=== PATIENT | male | born 1975 | race Caucasian/White ===

== ENCOUNTER 2017-05-15 16:31 | Emergency (ER) | payer SELFPAY ==
--- NOTE | 2017-05-15 19:01 | XRay Report ---
FINAL REPORT PROCEDURE: XR KNEE 3V RT TECHNIQUE: Right knee radiographs, AP, lateral and oblique views. CPT 62674 HISTORY: fall,edema,pain COMPARISON: No prior studies are available for comparison. FINDINGS: Fracture (s) and/or Dislocation(s): None . Alignment: Normal . Joint space(s): Moderate-sized joint effusion is visualized. Joint spaces appear well preserved.. Soft tissues: Normal . Bone mineralization: Normal . Foreign bodies: None . IMPRESSION: Moderate-sized joint effusion. No evidence of fracture or dislocation.
[2017-05-15] MEDS ORDERED: ULTRAM PO ONE (20:44)
--- NOTE | 2017-05-15 20:51 | Emergency Department Report ---
ED Lower Extremity HPI - General Chief Complaint: Extremity Injury, Lower Stated Complaint: RIGHT KNEE INJURY Time Seen by Provider: 05/15/17 20:00 Source: patient Mode of arrival: Wheelchair Limitations: No Limitations - History of Present Illness Initial Comments: This is a 41-year-old male nontoxic, well nourished in appearance, no acute signs of distress presents to the ED complaining of left knee pain 2 days. Patient stated he was walking on the street and right knee locked up and patient extend her knee and heard a popping sensation which immediately caused severe pain. Patient denies any trauma to the region. Patient is complaining also with swelling immediately that occurred at night. Denies numbness, tingling, decreased range of motion, fever, chills, joint redness, chest pain, shortness of breath, headache, or stiff neck. Patient state he has limited gait due to the pain. Patient denies any allergies or past medical history. MD Complaint: knee injury -: Gradual, days(s) (2) Injury: Knee: Right Type of Injury: other (locked up) Place: street/outdoors Severity: moderate Severity scale (0 -10): 8 Improves With: nothing Worsens With: weight bearing, movement Associated Symptoms: snap/pop sensation, swelling, able to partially bear weight. denies: numbness, tingling, unable to bear weight - Related Data Previous Rx's Medication Instructions Recorded Last Taken Type Ibuprofen [Motrin 600 MG tab] 600 mg PO Q8H PRN #30 tablet 05/15/17 Unknown Rx Allergies Allergy/AdvReac Type Severity Reaction Status Date / Time No Known Allergies Allergy Verified 05/15/17 17:01 ED Review of Systems ROS: Stated complaint: RIGHT KNEE INJURY Other details as noted in HPI Constitutional: denies: chills, fever Eyes: denies: eye pain, eye discharge, vision change ENT: denies: ear pain, throat pain Respiratory: denies: cough, shortness of breath, wheezing Cardiovascular: denies: chest pain, palpitations Endocrine: no symptoms reported Gastrointestinal: denies: abdominal pain, nausea, diarrhea Genitourinary: denies: urgency, dysuria Musculoskeletal: denies: back pain, joint swelling, arthralgia Skin: denies: rash, lesions Neurological: denies: headache, weakness, paresthesias Psychiatric: denies: anxiety, depression Hematological/Lymphatic: denies: easy bleeding, easy bruising ED Past Medical Hx - Past Medical History Previous Medical History?: No - Surgical History Past Surgical History?: No - Social History Smoking Status: Current Every Day Smoker Substance Use Type: Alcohol - Medications Home Medications: Home Medications Medication Instructions Recorded Confirmed Last Taken Type Ibuprofen [Motrin 600 MG tab] 600 mg PO Q8H PRN #30 tablet 05/15/17 Unknown Rx ED Physical Exam - General Limitations: No Limitations General appearance: alert, in no apparent distress - Head Head exam: Present: atraumatic, normocephalic, normal inspection - Eye Eye exam: Present: normal appearance, PERRL, EOMI. Absent: scleral icterus, conjunctival injection, nystagmus, periorbital swelling, periorbital tenderness Pupils: Present: normal accommodation - ENT ENT exam: Present: normal exam, normal orophraynx, mucous membranes moist, TM's normal bilaterally, normal external ear exam - Neck Neck exam: Present: normal inspection, full ROM. Absent: tenderness, meningismus, lymphadenopathy, thyromegaly - Respiratory Respiratory exam: Present: normal lung sounds bilaterally. Absent: respiratory distress, wheezes, rales, rhonchi, stridor, chest wall tenderness, accessory muscle use, decreased breath sounds, prolonged expiratory - Cardiovascular Cardiovascular Exam: Present: regular rate, normal rhythm, normal heart sounds. Absent: bradycardia, tachycardia, irregular rhythm, systolic murmur, diastolic murmur, rubs, gallop - GI/Abdominal GI/Abdominal exam: Present: soft, normal bowel sounds. Absent: distended, guarding, rebound, rigid, diminished bowel sounds - Rectal Rectal exam: Present: deferred - Extremities Exam Extremities exam: Present: normal inspection, full ROM, tenderness, normal capillary refill. Absent: pedal edema, joint swelling, calf tenderness - Expanded Lower Extremity Exam Right Hip exam: Present: normal inspection, full ROM, external rotation, internal rotation, pelvic stability. Absent: tenderness, swelling, abrasion, laceration , ecchymosis, deformity, crepidus, dislocation, erythema, shortening Upper Leg exam: Present: normal inspection, full ROM. Absent: tenderness, swelling, abrasion, laceration, ecchymosis, deformity, crepidus, dislocation, erythema Knee exam: Present: normal inspection, full ROM, tenderness, swelling, full knee extension. Absent: abrasion, laceration, ecchymosis, deformity, crepidus, dislocation, erythema, effusion, pain w/ pronation/supination, posterior draw sign, pain/laxity with valgus, pain/laxity with varus Lower Leg exam: Present: normal inspection, full ROM. Absent: tenderness, swelling, abrasion, laceration, ecchymosis, deformity, crepidus, dislocation, erythema, palpable cord, Diana's sign Ankle exam: Present: normal inspection, full ROM. Absent: tenderness, swelling , abrasion, laceration, ecchymosis, deformity, crepidus, dislocation, erythema, anterior draw sign Foot/Toe exam: Present: normal inspection, full ROM. Absent: tenderness, swelling, abrasion, laceration, ecchymosis, deformity, crepidus, dislocation, erythema, amputation, puncture wound, foreign body, calcaneal tenderness, tenderness at base of 5th metatarsal, nail avulsion, subungual hematoma Neuro vascular tendon exam: Present: no vascular compromise. Absent: pulse deficit, abnormal cap refill, motor deficit, sensory deficit, tendon deficit, extremity cold to touch, pallor, abnormal 2-point discrimination, decreased fine /light touch, foot drop, peroneal nerve deficit, significant pain with passive ROM of distal joint Gait: Positive: observed and limited by pain - Back Exam Back exam: Present: normal inspection, full ROM. Absent: tenderness, CVA tenderness (R), CVA tenderness (L), muscle spasm, paraspinal tenderness, vertebral tenderness, rash noted - Neurological Exam Neurological exam: Present: alert, oriented X3, CN II-XII intact, normal gait, reflexes normal - Psychiatric Psychiatric exam: Present: normal affect, normal mood - Skin Skin exam: Present: warm, dry, intact, normal color. Absent: rash ED Course Vital Signs 05/15/17 05/15/17 16:58 20:50 Temperature 98.2 F Pulse Rate 75 Respiratory 16 18 Rate Blood Pressure 121/94 O2 Sat by Pulse 99 Oximetry - Reevaluation(s) Reevaluation #1: 05/15/17 20:56 Patient is speaking in full sentences with no signs of distress noted. Reevaluation #2: 05/15/17 21:03 Patient's is seen at the time of discharge and stated she will go the patient home due to medication that'll make him sedated/drowsiness that was given to him in the ED (Ultram). ED Lower Extremity MDM - Radiology Data Radiology results: report reviewed interpreted by me: Dr. Gracia Moderate-sized joint effusion. No evidence of fracture or dislocation. - Medical Decision Making This is 41-year-old male right knee strain. X-ray has been obtained and dictated by radiologist. Patient notified of x-ray results with noted by the patient. Patient received ice and extremity as well as ibuprofen 800 milligrams by mouth in the ED. Patient was instructed to rest, elevate, ice extremity. Patient also received knee immobilizer with crutches and educated by nurse that he use crutches. Patient was referred to follow up with a primary care doctor/orthopedic doctor in 3-5 days or if symptoms worsen continue return to emergency room as soon as possible. At time time of discharge , the patient does not seem toxic or ill in appearance. No acute signs of distress noted. Patient agrees to discharge treatment plan of care. No further questions noted by the patient. Critical care attestation.: If time is entered above; I have spent that time in minutes in the direct care of this critically ill patient, excluding procedure time. ED Disposition Clinical Impression: Knee strain Qualifiers: Encounter type: initial encounter Laterality: right Qualified Code(s): S86.911A - Strain of unspecified muscle(s) and tendon(s) at lower leg level, right leg, initial encounter Disposition: DC-01 TO HOME OR SELFCARE Is pt being admited?: No Does the pt Need Aspirin: No Condition: Stable Instructions: Ibuprofen (By mouth), Crutch Instructions (ED), Knee Pain (ED), RICE Therapy (ED), Knee Immobilizer (ED) Additional Instructions: Follow-up with the orthopedic doctor in 3-5 days or if symptoms worsen to continue return to emergency room as was possible. Rest, elevate, ice extremity. Prescriptions: Ibuprofen [Motrin 600 MG tab] 600 mg PO Q8H PRN #30 tablet PRN Reason: Pain Referrals: PRIMARY CAREMD [Primary Care Provider] - 3-5 Days DIDIER CANELA MD [Staff Physician] - 3-5 Days [facility] [Outside] - 3-5 Days [facility] [Outside] - 3-5 Days
[2017-05-15 21:46] VITALS: BP 148/88
== END 2017-05-15 21:46 | disposition home or self-care (01) ==
LOC: ED 16:31
DX: S86.811A Strain of other muscle(s) and tendon(s) at lower leg level, right leg, initial encounter (principal); F17.200 Nicotine dependence, unspecified, uncomplicated; X58.XXXA Exposure to other specified factors, initial encounter; Y93.89 Activity, other specified; Y92.89 Other specified places as the place of occurrence of the external cause; Y99.8 Other external cause status

== ENCOUNTER 2017-09-12 23:28 | Inpatient (IN) | payer OTHER ==
[2017-09-13 01:22] LABS: Albumin 3.7 g/dL (3.9-5)
[2017-09-13] MEDS ORDERED: TYLENOL PO ONE (01:26)
[2017-09-13] MEDS ORDERED: NACL 0.9% 1000 ML 1,000 ML IV ONE ×2 (01:26→02:51)
[2017-09-13] MEDS ORDERED: ZOFRAN IV ONE (01:35)
[2017-09-13] MEDS ORDERED: ZOFRAN ONE (01:37)
[2017-09-13 01:49] LABS: Hemoglobin 18.8 gm/dl (11.8-15.2); Lymphocytes # (Auto) 0.4 K/mm3 (1.2-5.4); Lymphocytes % (Auto) 3.1 % (13.4-35.0); Mean Corpuscular HGB Conc 34 % (32-34); Mean Corpuscular Hemoglobin 32 pg (28-32); Mean Corpuscular Volume 93 fl (84-94); Monocytes # (Auto) 1.4 K/mm3 (0.0-0.8); Monocytes % (Auto) 11.4 % (0.0-7.3); Platelet Count 190 K/mm3 (140-440); Red Blood Count 5.91 M/mm3 (3.65-5.03); Red Cell Distribution Width 12.7 % (13.2-15.2)
[2017-09-13] MEDS ORDERED: TESSALON PERLES PO ONE (02:51)
[2017-09-13] MEDS ORDERED: REGLAN IV ONE (02:51)
[2017-09-13] MEDS ORDERED: PROTONIX IV ONE (02:53)
[2017-09-13] MEDS ORDERED: MORPHINE IV ONE (02:54)
[2017-09-13] MEDS ORDERED: PEPCID IV ONE (03:16)
--- NOTE | 2017-09-13 03:16 | Emergency Department Report ---
ED Abdominal Pain HPI - General Chief Complaint: Medical Clearance Stated Complaint: FLU SYMPTOMS Time Seen by Provider: 09/13/17 00:50 Source: patient Mode of arrival: Ambulatory Limitations: No Limitations - History of Present Illness Initial Comments: Patient is 41 years old male with no significant past medical history presented to the ER with cough, abdominal pain,nausea vomiting and diarrhea and fever. He also complaining of generalized body ache and headache for the last 3 days and unable to keep anything down. MD Complaint: abdominal pain Location: diffuse Migration to: epigastric Severity scale (0 -10): 5 Quality: cramping Associated Symptoms: nausea, vomiting, diarrhea, fever - Related Data Allergies Allergy/AdvReac Type Severity Reaction Status Date / Time No Known Allergies Allergy Verified 05/15/17 17:01 ED Review of Systems ROS: Stated complaint: FLU SYMPTOMS Other details as noted in HPI Comment: All other systems reviewed and negative Constitutional: chills, fever, weakness ENT: congestion Respiratory: cough, shortness of breath Gastrointestinal: abdominal pain, nausea, vomiting, diarrhea. denies: constipation, hematemesis, melena, hematochezia Neurological: denies: headache, weakness, numbness, paresthesias, confusion, abnormal gait ED Past Medical Hx - Past Medical History Previous Medical History?: No - Surgical History Past Surgical History?: No - Social History Smoking Status: Never Smoker ED Physical Exam - General Limitations: No Limitations General appearance: alert - Head Head exam: Present: atraumatic, normocephalic - Eye Eye exam: Present: normal appearance, PERRL - ENT ENT exam: Present: normal exam, normal orophraynx, mucous membranes moist - Neck Neck exam: Present: normal inspection, full ROM - Respiratory Respiratory exam: Present: normal lung sounds bilaterally. Absent: respiratory distress, wheezes, rales, rhonchi, stridor, chest wall tenderness, accessory muscle use, decreased breath sounds, prolonged expiratory - Cardiovascular Cardiovascular Exam: Present: regular rate, normal rhythm, normal heart sounds - GI/Abdominal GI/Abdominal exam: Present: soft, tenderness (diffuse), normal bowel sounds. Absent: distended, guarding, rebound, rigid, organomegaly, mass, bruit, pulsatile mass, hernia - Rectal Rectal exam: Present: normal inspection, normal rectal tone, heme (-) stool. Absent: black stool, bloody stool, fecal impaction, hemorrhoids, mass, tenderness - Extremities Exam Extremities exam: Present: normal inspection, full ROM, normal capillary refill - Back Exam Back exam: Present: normal inspection, full ROM. Absent: tenderness, CVA tenderness (R), CVA tenderness (L) - Neurological Exam Neurological exam: Present: alert, oriented X3, CN II-XII intact, normal gait - Psychiatric Psychiatric exam: Present: normal affect - Skin Skin exam: Present: warm, intact, normal color ED Course Vital Signs 09/13/17 09/13/17 09/13/17 00:20 00:57 01:00 Temperature 99.2 F 99.3 F Pulse Rate 150 H 111 H 115 H Respiratory 22 25 H 15 Rate Blood Pressure 112/64 120/86 Blood Pressure 120/86 [Left] O2 Sat by Pulse 100 95 96 Oximetry 09/13/17 09/13/17 09/13/17 01:50 02:00 03:00 Temperature Pulse Rate 106 H 106 H Respiratory 20 17 Rate Blood Pressure 123/83 133/88 Blood Pressure [Left] O2 Sat by Pulse 98 98 95 Oximetry ED Medical Decision Making - Lab Data Result diagrams: 09/13/17 00:23 09/13/17 00:23 - Radiology Data Radiology results: report reviewed Referring Physician: PERLITA KEATING Patient Name: ELENA LAUREANO Date of : 1975 Sex: Male Report Date: 2017-09-12 Report Status: Finalized Findings [address] [address] XRay Report Signed Patient: ELENA LAUREANO MR#: [id number] : 1975 Acct:[id number] Age/Sex: 41 / M ADM Date: 09/12/17 Loc: ED Attending Dr: Ordering Physician: PERLITA KEATING Date of Service: 09/13/17 Procedure(s): XR chest 1V ap Accession Number(s): [id number] cc: PERLITA KEATING Fluoro Time In Minutes: FINAL REPORT EXAM: XR CHEST 1V AP HISTORY: cough/fever TECHNIQUE: A portable upright view of the chest was submitted. FINDINGS: There are patchy infiltrates in the lingula and left lower lobe. The right lung is clear. The heart size is normal. Pleural fluid is not seen. The bones and soft tissues do not show any acute changes. IMPRESSION: Patchy pneumonia in the lingula and left lower lobe. Transcribed By: RB Dictated By: DIDIER BOYLE MD Electronically Authenticated By: DIDIER BOYLE MD Signed Date/Time: 09/12/172322 DD/ 22 TD/TT: 09/12/172322 - Medical Decision Making I Discussed the patient with Dr. Alexandra Thurston, I presented the patient, she agreed to admit the patient to her service. Critical care attestation.: If time is entered above; I have spent that time in minutes in the direct care of this critically ill patient, excluding procedure time. ED Disposition Clinical Impression: Left lower lobe pneumonia, Intractable vomiting Disposition: - OP ADMIT IP TO THIS HOSP Is pt being admited?: Yes Condition: Stable Instructions: Bacterial Pneumonia (ED) Referrals: LAVERN OLEARY MD [Primary Care Provider] - 3-5 Days
--- NOTE | 2017-09-13 03:26 | XRay Report ---
FINAL REPORT EXAM: XR CHEST 1V AP HISTORY: cough/fever TECHNIQUE: A portable upright view of the chest was submitted. FINDINGS: There are patchy infiltrates in the lingula and left lower lobe. The right lung is clear. The heart size is normal. Pleural fluid is not seen. The bones and soft tissues do not show any acute changes. IMPRESSION: Patchy pneumonia in the lingula and left lower lobe.
[2017-09-13] MEDS ORDERED: ROCEPHIN/NS 1 GM/50 ML 1 GM/50 ML BAG IV ONE (04:17)
[2017-09-13] MEDS ORDERED: cefTRIAXone 1 GM in NACL 0.9% 20 ML IV SCH (04:30)
[2017-09-13] MEDS ORDERED: ZITHROMAX 500 MG in NACL 0.9% 250ML 250 ML IV ONE (05:00)
[2017-09-13 05:57] LABS: Bacteria,Urine 1+ /HPF (Negative); Bilirubin,Urine NEG (Negative); Blood,Urine SM (Negative); Color,Urine Yellow (Yellow); Hyaline Casts,Urine 18 /LPF; Mucus,Urine FEW /HPF; Nitrite,Urine NEG (Negative); Urobilinogen,Urine < 2.0 mg/dL (<2.0)
[2017-09-13] MEDS ORDERED: MILK OF MAGNESIA PO PRN (06:03)
[2017-09-13] MEDS ORDERED: DULCOLAX PR PRN (06:03)
[2017-09-13] MEDS ORDERED: ZOFRAN IV PRN (06:03)
[2017-09-13] MEDS ORDERED: PROVENTIL IH PRN (06:03)
--- NOTE | 2017-09-13 06:24 | History and Physical Report ---
History of Present Illness Date of examination: 09/13/17 History of present illness: 41-year-old man with no medical problems comes emergency room with complaints of cough productive of blood-tinged sputum, fever and chills since . Also complaining of multiple episodes of vomiting and diarrhea, 4-5 episodes of diarrhea today, no recent antibiotic. Stated his is sick, she has the flu. Unable to tolerate oral intake, no weight loss Review Of Systems: Constitutional: no weight loss Ears, eyes, nose, mouth and throat: no nasal congestion, no nasal discharge, no sinus pressure, blurry vision, diplopia Neck: No neck pain or rigidity. Cardiovascular: No chest pain, palpitations Respiratory: No shortness of breath Gastrointestinal: No abdominal pain, hematochezia Genitourinary : no dysuria, frequency , hematuria Musculoskeletal: no muscle ache Integumentary: no rash, no pruritis Neurological: no parathesias, focal weakness Endocrine: no cold or heat intolerance, no polyuria or polydipsia Hematologic/Lymphatic: no easy bruising, no easy bleeding, no gland swelling Allergic/Immunologic: no urticaria, no angioedema. PAST MEDICAL HISTORY:none PAST SURGICAL HISTORY:hernia repair FAMILY HISTORY: Hypertension SOCIAL HISTORY: Denies alcohol, tobacco, drug Medications and Allergies Allergies Allergy/AdvReac Type Severity Reaction Status Date / Time No Known Allergies Allergy Verified 05/15/17 17:01 Home Medications Medication Instructions Recorded Confirmed Last Taken Type Levofloxacin [Levaquin] 750 mg PO QDAY #4 tablet 09/16/17 09/17/17 Unknown Rx Oseltamivir [Tamiflu] 75 mg PO BID #4 capsule 09/16/17 09/17/17 09/16/17 Rx Temazepam [Restoril] 15 mg PO QHS PRN #7 capsule 09/16/17 09/17/17 Unknown Rx Active Meds: Active Medications Acetaminophen (Tylenol) 650 mg PO Q4H PRN PRN Reason: Pain MILD(1-3)/Fever >100.5/PAREKH Albuterol (Proventil) 2.5 mg IH Q3HRT PRN PRN Reason: Shortness Of Breath Bisacodyl (Dulcolax) 10 mg AR QDAY PRN PRN Reason: Constipation unrelieved by MOM Ceftriaxone Sodium 1 gm/ (Sodium Chloride) 20 mls @ 2 mls/min IV ONCE.ED MITA Last Admin: 09/13/17 04:45 Dose: 2 mls/min Azithromycin 500 mg/ Sodium (Chloride) 250 mls @ 250 mls/hr IV Q24HR MITA PRN Reason: Protocol Ceftriaxone Sodium (Rocephin/Ns 1 Gm/50 Ml) 1 gm in 50 mls @ 100 mls/hr IV Q24HR MITA PRN Reason: Protocol Sodium Chloride (Nacl 0.9% 1000 Ml) 1,000 mls @ 125 mls/hr IV DIRECT MITA Magnesium Hydroxide (Milk Of Magnesia) 30 ml PO Q4H PRN PRN Reason: Constipation Ondansetron HCl (Zofran) 4 mg IV Q4H PRN PRN Reason: N/V unrelieved by Reglan Exam - Physical Exam Narrative exam: Gen. appearance: Patient lying in bed in no acute distress HEENT: Normocephalic/atraumatic, pupils equal round reactive to light, extra occular movement intact, no scleral icterus, no JVD or thyromegaly or nodule, neck is supple, mucous membrane moist, no erythema or exudate Heart: S1-S2, regular rate and rhythm Lungs: Crackles at the left base breathing comfortable Abdomen: Positive bowel sounds, nontender, nondistended, no organomegaly Extremities: No edema, cyanosis, clubbing Neuro:: Oriented 3 , cranial nerves II-12 intact, speech, motor intact Skin: No rash, nodules, warm dry - Constitutional Vitals: Temp Pulse Resp BP Pulse Ox 99.3 F 122 H 28 H 117/90 96 09/13/17 00:57 09/13/17 05:00 09/13/17 05:00 09/13/17 05:00 09/13/17 05:00 Results - Labs CBC & Chem 7: 09/14/17 01:20 09/14/17 01:20 Labs: Abnormal lab results 09/13/17 09/13/17 Range/Units 00:23 00:23 WBC 12.5 H (4.5-11.0) K/mm3 RBC 5.91 H (3.65-5.03) M/mm3 Hgb 18.8 H (11.8-15.2) gm/dl Hct 55.0 H (35.5-45.6) % RDW 12.7 L (13.2-15.2) % Lymph % (Auto) 3.1 L (13.4-35.0) % [place] % (Auto) 11.4 H (0.0-7.3) % Lymph # 0.4 L (1.2-5.4) K/mm3 [place] # 1.4 H (0.0-0.8) K/mm3 Seg Neutrophils % 85.5 H (40.0-70.0) % Seg Neutrophils # 10.7 H (1.8-7.7) K/mm3 Sodium 133 L (137-145) mmol/L Potassium 3.3 L (3.6-5.0) mmol/L Chloride 89.3 L (98-107) mmol/L Glucose 196 H (75-100) mg/dL AST 42 H (5-40) units/L Albumin 3.7 L (3.9-5) g/dL - Imaging and Cardiology EKG: image reviewed Chest x-ray: image reviewed Assessment and Plan Assessment Sepsis Community acquired pneumonia Gastroenteritis Dehydration Plan Admit to medicine Start IV fluids, IV Rocephin, Sumycin Follow cultures, check stool cultures DVT prophylaxis
[2017-09-13] MEDS: NACL 0.9% 1000 ML 1,000 ML IV SCH ×2 (06:59→18:12)
[2017-09-13] MEDS: TYLENOL PO PRN ×2 (10:31→17:55)
--- NOTE | 2017-09-13 12:21 | Event Note ---
Date: 09/13/17 No diarrhea x 24 hrs. will cancel c.diff test Patient with contact with family member with possible flu Droplet isolation ID consult [place]
[2017-09-13] MEDS: FLAGYL PO SCH ×2 (13:08→22:58)
--- NOTE | 2017-09-13 13:32 | Consultation ---
History of Present Illness - Reason for Consult Consult date: 09/13/17 sepsis Requesting physician: NGUYEN HOLLEY - History of Present Illness Patient is 41 years old male with no significant past medical history presented to the ER with cough, abdominal pain,nausea vomiting and diarrhea and fever. He also complaining of generalized body ache and headache for the last 3 days and unable to keep anything down. In the emergency room, initial temperature was 99.2, heart rate 150, respirations 22, O2 sat 100, blood pressure 112/64, initial white count 12.5, Hemoglobin 18.8, Creatinine 1.4. Urinalysis negative, Chest x-ray showed infiltrates in left lower lobe suggesting PNA Microbiology: Blood cultures: Influenza antigen neg 09/13 Current Antimicrobials: Flagyl 09/13 Ceftriaxone 09/13 Tamiflu 09/13 Previous Antimicrobials: Azithro 09/13 Medications and Allergies Allergies Allergy/AdvReac Type Severity Reaction Status Date / Time No Known Allergies Allergy Verified 05/15/17 17:01 Home Medications Medication Instructions Recorded Confirmed Last Taken Type No Known Home Medications [No 09/13/17 09/13/17 Unknown History Reported Home Medications] Active Meds: Active Medications Acetaminophen (Tylenol) 650 mg PO Q4H PRN PRN Reason: Pain MILD(1-3)/Fever >100.5/PAREKH Last Admin: 09/13/17 10:31 Dose: 650 mg Albuterol (Proventil) 2.5 mg IH Q3HRT PRN PRN Reason: Shortness Of Breath Bisacodyl (Dulcolax) 10 mg CA QDAY PRN PRN Reason: Constipation unrelieved by MOM Ceftriaxone Sodium (Rocephin/Ns 1 Gm/50 Ml) 1 gm in 50 mls @ 100 mls/hr IV Q24H MITA PRN Reason: Protocol Sodium Chloride (Nacl 0.9% 1000 Ml) 1,000 mls @ 125 mls/hr IV DIRECT MITA Last Admin: 09/13/17 06:59 Dose: 125 mls/hr Magnesium Hydroxide (Milk Of Magnesia) 30 ml PO Q4H PRN PRN Reason: Constipation Metronidazole (Flagyl) 500 mg PO Q8HR MITA Last Admin: 09/13/17 13:08 Dose: 500 mg Ondansetron HCl (Zofran) 4 mg IV Q4H PRN PRN Reason: N/V unrelieved by Reglan Oseltamivir Phosphate (Tamiflu) 75 mg PO BID MITA Stop: 09/17/17 22:01 Physical Examination - Constitutional Vitals: Vital Signs Temp Pulse Resp BP Pulse Ox 102.9 F H 112 H 16 127/82 94 09/13/17 09:26 09/13/17 09:26 09/13/17 09:26 09/13/17 09:26 09/13/17 09:42 Temperature -Last 24 Hours Temperature 102.9 F Temperature 99.3 F Temperature 99.2 F Results - Labs CBC & Chem 7: 09/13/17 00:23 09/13/17 00:23 Labs: Abnormal lab results 09/13/17 09/13/17 Range/Units 00:23 00:23 WBC 12.5 H (4.5-11.0) K/mm3 RBC 5.91 H (3.65-5.03) M/mm3 Hgb 18.8 H (11.8-15.2) gm/dl Hct 55.0 H (35.5-45.6) % RDW 12.7 L (13.2-15.2) % Lymph % (Auto) 3.1 L (13.4-35.0) % [place] % (Auto) 11.4 H (0.0-7.3) % Lymph # 0.4 L (1.2-5.4) K/mm3 [place] # 1.4 H (0.0-0.8) K/mm3 Seg Neutrophils % 85.5 H (40.0-70.0) % Seg Neutrophils # 10.7 H (1.8-7.7) K/mm3 Sodium 133 L (137-145) mmol/L Potassium 3.3 L (3.6-5.0) mmol/L Chloride 89.3 L (98-107) mmol/L Glucose 196 H (75-100) mg/dL AST 42 H (5-40) units/L Albumin 3.7 L (3.9-5) g/dL Assessment and Plan Assessment: 1) Sepsis: Present on admission, manifested by fever, tachycardia, hypotension, leukocytosis. Etiology most likely. 2) Pneumonia: Secondary to [place] community-acquired pneumonia, ? chest x ray showed inflitrates Plan: -obtain blood cultures -obtain respiratory cultures, procalcitonin, C-reactive protein (CRP) -check Legionella urine antigen, Streptococcus pneumoniae urine antigen, Mycoplasma serology, Chlamydia pneumophila serology -check Aspergillus antigen, Cryptococcal serum antigen, Histoplasma urine antigen, Histoplasma serology, Coccidiodes serology -check CRP, JOSE with reflex, C3, C4, ANCA, JOSE level -obtain HIV-4th generation test, CD4, HIV-viral load -continue ceftriaxone, flagyl day 1 of 7 -continue tamilflu day 1 of 5 -
[2017-09-13] MEDS: MOTRIN PO PRN (15:24)
[2017-09-13] MEDS: TAMIFLU PO SCH ×2 (15:25→22:58)
[2017-09-14] MEDS: NACL 0.9% 1000 ML 1,000 ML IV SCH ×2 (02:28→21:03)
[2017-09-14 04:16] LABS: Hematocrit 45.2 % (35.5-45.6); Hemoglobin 15.3 gm/dl (11.8-15.2); Mean Corpuscular HGB Conc 34 % (32-34); Mean Corpuscular Hemoglobin 32 pg (28-32); Mean Corpuscular Volume 93 fl (84-94); Platelet Count 121 K/mm3 (140-440); Red Blood Count 4.84 M/mm3 (3.65-5.03)
[2017-09-14 04:32] LABS: BUN/Creatinine Ratio 8; Blood Urea Nitrogen 9 mg/dL (9-20); Calcium 6.9 mg/dL (8.4-10.2); Hemolysis Index 8
[2017-09-14] MEDS: MOTRIN PO PRN ×2 (04:47→09:09)
[2017-09-14 05:24] LABS: Band Neutrophils # (Manual) 0.7 K/mm3; Basophils % (Manual) 0 % (0.0-1.8); Eosinophils % (Manual) 0 % (0.0-4.3); Myelocytes # (Manual) 0.3 K/mm3; Platelet Estimate Appears Decreased; Total Cells Counted 100
[2017-09-14] MEDS ORDERED: ZITHROMAX 500 MG in NACL 0.9% 250ML 250 ML IV SCH (06:00)
[2017-09-14] MEDS ORDERED: ROCEPHIN/NS 1 GM/50 ML 1 GM/50 ML BAG IV SCH (06:00)
[2017-09-14] MEDS ORDERED: cefTRIAXone 1 GM in NACL 0.9% 20 ML IV SCH (06:00)
[2017-09-14] MEDS: FLAGYL PO SCH ×2 (06:37→13:38)
[2017-09-14] MEDS: TAMIFLU PO SCH ×2 (11:29→21:04)
[2017-09-14] MEDS: MORPHINE IV PRN ×2 (13:38→21:04)
--- NOTE | 2017-09-14 14:17 | Progress Note ---
Assessment and Plan Assessment: 1) Sepsis: still fever. Etiology most likely pneumonia. 2) Pneumonia: Secondary to community-acquired pneumonia, ? post influenza pneumonia -chest x ray showed inflitrates -HIV neg -Influenza ag neg -CRP=22.9 3) Neutropenia / thrombocytopenia ? 4) Diarrhea ? viral Plan: -f/u respiratory cultures, blood cultures, procalcitonin -check Legionella urine antigen, Streptococcus pneumoniae urine antigen -continue ceftriaxone day 2 of 7 -add levaquin for atypical -stop flagyl -continue tamilflu day 2 of [address] Thorpe for your consultation, will follow up with you. Payton Lutz MD Infectious Diseases Specialist [facility], [place]) M [phone] O [phone] Subjective Date of service: 09/14/17 Principal diagnosis: pneumonia Interval history: Still feels sick, chest pain mainly with inspiration, still cough , still fever Microbiology: Blood cultures: 09/13 ngtd Influenza antigen neg 09/13 Current Antimicrobials: Flagyl 09/13 Ceftriaxone 09/13 Tamiflu 09/13 Previous Antimicrobials: Azithro 09/13 Objective - Exam Narrative Exam: General appearance: Alert in NAD, conversant Eyes: anicteric sclerae, moist conjunctivae; no lid-lag; PERRLA HENT: Atraumatic; oropharynx clear Neck: Trachea midline; supple, no thyromegaly or lymphadenopathy Lungs: silvana loud crackles CV: RRR, no murmurs Abdomen: Soft, non-tender Extremities: No peripheral edema or extremity lymphadenopathy Skin: Normal temperature, turgor and texture; no rash, ulcers or subcutaneous nodules Psych: Appropriate affect, alert and oriented to person, place and time. Neuro: alert and oriented x 3. Moving all extermities Lines: No CVL / PICC - Constitutional Vitals: Vital Signs Temp Pulse Resp BP Pulse Ox 99.1 F 111 H 18 106/76 94 09/14/17 13:43 09/14/17 13:43 09/14/17 13:43 09/14/17 13:43 09/14/17 10:00 Temperature -Last 24 Hours Temperature 99.1 F Temperature 100.7 F Temperature 99.4 F Temperature 99.4 F Temperature 102.1 F Temperature 103.1 F - Labs CBC & Chem 7: 09/14/17 01:20 09/14/17 01:20 Labs: Abnormal lab results 09/13/17 09/14/17 09/14/17 Range/Units 15:03 01:20 01:20 WBC 2.4 L (4.5-11.0) K/mm3 Hgb 15.3 H D (11.8-15.2) gm/dl RDW 13.0 L (13.2-15.2) % Plt Count 121 L (140-440) K/mm3 Seg Neuts % (Manual) 29.0 L (40.0-70.0) % Lymphocytes % (Manual) 12.0 L (13.4-35.0) % Monocytes % (Manual) 9.0 H (0.0-7.3) % Seg Neutrophils # Man 0.7 L (1.8-7.7) K/mm3 Lymphocytes # (Manual) 0.3 L (1.2-5.4) K/mm3 Sodium 134 L (137-145) mmol/L Chloride 96.0 L (98-107) mmol/L Carbon Dioxide 21 L (22-30) mmol/L Glucose 141 H (75-100) mg/dL Calcium 6.9 L D (8.4-10.2) mg/dL C-Reactive Protein 22.90 H (0.00-1.30) mg/dL
--- NOTE | 2017-09-14 14:28 | Cat Scan Report ---
FINAL REPORT PROCEDURE: CT CHEST WO CON TECHNIQUE: CT to include reformatted images of the chest was performed. HISTORY: pneumonia COMPARISON: Chest one view 09/13/2017 FINDINGS: Lack of IV contrast limits evaluation of the solid organs. There however mild mediastinal lymphadenopathy largest lymph node 2 centimeters in transverse diameter. There is no pericardial effusion. There is a trace left pleural effusion. There is no thoracic or included abdominal aortic aneurysm. Incidental views of the upper abdomen demonstrate no focal abnormality of the imaged portions of the liver, spleen, pancreas, gallbladder, adrenal glands, or kidneys. Fairly diffuse left lung airspace disease involving the lower lobe and lingula as well as to a lesser extent the remainder of the left upper lobe is seen. Lesser airspace disease of the right lung is present worst of the right lower lobe. No pulmonary parenchymal mass or pneumothorax is identified. There is no acute osseous abnormality. IMPRESSION: Suspect left worse than right lung pneumonia and trace left pleural fluid and reactive mediastinal lymphadenopathy. Follow-up to ensure resolution is recommended.
[2017-09-14] MEDS ORDERED: ROCEPHIN/NS 2 GM/100 ML 2 GM/100 ML BAG IV SCH (15:00)
[2017-09-14] MEDS ORDERED: cefTRIAXone 1 GM in NACL 0.9% 20 ML IV ONE (16:00)
[2017-09-14] MEDS: LEVAQUIN 750MG/150ML 750 MG/150 ML BAG IV SCH (16:16)
--- NOTE | 2017-09-14 17:29 | Progress Note ---
Assessment and Plan Assessment and plan: 41-year-old man with no medical problems comes emergency room with complaints of cough productive of blood-tinged sputum, fever and chills since . Also complaining of multiple episodes of vomiting and diarrhea, 4-5 episodes of diarrhea today, no recent antibiotic. Stated his is sick, she has to fluid. Unable to tolerate oral intake, no weight loss Sepsis Secondary to Pneumonia suspect Post Influenza * Continue tamiflu, abx, ID following Pneumonia possible Post Influenza * Tamiflu and IV abx. follow cultures Pleuritic chest pain * Likely muscle spasm, will start flexrile Gastroenteritis * PPI Pancytopenia * Could be secondary to fever, will continue to monitor Dehydration * Gentle Hydration DVT/GI prophy Plan of care discussed with the Patient and Nursing staff, History Interval history: Patient seen and examined in mild distress with shortness of breath and cough. Pleuritic in nature of chest discomfort Hospitalist Physical - Physical exam Narrative exam: - Physical Exam Narrative exam: Gen. appearance: Patient lying in bed in no acute distress, but uncomfortable. HEENT: Normocephalic/atraumatic, pupils equal round reactive to light, extra occular movement intact, no scleral icterus, no JVD or thyromegaly or nodule, neck is supple, mucous membrane moist, no erythema or exudates Heart: S1-S2, regular rate and rhythm Lungs: Crackles at the left base breathing comfortable Abdomen: Positive bowel sounds, nontender, nondistended, no organomegaly Extremities: No edema, cyanosis, clubbing Neuro:: Oriented 3 , cranial nerves II-12 intact, speech, motor intact Skin: No rash, nodules, warm dry - Constitutional Vitals: Temp Pulse Resp BP Pulse Ox 100.1 F H 121 H 18 115/80 95 09/14/17 17:01 09/14/17 17:01 09/14/17 17:01 09/14/17 17:01 09/14/17 17:01 Results - Labs CBC & Chem 7: 09/14/17 01:20 09/14/17 01:20 Labs: Laboratory Last Values WBC 2.4 K/mm3 (4.5-11.0) L 09/14/17 01:20 RBC 4.84 M/mm3 (3.65-5.03) 09/14/17 01:20 Hgb 15.3 gm/dl (11.8-15.2) H D 09/14/17 01:20 Hct 45.2 % (35.5-45.6) D 09/14/17 01:20 MCV 93 fl (84-94) 09/14/17 01:20 MCH 32 pg (28-32) 09/14/17 01:20 MCHC 34 % (32-34) 09/14/17 01:20 RDW 13.0 % (13.2-15.2) L 09/14/17 01:20 Plt Count 121 K/mm3 (140-440) L 09/14/17 01:20 Lymph % (Auto) 3.1 % (13.4-35.0) L 09/13/17 00:23 [place] % (Auto) 11.4 % (0.0-7.3) H 09/13/17 00:23 Eos % (Auto) 0.0 % (0.0-4.3) 09/13/17 00:23 Baso % (Auto) 0.0 % (0.0-1.8) 09/13/17 00:23 Lymph # 0.4 K/mm3 (1.2-5.4) L 09/13/17 00:23 Gibson # 1.4 K/mm3 (0.0-0.8) H 09/13/17 00:23 Eos # 0.0 K/mm3 (0.0-0.4) 09/13/17 00:23 Baso # 0.0 K/mm3 (0.0-0.1) 09/13/17 00:23 Add Manual Diff Complete 09/14/17 01:20 Total Counted 100 09/14/17 01:20 Seg Neutrophils % 85.5 % (40.0-70.0) H 09/13/17 00:23 Seg Neuts % (Manual) 29.0 % (40.0-70.0) L 09/14/17 01:20 Band Neutrophils % 28.0 % 09/14/17 01:20 Lymphocytes % (Manual) 12.0 % (13.4-35.0) L 09/14/17 01:20 Reactive Lymphs % (Man) 1.0 % 09/14/17 01:20 Monocytes % (Manual) 9.0 % (0.0-7.3) H 09/14/17 01:20 Eosinophils % (Manual) 0 % (0.0-4.3) 09/14/17 01:20 Basophils % (Manual) 0 % (0.0-1.8) 09/14/17 01:20 Metamyelocytes % 7.0 % 09/14/17 01:20 Myelocytes % 14.0 % 09/14/17 01:20 Promyelocytes % 0 % 09/14/17 01:20 Blast Cells % 0 % 09/14/17 01:20 Nucleated RBC % Not Reportable 09/14/17 01:20 Seg Neutrophils # 10.7 K/mm3 (1.8-7.7) H 09/13/17 00:23 Seg Neutrophils # Man 0.7 K/mm3 (1.8-7.7) L 09/14/17 01:20 Band Neutrophils # 0.7 K/mm3 09/14/17 01:20 Lymphocytes # (Manual) 0.3 K/mm3 (1.2-5.4) L 09/14/17 01:20 Abs React Lymphs (Man) 0.0 K/mm3 09/14/17 01:20 Monocytes # (Manual) 0.2 K/mm3 (0.0-0.8) 09/14/17 01:20 Eosinophils # (Manual) 0.0 K/mm3 (0.0-0.4) 09/14/17 01:20 Basophils # (Manual) 0.0 K/mm3 (0.0-0.1) 09/14/17 01:20 Metamyelocytes # 0.2 K/mm3 09/14/17 01:20 Myelocytes # 0.3 K/mm3 09/14/17 01:20 Promyelocytes # 0.0 K/mm3 09/14/17 01:20 Blast Cells # 0.0 K/mm3 09/14/17 01:20 WBC Morphology Not Reportable 09/14/17 01:20 Hypersegmented Neuts Not Reportable 09/14/17 01:20 Hyposegmented Neuts Not Reportable 09/14/17 01:20 Hypogranular Neuts Not Reportable 09/14/17 01:20 Smudge Cells Not Reportable 09/14/17 01:20 Toxic Granulation Not Reportable 09/14/17 01:20 Toxic Vacuolation Not Reportable 09/14/17 01:20 Dohle Bodies Not Reportable 09/14/17 01:20 Pelger-Huet Anomaly Not Reportable 09/14/17 01:20 Rufino Rods Not Reportable 09/14/17 01:20 Platelet Estimate Appears decreased 09/14/17 01:20 Clumped Platelets Not Reportable 09/14/17 01:20 Plt Clumps, EDTA Not Reportable 09/14/17 01:20 Large Platelets Not Reportable 09/14/17 01:20 Giant Platelets Not Reportable 09/14/17 01:20 Platelet Satelliting Not Reportable 09/14/17 01:20 Plt Morphology Comment Not Reportable 09/14/17 01:20 RBC Morphology Not Reportable 09/14/17 01:20 Dimorphic RBCs Not Reportable 09/14/17 01:20 Polychromasia Not Reportable 09/14/17 01:20 Hypochromasia Not Reportable 09/14/17 01:20 Poikilocytosis Not Reportable 09/14/17 01:20 Anisocytosis Not Reportable 09/14/17 01:20 Microcytosis Not Reportable 09/14/17 01:20 Macrocytosis Not Reportable 09/14/17 01:20 Spherocytes Not Reportable 09/14/17 01:20 Pappenheimer Bodies Not Reportable 09/14/17 01:20 Sickle Cells Not Reportable 09/14/17 01:20 Target Cells Not Reportable 09/14/17 01:20 Tear Drop Cells Not Reportable 09/14/17 01:20 Ovalocytes Not Reportable 09/14/17 01:20 Helmet Cells Not Reportable 09/14/17 01:20 Lunsford-Velarde Bodies Not Reportable 09/14/17 01:20 [place] Rings Not Reportable 09/14/17 01:20 [place] Cells Not Reportable 09/14/17 01:20 Bite Cells Not Reportable 09/14/17 01:20 Crenated Cell Not Reportable 09/14/17 01:20 Elliptocytes Not Reportable 09/14/17 01:20 Acanthocytes (Spur) Not Reportable 09/14/17 01:20 Rouleaux Not Reportable 09/14/17 01:20 Hemoglobin C Crystals Not Reportable 09/14/17 01:20 Schistocytes Not Reportable 09/14/17 01:20 Malaria parasites Not Reportable 09/14/17 01:20 Flip Bodies Not Reportable 09/14/17 01:20 Hem Pathologist Commnt No 09/14/17 01:20 Sodium 134 mmol/L (137-145) L 09/14/17 01:20 Potassium 3.6 mmol/L (3.6-5.0) 09/14/17 01:20 Chloride 96.0 mmol/L (98-107) L 09/14/17 01:20 Carbon Dioxide 21 mmol/L (22-30) L 09/14/17 01:20 Anion Gap 21 mmol/L 09/14/17 01:20 BUN 9 mg/dL (9-20) 09/14/17 01:20 Creatinine 1.1 mg/dL (0.8-1.5) 09/14/17 01:20 Estimated GFR > 60 ml/min 09/14/17 01:20 BUN/Creatinine Ratio 8 % 09/14/17 01:20 Glucose 141 mg/dL (75-100) H 09/14/17 01:20 Calcium 6.9 mg/dL (8.4-10.2) L D 09/14/17 01:20 Total Bilirubin 0.30 mg/dL (0.1-1.2) 09/13/17 00:23 AST 42 units/L (5-40) H 09/13/17 00:23 ALT 27 units/L (7-56) 09/13/17 00:23 Alkaline Phosphatase 50 units/L (35-129) 09/13/17 00:23 C-Reactive Protein 22.90 mg/dL (0.00-1.30) H 09/13/17 15:03 Total Protein 6.3 g/dL (6.3-8.2) 09/13/17 00:23 Albumin 3.7 g/dL (3.9-5) L 09/13/17 00:23 Albumin/Globulin Ratio 1.4 % 09/13/17 00:23 Urine Color Yellow (Yellow) 09/13/17 05:15 Urine Turbidity Clear (Clear) 09/13/17 05:15 Urine pH 5.0 (5.0-7.0) 09/13/17 05:15 Ur Specific [place] 1.019 (1.003-1.030) 09/13/17 05:15 Urine Protein 30 mg/dl mg/dL (Negative) 09/13/17 05:15 Urine Glucose (UA) Neg mg/dL (Negative) 09/13/17 05:15 Urine Ketones Tr mg/dL (Negative) 09/13/17 05:15 Urine Blood Sm (Negative) 09/13/17 05:15 Urine Nitrite Neg (Negative) 09/13/17 05:15 Urine Bilirubin Neg (Negative) 09/13/17 05:15 Urine Urobilinogen < 2.0 mg/dL (<2.0) 09/13/17 05:15 Ur Leukocyte Esterase Neg (Negative) 09/13/17 05:15 Urine WBC (Auto) 5.0 /HPF (0.0-6.0) 09/13/17 05:15 Urine RBC (Auto) 3.0 /HPF (0.0-6.0) 09/13/17 05:15 U Epithel Cells (Auto) < 1.0 /HPF (0-13.0) 09/13/17 05:15 Urine Bacteria (Auto) 1+ /HPF (Negative) 09/13/17 05:15 Hyaline Casts 18 /LPF 09/13/17 05:15 Urine Mucus Few /HPF 09/13/17 05:15 HIV 1&2 Antibody Rapid Non react (Non React) 09/13/17 15:00 HIV P24 Antigen Non react (Non React) 09/13/17 15:00 - Imaging and Cardiology CT scan - chest: image reviewed (Bilateral Pneumonia left worse than right. )
[2017-09-14] MEDS: RESTORIL PO PRN (21:05)
[2017-09-15] MEDS: NACL 0.9% 1000 ML 1,000 ML IV SCH ×2 (05:08→14:27)
[2017-09-15] MEDS: MORPHINE IV PRN ×3 (05:09→20:20)
[2017-09-15] MEDS: TYLENOL PO PRN (08:43)
[2017-09-15] MEDS: LEVAQUIN 750MG/150ML 750 MG/150 ML BAG IV SCH (11:01)
[2017-09-15] MEDS: TAMIFLU PO SCH ×2 (11:01→22:59)
--- NOTE | 2017-09-15 11:41 | Progress Note ---
Assessment and Plan Assessment: 1) Sepsis: still fever. Etiology most likely pneumonia. 2) Pneumonia: Secondary ? to community-acquired pneumonia, ? post influenza pneumonia -chest x ray showed inflitrates -HIV neg -Influenza ag neg -CRP=22.9 3) Neutropenia / thrombocytopenia ? viral. wbc is 2.4 4) Diarrhea ? viral Plan: -f/u respiratory cultures, blood cultures, procalcitonin -f/u Legionella urine antigen, Streptococcus pneumoniae urine antigen -continue ceftriaxone day 3 of 7 -continue levaquin for atypical 2 of 7 -continue tamilflu day 3 of 5 -monitor fever Thank you Dr Thorpe for your consultation, will follow up with you. Gurpreet Stein NP-C for Dr. Payton Lutz MD Infectious Diseases Specialist [facility] ([facility] M [phone] O [phone] Subjective Date of service: 09/15/17 Principal diagnosis: pneumonia Interval history: Microbiology: Blood cultures: Influenza antigen neg 09/13 Current Antimicrobials: Levaquin 09/14 Ceftriaxone 09/13 Tamiflu 09/13 Previous Antimicrobials: Azithro 09/13 flagyl 09/13 Objective - Exam Narrative Exam: General appearance: Alert in NAD, conversant Eyes: anicteric sclerae, moist conjunctivae; no lid-lag; PERRLA HENT: Atraumatic; oropharynx clear Neck: Trachea midline; supple, no thyromegaly or lymphadenopathy Lungs: diminished silvana with crackles CV: RRR, no murmurs Abdomen: Soft, non-tender Extremities: No peripheral edema or extremity lymphadenopathy Skin: Normal temperature, turgor and texture; no rash, ulcers or subcutaneous nodules Psych: Appropriate affect, calm and cooperative Neuro: alert and oriented x 3. Moving all extermities Lines: No CVL / PICC - Constitutional Vitals: Vital Signs Temp Pulse Resp BP Pulse Ox 101.3 F H 123 H 18 137/87 90 09/15/17 07:40 09/15/17 07:40 09/15/17 08:43 09/15/17 07:40 09/15/17 07:40 Temperature -Last 24 Hours Temperature 101.3 F Temperature 99.7 F Temperature 99.6 F Temperature 100.1 F Temperature 99.1 F - Labs CBC & Chem 7: 09/14/17 01:20 09/14/17 01:20
[2017-09-15] MEDS: cefTRIAXone 2 GM in NACL 0.9% 20 ML IV SCH (12:46)
--- NOTE | 2017-09-15 16:47 | Progress Note ---
Assessment and Plan Assessment and plan: 41-year-old man with no medical problems comes emergency room with complaints of cough productive of blood-tinged sputum, fever and chills since . Also complaining of multiple episodes of vomiting and diarrhea, 4-5 episodes of diarrhea today, no recent antibiotic. Stated his is sick, she has to fluid. Unable to tolerate oral intake, no weight loss Sepsis Secondary to Pneumonia suspect Post Influenza * Continue tamiflu, abx, ID following Pneumonia possible Post Influenza * Tamiflu and IV abx. follow cultures Pleuritic chest pain * Likely muscle spasm, will start flexrile Gastroenteritis * PPI Pancytopenia with neutropenia * Could be secondary to sepsis, will continue to monitor * Ceftriaxone increase to 2 g Dehydration * Gentle Hydration DVT/GI prophy Plan of care discussed with the Patient and Nursing staff, History Interval history: Patient seen and examined still uncomfortable although shortness of breath has improved. Chest pain has resolved with addition of the muscle relaxants. Hospitalist Physical - Physical exam Narrative exam: Gen. appearance: Patient lying in bed in no acute distress, but uncomfortable. HEENT: Normocephalic/atraumatic, pupils equal round reactive to light, extra occular movement intact, no scleral icterus, no JVD or thyromegaly or nodule, neck is supple, mucous membrane moist, no erythema or exudates Heart: S1-S2, regular rate and rhythm Lungs: Crackles at the left base breathing comfortable Abdomen: Positive bowel sounds, nontender, nondistended, no organomegaly Extremities: No edema, cyanosis, clubbing Neuro:: Oriented 3 , cranial nerves II-12 intact, speech, motor intact Skin: No rash, nodules, warm dry - Constitutional Vitals: Temp Pulse Resp BP Pulse Ox 100.2 F H 118 H 22 124/84 94 09/15/17 12:22 09/15/17 12:22 09/15/17 12:22 09/15/17 12:22 09/15/17 12:22 Results - Labs CBC & Chem 7: 09/14/17 01:20 09/14/17 01:20 Labs: Laboratory Last Values WBC 2.4 K/mm3 (4.5-11.0) L 09/14/17 01:20 RBC 4.84 M/mm3 (3.65-5.03) 09/14/17 01:20 Hgb 15.3 gm/dl (11.8-15.2) H D 09/14/17 01:20 Hct 45.2 % (35.5-45.6) D 09/14/17 01:20 MCV 93 fl (84-94) 09/14/17 01:20 MCH 32 pg (28-32) 09/14/17 01:20 MCHC 34 % (32-34) 09/14/17 01:20 RDW 13.0 % (13.2-15.2) L 09/14/17 01:20 Plt Count 121 K/mm3 (140-440) L 09/14/17 01:20 Lymph % (Auto) 3.1 % (13.4-35.0) L 09/13/17 00:23 [place] % (Auto) 11.4 % (0.0-7.3) H 09/13/17 00:23 Eos % (Auto) 0.0 % (0.0-4.3) 09/13/17 00:23 Baso % (Auto) 0.0 % (0.0-1.8) 09/13/17 00:23 Lymph # 0.4 K/mm3 (1.2-5.4) L 09/13/17 00:23 [place] # 1.4 K/mm3 (0.0-0.8) H 09/13/17 00:23 Eos # 0.0 K/mm3 (0.0-0.4) 09/13/17 00:23 Baso # 0.0 K/mm3 (0.0-0.1) 09/13/17 00:23 Add Manual Diff Complete 09/14/17 01:20 Total Counted 100 09/14/17 01:20 Seg Neutrophils % 85.5 % (40.0-70.0) H 09/13/17 00:23 Seg Neuts % (Manual) 29.0 % (40.0-70.0) L 09/14/17 01:20 Band Neutrophils % 28.0 % 09/14/17 01:20 Lymphocytes % (Manual) 12.0 % (13.4-35.0) L 09/14/17 01:20 Reactive Lymphs % (Man) 1.0 % 09/14/17 01:20 Monocytes % (Manual) 9.0 % (0.0-7.3) H 09/14/17 01:20 Eosinophils % (Manual) 0 % (0.0-4.3) 09/14/17 01:20 Basophils % (Manual) 0 % (0.0-1.8) 09/14/17 01:20 Metamyelocytes % 7.0 % 09/14/17 01:20 Myelocytes % 14.0 % 09/14/17 01:20 Promyelocytes % 0 % 09/14/17 01:20 Blast Cells % 0 % 09/14/17 01:20 Nucleated RBC % Not Reportable 09/14/17 01:20 Seg Neutrophils # 10.7 K/mm3 (1.8-7.7) H 09/13/17 00:23 Seg Neutrophils # Man 0.7 K/mm3 (1.8-7.7) L 09/14/17 01:20 Band Neutrophils # 0.7 K/mm3 09/14/17 01:20 Lymphocytes # (Manual) 0.3 K/mm3 (1.2-5.4) L 09/14/17 01:20 Abs React Lymphs (Man) 0.0 K/mm3 09/14/17 01:20 Monocytes # (Manual) 0.2 K/mm3 (0.0-0.8) 09/14/17 01:20 Eosinophils # (Manual) 0.0 K/mm3 (0.0-0.4) 09/14/17 01:20 Basophils # (Manual) 0.0 K/mm3 (0.0-0.1) 09/14/17 01:20 Metamyelocytes # 0.2 K/mm3 09/14/17 01:20 Myelocytes # 0.3 K/mm3 09/14/17 01:20 Promyelocytes # 0.0 K/mm3 09/14/17 01:20 Blast Cells # 0.0 K/mm3 09/14/17 01:20 WBC Morphology Not Reportable 09/14/17 01:20 Hypersegmented Neuts Not Reportable 09/14/17 01:20 Hyposegmented Neuts Not Reportable 09/14/17 01:20 Hypogranular Neuts Not Reportable 09/14/17 01:20 Smudge Cells Not Reportable 09/14/17 01:20 Toxic Granulation Not Reportable 09/14/17 01:20 Toxic Vacuolation Not Reportable 09/14/17 01:20 Dohle Bodies Not Reportable 09/14/17 01:20 Pelger-Huet Anomaly Not Reportable 09/14/17 01:20 Rufino Rods Not Reportable 09/14/17 01:20 Platelet Estimate Appears decreased 09/14/17 01:20 Clumped Platelets Not Reportable 09/14/17 01:20 Plt Clumps, EDTA Not Reportable 09/14/17 01:20 Large Platelets Not Reportable 09/14/17 01:20 Giant Platelets Not Reportable 09/14/17 01:20 Platelet Satelliting Not Reportable 09/14/17 01:20 Plt Morphology Comment Not Reportable 09/14/17 01:20 RBC Morphology Not Reportable 09/14/17 01:20 Dimorphic RBCs Not Reportable 09/14/17 01:20 Polychromasia Not Reportable 09/14/17 01:20 Hypochromasia Not Reportable 09/14/17 01:20 Poikilocytosis Not Reportable 09/14/17 01:20 Anisocytosis Not Reportable 09/14/17 01:20 Microcytosis Not Reportable 09/14/17 01:20 Macrocytosis Not Reportable 09/14/17 01:20 Spherocytes Not Reportable 09/14/17 01:20 Pappenheimer Bodies Not Reportable 09/14/17 01:20 Sickle Cells Not Reportable 09/14/17 01:20 Target Cells Not Reportable 09/14/17 01:20 Tear Drop Cells Not Reportable 09/14/17 01:20 Ovalocytes Not Reportable 09/14/17 01:20 Helmet Cells Not Reportable 09/14/17 01:20 Lunsford-Bryan Bodies Not Reportable 09/14/17 01:20 [place] Rings Not Reportable 09/14/17 01:20 [place] Cells Not Reportable 09/14/17 01:20 Bite Cells Not Reportable 09/14/17 01:20 Crenated Cell Not Reportable 09/14/17 01:20 Elliptocytes Not Reportable 09/14/17 01:20 Acanthocytes (Spur) Not Reportable 09/14/17 01:20 Rouleaux Not Reportable 09/14/17 01:20 Hemoglobin C Crystals Not Reportable 09/14/17 01:20 Schistocytes Not Reportable 09/14/17 01:20 Malaria parasites Not Reportable 09/14/17 01:20 Flip Bodies Not Reportable 09/14/17 01:20 Hem Pathologist Commnt No 09/14/17 01:20 Sodium 134 mmol/L (137-145) L 09/14/17 01:20 Potassium 3.6 mmol/L (3.6-5.0) 09/14/17 01:20 Chloride 96.0 mmol/L (98-107) L 09/14/17 01:20 Carbon Dioxide 21 mmol/L (22-30) L 09/14/17 01:20 Anion Gap 21 mmol/L 09/14/17 01:20 BUN 9 mg/dL (9-20) 09/14/17 01:20 Creatinine 1.1 mg/dL (0.8-1.5) 09/14/17 01:20 Estimated GFR > 60 ml/min 09/14/17 01:20 BUN/Creatinine Ratio 8 % 09/14/17 01:20 Glucose 141 mg/dL (75-100) H 09/14/17 01:20 Calcium 6.9 mg/dL (8.4-10.2) L D 09/14/17 01:20 Total Bilirubin 0.30 mg/dL (0.1-1.2) 09/13/17 00:23 AST 42 units/L (5-40) H 09/13/17 00:23 ALT 27 units/L (7-56) 09/13/17 00:23 Alkaline Phosphatase 50 units/L (35-129) 09/13/17 00:23 C-Reactive Protein 22.90 mg/dL (0.00-1.30) H 09/13/17 15:03 Total Protein 6.3 g/dL (6.3-8.2) 09/13/17 00:23 Albumin 3.7 g/dL (3.9-5) L 09/13/17 00:23 Albumin/Globulin Ratio 1.4 % 09/13/17 00:23 Urine Color Yellow (Yellow) 09/13/17 05:15 Urine Turbidity Clear (Clear) 09/13/17 05:15 Urine pH 5.0 (5.0-7.0) 09/13/17 05:15 Ur Specific [place] 1.019 (1.003-1.030) 09/13/17 05:15 Urine Protein 30 mg/dl mg/dL (Negative) 09/13/17 05:15 Urine Glucose (UA) Neg mg/dL (Negative) 09/13/17 05:15 Urine Ketones Tr mg/dL (Negative) 09/13/17 05:15 Urine Blood Sm (Negative) 09/13/17 05:15 Urine Nitrite Neg (Negative) 09/13/17 05:15 Urine Bilirubin Neg (Negative) 09/13/17 05:15 Urine Urobilinogen < 2.0 mg/dL (<2.0) 09/13/17 05:15 Ur Leukocyte Esterase Neg (Negative) 09/13/17 05:15 Urine WBC (Auto) 5.0 /HPF (0.0-6.0) 09/13/17 05:15 Urine RBC (Auto) 3.0 /HPF (0.0-6.0) 09/13/17 05:15 U Epithel Cells (Auto) < 1.0 /HPF (0-13.0) 09/13/17 05:15 Urine Bacteria (Auto) 1+ /HPF (Negative) 09/13/17 05:15 Hyaline Casts 18 /LPF 09/13/17 05:15 Urine Mucus Few /HPF 09/13/17 05:15 HIV 1&2 Antibody Rapid Non react (Non React) 09/13/17 15:00 HIV P24 Antigen Non react (Non React) 09/13/17 15:00
[2017-09-15] MEDS: RESTORIL PO PRN (22:59)
[2017-09-16] MEDS: MOTRIN PO PRN (05:27)
[2017-09-16 08:15] VITALS: BP 128/92
--- NOTE | 2017-09-16 08:49 | Progress Note ---
Assessment and Plan Assessment: 1) Sepsis: resolved. Etiology most likely pneumonia. 2) Pneumonia: Secondary to community-acquired pneumonia, ? post influenza pneumonia -chest x ray showed inflitrates -CT chest silvana consolidation L > R with reactive mediastinal LNs -HIV neg -Influenza ag neg -CRP=22.9 3) Neutropenia / thrombocytopenia ? 4) Diarrhea ? viral Plan: -f/u Legionella urine antigen, Streptococcus pneumoniae urine antigen -continue ceftriaxone and levaquin - day 4 of 7 -stop contact isolation -continue tamilflu day 4 of 5 -upon discharge will continue levaquin 750 mg po qday until 09/19 I am signing off Thank you Dr Thorpe for your consultation, will follow up with you. Payton Lutz MD Infectious Diseases Specialist [facility] ([facility] M [phone] O [phone] Subjective Date of service: 09/16/17 Principal diagnosis: pneumonia Interval history: feels better, no chest pain with inspiration, still cough no diarrhea no fever. Microbiology: Blood cultures: 09/13 ngtd Influenza antigen neg 09/13 Current Antimicrobials: Flagyl 09/13 Ceftriaxone 09/13 Tamiflu 09/13 Previous Antimicrobials: Azithro 09/13 Objective - Exam Narrative Exam: General appearance: Alert in NAD, conversant Eyes: anicteric sclerae, moist conjunctivae; no lid-lag; PERRLA HENT: Atraumatic; oropharynx clear Neck: Trachea midline; supple, no thyromegaly or lymphadenopathy Lungs: silvana scattered crackles CV: RRR, no murmurs Abdomen: Soft, non-tender Extremities: No peripheral edema or extremity lymphadenopathy Skin: Normal temperature, turgor and texture; no rash, ulcers or subcutaneous nodules Psych: Appropriate affect, alert and oriented to person, place and time. Neuro: alert and oriented x 3. Moving all extermities Lines: No CVL / PICC - Constitutional Vitals: Vital Signs Temp Pulse Resp BP Pulse Ox 98.7 F 104 H 22 128/92 94 09/16/17 08:11 09/16/17 08:11 09/16/17 08:11 09/16/17 08:11 09/16/17 08:11 Temperature -Last 24 Hours Temperature 98.7 F Temperature 99.7 F Temperature 99.7 F Temperature 99.8 F Temperature 100.4 F Temperature 100.2 F - Labs CBC & Chem 7: 09/14/17 01:20 09/14/17 01:20
--- NOTE | 2017-09-16 09:42 | Discharge Summary ---
Providers - Providers Date of Admission: 09/13/17 06:04 Attending physician: NGUYEN HOLLEY MD 09/13/17 12:20 Consult to Physician [CONS] Routine Consulting Provider: ELBA DE ANDA Reason For Exam: sepsis Place consult to:: DR. AVENDANO Notified:: DR. AVENDANO Phone number called:: [phone] Was contact made?: Yes If yes, spoke with:: DR. Salazar Time called:: 12:53 Comment:: VANESSA BUSTAMANTE MD Primary care physician: LAVERN OLEARY Hospitalization Reason for admission: sepsis Condition: Stable Hospital course: 41-year-old man with no medical problems comes emergency room with complaints of cough productive of blood-tinged sputum, fever and chills since . Also complaining of multiple episodes of vomiting and diarrhea, 4-5 episodes of diarrhea today, no recent antibiotic. Stated his is sick, she has to fluid. Unable to tolerate oral intake, no weight loss admission patient was noted to have pneumonia which is felt to be post influenza pneumonia was treated as such. Was started on Tamiflu and is on day 4 of 5 and Levaquin day 4 of 7 which she will continue outpatient. His by mouth intake improved remarkably. He did have episode of insomnia in the hospital which was treated appropriately. He has remained afebrile for 24 hours per infectious disease is stable for discharge to complete a treatment outpatient. I have recommended to the patient needs to follow up with primary care physician and to have a repeat imaging study in 3-6 weeks to ensure complete resolution. Discharge diagnosis Sepsis Secondary to Pneumonia suspect Post Influenza Pneumonia -Post Influenza Pleuritic chest pain * Secondary to costochondritis Gastroenteritis * PPI Pancytopenia with neutropenia Insomnia Dehydration Disposition: TO HOME OR SELFCARE Time spent for discharge: 35 mins Core Measure Documentation - Palliative Care Palliative Care/ Comfort Measures: Not Applicable - Core Measures Any of the following diagnoses?: none - VTE Discharge Requirements Deep Vein Thrombosis/Pulmonary Embolism Present on Admission: No Exam - Physical Exam Narrative exam: Gen. appearance: Patient lying in bed in no acute distress, but uncomfortable. HEENT: Normocephalic/atraumatic, pupils equal round reactive to light, extra occular movement intact, no scleral icterus, no JVD or thyromegaly or nodule, neck is supple, mucous membrane moist, no erythema or exudates Heart: S1-S2, regular rate and rhythm Lungs: Clear at the left base breathing comfortable Abdomen: Positive bowel sounds, nontender, nondistended, no organomegaly Extremities: No edema, cyanosis, clubbing Neuro:: Oriented 3 , cranial nerves II-12 intact, speech, motor intact Skin: No rash, nodules, warm dry - Constitutional Vitals: Temp Pulse Resp BP Pulse Ox 98.7 F 104 H 22 128/92 94 09/16/17 08:11 09/16/17 08:11 09/16/17 08:11 09/16/17 08:11 09/16/17 08:11 Plan Activity: advance as tolerated, fall precautions Diet: regular Additional Instructions: Repeat chest x-ray in 3-6 weeks Follow up with: LAVERN OLEARY MD [Primary Care Provider] - 3-5 Days Prescriptions: Temazepam [Restoril] 15 mg PO QHS PRN #7 capsule PRN Reason: Sleep Levofloxacin [Levaquin] 750 mg PO QDAY #4 tablet Oseltamivir [Tamiflu] 75 mg PO BID #4 capsule
[2017-09-16] MEDS: LEVAQUIN 750MG/150ML 750 MG/150 ML BAG IV SCH (10:01)
[2017-09-16] MEDS: TAMIFLU PO SCH (10:02)
[2017-09-16] MEDS: cefTRIAXone 2 GM in NACL 0.9% 20 ML IV SCH (10:02)
[2017-09-16 22:57] LABS: HIV-1 RNA QN PCR <1.30 Log cps/mL (<1.30); HIV-1 RNA QN PCR <20 copies/mL (<20)
== END 2017-09-16 14:00 | disposition home or self-care (01) | DRG 871 ==
LOC: ED 23:28 → 3A 09-13 06:04
PROVIDERS: ADMIT Internal Medicine; ATTEND Internal Medicine
DX: A41.9 Sepsis, unspecified organism (principal); J18.1 Lobar pneumonia, unspecified organism; D61.818 Other pancytopenia; Z82.49 Family history of ischemic heart disease and other diseases of the circulatory system; K52.9 Noninfective gastroenteritis and colitis, unspecified; E86.0 Dehydration; M94.0 Chondrocostal junction syndrome [Tietze]
CPT/HCPCS: 36415; 71045; 71250; 80048; 80053; 81001; 85007; 85025; 86140; 87040; 87045; 87400; 87536; 87806; 94760; 96361; 96365; 96375; C9113; J0456; J0696; J1956; J2270; J2405; J2765; J7030; J7050

== ENCOUNTER 2017-09-16 23:39 | Inpatient (IN) | payer OTHER ==
--- NOTE | 2017-09-17 00:08 | Emergency Department Report ---
- General Stated Complaint: DIFFICULTY IN BREATHING Time Seen by Provider: 09/17/17 00:05 - History of Present Illness Initial Comments: Patient is a 41-year-old male who was admitted several days ago for left lower lobe pneumonia who was sent home yesterday from hospital but states his wrist or status again worse. Patient states he is having increased shortness of breath fever. Patient states he did feel as though he was able to make it home. Patient denies nausea vomiting diarrhea chest pain. MD Complaint: fever, cough Severity scale (0 -10): 3 Quality: aching Consistency: constant (with cough) Associated Symptoms: fever, chills, myalgias, cough, shortness of breath. denies: headache, nasal congestion, sore throat, abdominal pain, nausea, vomiting, diarrhea - Related Data Previous Rx's Medication Instructions Recorded Last Taken Type Levofloxacin [Levaquin] 750 mg PO QDAY #4 tablet 09/16/17 Unknown Rx Oseltamivir [Tamiflu] 75 mg PO BID #4 capsule 09/16/17 Unknown Rx Temazepam [Restoril] 15 mg PO QHS PRN #7 capsule 09/16/17 Unknown Rx Allergies Allergy/AdvReac Type Severity Reaction Status Date / Time No Known Allergies Allergy Verified 05/15/17 17:01 ED Review of Systems ROS: Stated complaint: DIFFICULTY IN BREATHING Other details as noted in HPI Comment: All other systems reviewed and negative ED Past Medical Hx - Past Medical History Hx HIV: No - Social History Smoking Status: Former Smoker - Medications Home Medications: Home Medications Medication Instructions Recorded Confirmed Last Taken Type Levofloxacin [Levaquin] 750 mg PO QDAY #4 tablet 09/16/17 Unknown Rx Oseltamivir [Tamiflu] 75 mg PO BID #4 capsule 09/16/17 Unknown Rx Temazepam [Restoril] 15 mg PO QHS PRN #7 capsule 09/16/17 Unknown Rx ED Physical Exam - General General appearance: alert, in distress (ill appearing) - Head Head exam: Present: atraumatic, normocephalic - Eye Eye exam: Present: normal appearance - ENT ENT exam: Present: mucous membranes dry - Neck Neck exam: Present: normal inspection - Respiratory Respiratory exam: Present: respiratory distress, wheezes, rhonchi - Cardiovascular Cardiovascular Exam: Present: regular rate, normal rhythm. Absent: systolic murmur, diastolic murmur, rubs, gallop - GI/Abdominal GI/Abdominal exam: Present: soft, normal bowel sounds. Absent: distended, tenderness, guarding, rebound - Rectal Rectal exam: Present: deferred - Extremities Exam Extremities exam: Present: normal inspection - Back Exam Back exam: Present: normal inspection - Neurological Exam Neurological exam: Present: alert, oriented X3 - Psychiatric Psychiatric exam: Present: normal affect, normal mood - Skin Skin exam: Present: warm, dry, intact, normal color. Absent: rash ED Course Vital Signs 09/17/17 09/17/17 09/17/17 00:16 00:23 00:30 Temperature 100.0 F H Pulse Rate 141 H Pulse Rate [ Bilateral Throughout] Respiratory 12 37 H Rate Respiratory Rate [Bilateral Throughout] Blood Pressure O2 Sat by Pulse Oximetry 09/17/17 09/17/17 09/17/17 00:46 00:59 01:00 Temperature Pulse Rate 139 H 154 H Pulse Rate [ Bilateral Throughout] Respiratory 38 H 24 36 H Rate Respiratory Rate [Bilateral Throughout] Blood Pressure 124/76 124/76 O2 Sat by Pulse 100 100 Oximetry 09/17/17 09/17/17 09/17/17 01:15 01:30 01:46 Temperature Pulse Rate 151 H 141 H 153 H Pulse Rate [ Bilateral Throughout] Respiratory 32 H 33 H 32 H Rate Respiratory Rate [Bilateral Throughout] Blood Pressure 129/82 131/83 117/82 O2 Sat by Pulse 99 100 Oximetry 09/17/17 09/17/17 09/17/17 02:00 02:15 02:30 Temperature Pulse Rate 174 H 174 H 173 H Pulse Rate [ Bilateral Throughout] Respiratory 34 H 28 H 23 Rate Respiratory Rate [Bilateral Throughout] Blood Pressure 117/82 121/91 121/91 O2 Sat by Pulse 100 97 Oximetry 09/17/17 09/17/17 09/17/17 02:45 03:00 03:15 Temperature Pulse Rate 110 H 111 H 115 H Pulse Rate [ Bilateral Throughout] Respiratory 30 H 34 H 25 H Rate Respiratory Rate [Bilateral Throughout] Blood Pressure 120/89 118/88 127/85 O2 Sat by Pulse 99 99 Oximetry 09/17/17 09/17/17 03:30 03:40 Temperature Pulse Rate 113 H Pulse Rate [ 114 H Bilateral Throughout] Respiratory 37 H Rate Respiratory 20 Rate [Bilateral Throughout] Blood Pressure 119/83 O2 Sat by Pulse Oximetry - Reevaluation(s) Reevaluation #1: 09/17/17 02:13 Patient was on a nonrebreather x-ray reviewed by me shows left-sided infiltrate is worsened. Patient is having persistent tachycardia and nervousness. Believe patient needs to be on BiPAP at this time about petals order been around a nebulizer treatment through the BiPAP to this will improve the wheezing. Patient is on sepsis protocol. ED Medical Decision Making - Lab Data Result diagrams: 09/17/17 00:28 09/17/17 00:28 - EKG Data Interpretation: other (episodes of a cardiac cath tech showed a sinus tachycardia 150 with several episodes of V. tach. The patient had no chest pain or syncope during these episodes.) - Radiology Data Radiology results: report reviewed, image reviewed worsening LLL infiltrate - Medical Decision Making Patient is a 41-year-old male who is presenting with worsening shortness of breath has been discharged home. Patient has a recent history of pneumonia. Patient's was in respiratory distress and was placed on BiPAP given a nebulizer treatment through the BiPAP fluids. Patient's heart rate has decreased at the time of admission 5 AM. Heart rate 110. Patient does meet sepsis criteria. Patient will be admitted to [facility] at this time Critical Care Time: Yes Critical care time in (mins) excluding proc time.: 30 Critical care attestation.: If time is entered above; I have spent that time in minutes in the direct care of this critically ill patient, excluding procedure time. ED Disposition Clinical Impression: Acute respiratory distress Pneumonia Qualifiers: Pneumonia type: due to unspecified organism Laterality: left Lung location: lower lobe of lung Qualified Code(s): J18.1 - Lobar pneumonia, unspecified organism Disposition: 09 OP ADMIT IP TO THIS HOSP Is pt being admited?: Yes Does the pt Need Aspirin: No Condition: Serious Instructions: Bacterial Pneumonia (ED)
[2017-09-17] MEDS ORDERED: NACL 0.9% 1000 ML 1,000 ML IV ONE ×2 (00:09→02:15)
[2017-09-17] MEDS ORDERED: LEVAQUIN 750MG/150ML 750 MG/150 ML BAG IV ONE (00:09)
--- NOTE | 2017-09-17 01:23 | XRay Report ---
FINAL REPORT PROCEDURE: XR CHEST 1V AP TECHNIQUE: Chest radiograph anteroposterior view. CPT 77574 HISTORY: Fever/Sepsis COMPARISON: No prior studies are available for comparison. FINDINGS: Heart: Normal. Mediastinum/Vessels: Normal. Lungs/Pleural space: There are left perihilar and lower lobe infiltrates which have increased since the prior study. The right lung is clear and expanded. There is a left pleural effusion. There is no pneumothorax.. Bony thorax: No acute osseous abnormality. Life support devices: None. IMPRESSION: The heart size is normal.. There are left perihilar and lower lobe infiltrates which have increased since the prior study. The right lung is clear and expanded. There is a left pleural effusion. There is no pneumothorax..
[2017-09-17 01:36] LABS: BUN/Creatinine Ratio 13; Blood Urea Nitrogen 12 mg/dL (9-20); Calcium 8.3 mg/dL (8.4-10.2); Hemolysis Index 7
[2017-09-17] MEDS ORDERED: KCL 10MEQ/100ML 10 MEQ/100 ML BAG IV ONE (02:05)
[2017-09-17] MEDS ORDERED: XANAX PO ONE (02:14)
[2017-09-17] MEDS ORDERED: ATROVENT IH ONE (02:14)
[2017-09-17] MEDS ORDERED: PROVENTIL IH ONE (02:14)
[2017-09-17 02:16] LABS: Hematocrit 44.6 % (35.5-45.6); Hemoglobin 14.9 gm/dl (11.8-15.2); Mean Corpuscular HGB Conc 33 % (32-34); Mean Corpuscular Hemoglobin 31 pg (28-32); Mean Corpuscular Volume 94 fl (84-94); Platelet Count 153 K/mm3 (140-440); Red Blood Count 4.74 M/mm3 (3.65-5.03); Red Cell Distribution Width 13.5 % (13.2-15.2)
[2017-09-17 04:05] LABS: Band Neutrophils # (Manual) 5.2 K/mm3; Basophils % (Manual) 0 % (0.0-1.8); Eosinophils % (Manual) 0 % (0.0-4.3); Total Cells Counted 100
[2017-09-17 04:06] LABS: Anisocytosis 1+; Hypochromasia 1+
[2017-09-17] MEDS: HEPARIN SUB-Q SCH ×3 (06:35→22:57)
[2017-09-17] MEDS: NACL 0.9% 1000 ML 1,000 ML IV SCH ×3 (06:36→22:56)
--- NOTE | 2017-09-17 07:26 | History and Physical Report ---
History of Present Illness Date of examination: 09/17/17 Date of admission: 09/17/17 05:07 Chief complaint: Worsening shortness of breath and fever since yesterday History of present illness: Very pleasant 41-year-old -British male patient was admitted on 2017 with fever , flulike symptoms , community-acquired pneumonia , received antibiotics and Tamiflu , evaluated by ID and was discharged on 09/16/2017 on oral Levaquin and Tamiflu However patient developed worsening shortness of breath and fever and return to emergency room In the ER patient had sinus tachycardia with the brief episodes of nonsustained VT, patient was placed on BiPAP saturating well Today he feels slightly better Denies chest pain, mild shortness of breath and cough nonproductive Denies nausea vomiting or abdominal pain Chest x-ray revealed worsening pneumonia Past History Past Medical History: other (recent pneumonia, flulike symptoms) Past Surgical History: No surgical history Social history: smoking (quit smoking), full code. denies: alcohol abuse, IV drug use Family history: hypertension Medications and Allergies Allergies Allergy/AdvReac Type Severity Reaction Status Date / Time No Known Allergies Allergy Verified 05/15/17 17:01 Home Medications Medication Instructions Recorded Confirmed Last Taken Type Levofloxacin [Levaquin] 750 mg PO QDAY #4 tablet 09/16/17 09/17/17 Unknown Rx Oseltamivir [Tamiflu] 75 mg PO BID #4 capsule 09/16/17 09/17/17 09/16/17 Rx Temazepam [Restoril] 15 mg PO QHS PRN #7 capsule 09/16/17 09/17/17 Unknown Rx Active Meds: Active Medications Heparin Sodium (Porcine) (Heparin) 5,000 unit SUB-Q Q8HR [facility] Last Admin: 09/17/17 06:35 Dose: 5,000 unit Sodium Chloride (Nacl 0.9% 1000 Ml) 1,000 mls @ 125 mls/hr IV DIRECT [facility] Last Admin: 09/17/17 06:36 Dose: 125 mls/hr Review of Systems Constitutional: fever, no weight loss, no weight gain Ears, nose, mouth and throat: no nasal congestion, no nasal discharge Cardiovascular: palpitations, shortness of breath, no chest pain Respiratory: cough, shortness of breath Gastrointestinal: no abdominal pain, no nausea, no vomiting Genitourinary Male: no dysuria, no hematuria Integumentary: no rash, no lesions Neurological: no parathesias, no numbness, no tingling Psychiatric: no anxiety, no depression Endocrine: no cold intolerance, no heat intolerance Hematologic/Lymphatic: no easy bruising, no easy bleeding Allergic/Immunologic: no urticaria, no allergic rhinitis Exam - Constitutional Vitals: Temp Pulse Resp BP Pulse Ox 100.0 F H 101 H 37 H 121/86 98 09/17/17 00:16 09/17/17 06:30 09/17/17 06:30 09/17/17 06:30 09/17/17 05:45 General appearance: Present: mild distress, well-nourished, other (on BiPAP) - EENT Eyes: Present: PERRL, EOM intact - Neck Neck: Present: supple, normal ROM - Respiratory Respiratory effort: normal Respiratory: bilateral: diminished, rhonchi, negative: rales, wheezing - Cardiovascular Rhythm: regular Heart Sounds: Present: S1 & S2 (tachycardia) - Extremities Extremities: no ischemia, No edema - Abdominal General gastrointestinal: Present: soft, non-tender, non-distended, normal bowel sounds - Integumentary Integumentary: Present: clear, warm - Musculoskeletal Musculoskeletal: strength equal bilaterally - Psychiatric Psychiatric: appropriate mood/affect, cooperative - Neurologic Neurologic: CNII-XII intact, moves all extremities Results - Labs CBC & Chem 7: 09/17/17 00:28 09/17/17 00:28 Labs: Abnormal lab results 09/17/17 09/17/17 Range/Units 00:28 00:28 WBC 12.0 H (4.5-11.0) K/mm3 Lymphocytes % (Manual) 6.0 L (13.4-35.0) % Monocytes % (Manual) 10.0 H (0.0-7.3) % Lymphocytes # (Manual) 0.7 L (1.2-5.4) K/mm3 Monocytes # (Manual) 1.2 H (0.0-0.8) K/mm3 Potassium 3.0 L (3.6-5.0) mmol/L Glucose 160 H (75-100) mg/dL Calcium 8.3 L D (8.4-10.2) mg/dL Assessment and Plan --Acute hypoxic respiratory failure requiring BiPAP Probably secondary to worsening pneumonia, oxygen titrated to O2 sats more than 90% Wean BiPAP to Ventimask, nebulizers as needed --worsening community-acquired pneumonia/post influenza pneumonia IV antibiotics, follow cultures, supportive care, pulmonary and ID evaluation if no improvement --Sinus tachycardia; probably secondary to fever and underlying sepsis Closely monitor, consider echocardiogram and cardiology evaluation if needed --Possible influenza; Influenza A and B are negative, however ID recommended Tamiflu for total 5 days , day 5 today Respiratory isolation --Hypokalemia; replace per protocol and monitor levels --DVT prophylaxis; with heparin Closely monitor the patient and adjust the management as needed If patient is tolerating Ventimask, may downgrade to telemetry plan of care discussed with the patient and his nurse
[2017-09-17] MEDS ORDERED: XANAX PO PRN (08:59)
[2017-09-17] MEDS: PEPCID PO SCH ×2 (10:01→22:58)
[2017-09-17] MEDS: TAMIFLU PO SCH ×2 (10:01→22:59)
[2017-09-17] MEDS ORDERED: VANCOMYCIN/NS 1 GM/250 ML 1 GM/250 ML BAG IV SCH (16:00)
[2017-09-17] MEDS: MORPHINE IV PRN (16:20)
[2017-09-17] MEDS: MOTRIN PO PRN (16:46)
[2017-09-17] MEDS: VANCOMYCIN 1,500 MG in NACL 0.9% 500 ML 500 ML IV SCH (16:47)
[2017-09-17] MEDS: RESTORIL PO PRN (22:59)
[2017-09-17] MEDS: ZOSYN/NS 4.5GM/100ML 4.5 GM/100 ML VIAL IV SCH (22:59)
[2017-09-18] MEDS: VANCOMYCIN 1,500 MG in NACL 0.9% 500 ML 500 ML IV SCH ×2 (03:30→16:03)
[2017-09-18] MEDS: HEPARIN SUB-Q SCH ×3 (05:37→22:17)
[2017-09-18] MEDS: ZOSYN/NS 4.5GM/100ML 4.5 GM/100 ML VIAL IV SCH ×3 (05:38→22:17)
[2017-09-18] MEDS ORDERED: LEVAQUIN 750MG/150ML 750 MG/150 ML BAG IV SCH (10:00)
[2017-09-18] MEDS: PEPCID PO SCH ×2 (10:37→22:17)
[2017-09-18] MEDS: TAMIFLU PO SCH ×2 (10:37→22:17)
[2017-09-18] MEDS: NACL 0.9% 1000 ML 1,000 ML IV SCH (12:42)
[2017-09-18] MEDS: TYLENOL PO PRN (14:16)
--- NOTE | 2017-09-18 17:05 | Progress Note ---
Assessment and Plan Assessment and plan: --Acute hypoxic respiratory failure requiring BiPAP Probably secondary to worsening pneumonia, oxygen titrated to O2 sats more than 90% Wean BiPAP to Ventimask, nebulizers as needed --worsening community-acquired pneumonia/post influenza pneumonia IV Vanco and Zosyn , follow cultures, , pulmonary and ID evaluation --Sepsis; secondary to pneumonia, continue current management --Possible influenza; Influenza A and B are negative, however ID recommended Tamiflu during last admission, continue Tamiflu Total 7 days, Respiratory isolation --Hypokalemia; replace per protocol and monitor levels --DVT prophylaxis; with heparin Closely monitor the patient and adjust the management as needed plan of care discussed with the patient and his nurse History Interval history: Patient seen and examined medical records reviewed Admitted with worsening pneumonia, receiving Vanco and Zosyn as well as Tamiflu The patient feels slightly better, however he remains febrile MAXIMUM TEMPERATURE 102 In mild distress Hospitalist Physical - Constitutional Vitals: Temp Pulse Resp BP Pulse Ox 100.3 F H 80 20 134/70 91 09/18/17 16:08 09/18/17 16:08 09/18/17 16:08 09/18/17 16:08 09/18/17 16:08 General appearance: Present: mild distress, well-nourished, other (on Ventimask) - EENT Eyes: Present: PERRL, EOM intact - Neck Neck: Present: supple, normal ROM - Respiratory Respiratory effort: normal Respiratory: bilateral: diminished, rhonchi, negative: rales, wheezing - Cardiovascular Rhythm: regular Heart Sounds: Present: S1 & S2 - Extremities Extremities: no ischemia, No edema - Abdominal General gastrointestinal: soft, non-tender, non-distended, normal bowel sounds - Integumentary Integumentary: Present: clear, warm - Psychiatric Psychiatric: appropriate mood/affect, cooperative - Neurologic Neurologic: CNII-XII intact, moves all extremities Results - Labs CBC & Chem 7: 09/17/17 00:28 09/17/17 00:28 Labs: Laboratory Last Values WBC 12.0 K/mm3 (4.5-11.0) H 09/17/17 00:28 RBC 4.74 M/mm3 (3.65-5.03) 09/17/17 00:28 Hgb 14.9 gm/dl (11.8-15.2) 09/17/17:28 Hct 44.6 % (35.5-45.6) 09/17/17: MCV 94 fl (84-94) 09/17/17: MCH 31 pg (28-32) 09/17/17: MCHC 33 % (32-34) 09/17/17 00: RDW 13.5 % (13.2-15.2) 09/17/17: Plt Count 153 K/mm3 (140-440) 09/17/17 00: Add Manual Diff Complete 09/17/17: Total Counted 100 09/17/17: Seg Neuts % (Manual) 41.0 % (40.0-70.0) 09/17/17: Band Neutrophils % 43.0 % 09/17/17:28 Lymphocytes % (Manual) 6.0 % (13.4-35.0) L 09/17/17 00: Reactive Lymphs % (Man) 0 % 09/17/17 00: Monocytes % (Manual) 10.0 % (0.0-7.3) H 09/17/17 00:28 Eosinophils % (Manual) 0 % (0.0-4.3) 09/17/17 00: Basophils % (Manual) 0 % (0.0-1.8) 09/17/17 00:28 Metamyelocytes % 0 % 09/17/17 00: Myelocytes % 0 % 09/17/17 00:28 Promyelocytes % 0 % 09/17/17 00: Blast Cells % 0 % 09/17/17 00: Nucleated RBC % Not Reportable 09/17/17 00:28 Seg Neutrophils # Man 4.9 K/mm3 (1.8-7.7) 09/17/17 00:28 Band Neutrophils # 5.2 K/mm3 09/17/17 00:28 Lymphocytes # (Manual) 0.7 K/mm3 (1.2-5.4) L 09/17/17 00:28 Abs React Lymphs (Man) 0.0 K/mm3 09/17/17 00:28 Monocytes # (Manual) 1.2 K/mm3 (0.0-0.8) H 01/20/18 00:28 Eosinophils # (Manual) 0.0 K/mm3 (0.0-0.4) 09/17/17 00:28 Basophils # (Manual) 0.0 K/mm3 (0.0-0.1) 09/17/17 00:28 Metamyelocytes # 0.0 K/mm3 09/17/17 00:28 Myelocytes # 0.0 K/mm3 09/17/17 00:28 Promyelocytes # 0.0 K/mm3 09/17/17 00:28 Blast Cells # 0.0 K/mm3 09/17/17 00:28 WBC Morphology Not Reportable 09/17/17 00:28 Hypersegmented Neuts Not Reportable 09/17/17 00:28 Hyposegmented Neuts Not Reportable 09/17/17 00:28 Hypogranular Neuts Not Reportable 09/17/17 00:28 Smudge Cells Not Reportable 09/17/17 00:28 Toxic Granulation Not Reportable 09/17/17 00:28 Toxic Vacuolation Not Reportable 09/17/17 00:28 Dohle Bodies Not Reportable 09/17/17 00:28 Pelger-Huet Anomaly Not Reportable 09/17/17 00:28 Rufino Rods Not Reportable 09/17/17 00:28 Platelet Estimate Appears normal 09/17/17 00:28 Clumped Platelets Not Reportable 09/17/17 00:28 Plt Clumps, EDTA Not Reportable 09/17/17 00:28 Large Platelets Not Reportable 09/17/17 00:28 Giant Platelets Not Reportable 09/17/17 00:28 Platelet Satelliting Not Reportable 09/17/17 00:28 Plt Morphology Comment Not Reportable 09/17/17 00:28 RBC Morphology Not Reportable 09/17/17 00:28 Dimorphic RBCs Not Reportable 09/17/17 00:28 Polychromasia Not Reportable 09/17/17 00:28 Hypochromasia 1+ 09/17/17 00:28 Poikilocytosis Not Reportable 09/17/17 00:28 Anisocytosis 1+ 09/17/17 00:28 Microcytosis Not Reportable 09/17/17 00:28 Macrocytosis Not Reportable 09/17/17 00:28 Spherocytes Not Reportable 09/17/17 00:28 Pappenheimer Bodies Not Reportable 09/17/17 00:28 Sickle Cells Not Reportable 09/17/17 00:28 Target Cells Not Reportable 09/17/17 00:28 Tear Drop Cells Not Reportable 09/17/17 00:28 Ovalocytes Not Reportable 09/17/17 00:28 Helmet Cells Not Reportable 09/17/17 00:28 [place] Bodies Not Reportable 09/17/17 00:28 [place] Rings Not Reportable 09/17/17 00:28 Tiera Cells Not Reportable 09/17/17 00:28 Bite Cells Not Reportable 09/17/17 00:28 Crenated Cell Not Reportable 09/17/17 00:28 Elliptocytes Not Reportable 09/17/17 00:28 Acanthocytes (Spur) Not Reportable 09/17/17 00:28 Rouleaux Not Reportable 09/17/17 00:28 Hemoglobin C Crystals Not Reportable 09/17/17 00:28 Schistocytes Not Reportable 09/17/17 00:28 Malaria parasites Not Reportable 09/17/17 00:28 Flip Bodies Not Reportable 09/17/17 00:28 Hem Pathologist Commnt No 09/17/17 00:28 Sodium 139 mmol/L (137-145) 09/17/17 00:28 Potassium 3.0 mmol/L (3.6-5.0) L 09/17/17 00:28 Chloride 99.1 mmol/L (98-107) 09/17/17 00:28 Carbon Dioxide 27 mmol/L (22-30) 09/17/17 00:28 Anion Gap 16 mmol/L 09/17/17 00:28 BUN 12 mg/dL (9-20) 09/17/17 00:28 Creatinine 0.9 mg/dL (0.8-1.5) 09/17/17 00:28 Estimated GFR > 60 ml/min 09/17/17 00:28 BUN/Creatinine Ratio 13 % 09/17/17 00:28 Glucose 160 mg/dL (75-100) H 09/17/17 00:28 Lactic Acid 1.30 mmol/L (0.7-2.0) 09/17/17 03:09 Calcium 8.3 mg/dL (8.4-10.2) L D 09/17/17 00:28
[2017-09-18] MEDS: RESTORIL PO PRN (23:31)
[2017-09-19] MEDS: NACL 0.9% 1000 ML 1,000 ML IV SCH ×2 (04:25→21:28)
[2017-09-19] MEDS: VANCOMYCIN 1,500 MG in NACL 0.9% 500 ML 500 ML IV SCH ×2 (04:26→16:48)
[2017-09-19] MEDS: ZOSYN/NS 4.5GM/100ML 4.5 GM/100 ML VIAL IV SCH ×3 (06:27→21:32)
[2017-09-19] MEDS: HEPARIN SUB-Q SCH ×3 (06:28→21:34)
[2017-09-19 07:43] LABS: Basophils % (Auto) 0.1 % (0.0-1.8); Hematocrit 37.8 % (35.5-45.6); Lymphocytes # (Auto) 1.2 K/mm3 (1.2-5.4); Lymphocytes % (Auto) 8.2 % (13.4-35.0); Mean Corpuscular HGB Conc 34 % (32-34); Mean Corpuscular Hemoglobin 32 pg (28-32); Mean Corpuscular Volume 92 fl (84-94); Monocytes % (Auto) 6.6 % (0.0-7.3); Platelet Count 146 K/mm3 (140-440); Red Blood Count 4.09 M/mm3 (3.65-5.03); Red Cell Distribution Width 13.1 % (13.2-15.2)
[2017-09-19 07:57] LABS: BUN/Creatinine Ratio 13; Blood Urea Nitrogen 12 mg/dL (9-20); Calcium 7.8 mg/dL (8.4-10.2); Hemolysis Index 1
--- NOTE | 2017-09-19 08:18 | Progress Note ---
Assessment and Plan Assessment and plan: --Acute hypoxic respiratory failure requiring BiPAP Probably secondary to worsening pneumonia, oxygen titrated to O2 sats more than 90% Wean BiPAP to Ventimask, nebulizers as needed --worsening pneumonia/post influenza pneumonia vs HCAP from recent hospital admission Follow CT chest, continue Vanco Zosyn, supportive care pulmonary and ID following --Sepsis; secondary to pneumonia, continue current management --Possible influenza; Influenza A and B are negative, however ID recommended Tamiflu during last admission, continue Tamiflu --Hypokalemia; replace per protocol and monitor levels --DVT prophylaxis; with heparin Closely monitor the patient and adjust the management as needed Consults and recommendations noted and appreciated Plan of care discussed with the patient and his nurse History Interval history: Patient seen and evaluated medical records reviewed Has worsening pneumonia, patient looks chronically ill Intermittent fevers Alert awake oriented 3 not in acute distress Hospitalist Physical - Constitutional Vitals: Temp Pulse Resp BP Pulse Ox 98.0 F 104 H 18 135/77 95 09/19/17 04:33 09/19/17 04:33 09/19/17 04:33 09/19/17 04:33 09/19/17 04:33 General appearance: Present: mild distress, well-nourished, other (on Ventimask) - EENT Eyes: Present: PERRL, EOM intact - Neck Neck: Present: supple, normal ROM - Respiratory Respiratory effort: normal Respiratory: bilateral: diminished, negative: rales, rhonchi, wheezing - Cardiovascular Rhythm: regular Heart Sounds: Present: S1 & S2 - Extremities Extremities: no ischemia, No edema Peripheral Pulses: within normal limits - Abdominal General gastrointestinal: soft, non-tender, non-distended, normal bowel sounds - Integumentary Integumentary: Present: clear, warm - Psychiatric Psychiatric: appropriate mood/affect, cooperative - Neurologic Neurologic: CNII-XII intact, moves all extremities Results - Labs CBC & Chem 7: 09/19/17 07:00 09/19/17 07:00 Labs: Laboratory Last Values WBC 15.1 K/mm3 (4.5-11.0) H 09/19/17 07:00 RBC 4.09 M/mm3 (3.65-5.03) 09/19/17 07:00 Hgb 13.0 gm/dl (11.8-15.2) 09/19/17 07:00 Hct 37.8 % (35.5-45.6) D 09/19/17 07:00 MCV 92 fl (84-94) 09/19/17 07:00 MCH 32 pg (28-32) 09/19/17 07:00 MCHC 34 % (32-34) 09/19/17 07:00 RDW 13.1 % (13.2-15.2) L 09/19/17 07:00 Plt Count 146 K/mm3 (140-440) 09/19/17 07:00 Lymph % (Auto) 8.2 % (13.4-35.0) L 09/19/17 07:00 [place] % (Auto) 6.6 % (0.0-7.3) 09/19/17 07:00 Eos % (Auto) 0.0 % (0.0-4.3) 09/19/17 07:00 Baso % (Auto) 0.1 % (0.0-1.8) 09/19/17 07:00 Lymph # 1.2 K/mm3 (1.2-5.4) 09/19/17 07:00 [place] # 1.0 K/mm3 (0.0-0.8) H 09/19/17 07:00 Eos # 0.0 K/mm3 (0.0-0.4) 09/19/17 07:00 Baso # 0.0 K/mm3 (0.0-0.1) 09/19/17 07:00 Add Manual Diff Complete 09/17/17 00:28 Total Counted 100 09/17/17 00:28 Seg Neutrophils % 85.1 % (40.0-70.0) H 09/19/17 07:00 Seg Neuts % (Manual) 41.0 % (40.0-70.0) 09/17/17 00:28 Band Neutrophils % 43.0 % 09/17/17 00:28 Lymphocytes % (Manual) 6.0 % (13.4-35.0) L 09/17/17 00:28 Reactive Lymphs % (Man) 0 % 09/17/17 00:28 Monocytes % (Manual) 10.0 % (0.0-7.3) H 09/17/17 00:28 Eosinophils % (Manual) 0 % (0.0-4.3) 09/17/17 00:28 Basophils % (Manual) 0 % (0.0-1.8) 09/17/17 00:28 Metamyelocytes % 0 % 09/17/17 00:28 Myelocytes % 0 % 09/17/17 00:28 Promyelocytes % 0 % 09/17/17 00:28 Blast Cells % 0 % 09/17/17 00:28 Nucleated RBC % Not Reportable 09/17/17 00:28 Seg Neutrophils # 12.9 K/mm3 (1.8-7.7) H 09/19/17 07:00 Seg Neutrophils # Man 4.9 K/mm3 (1.8-7.7) 09/17/17 00:28 Band Neutrophils # 5.2 K/mm3 09/17/17 00:28 Lymphocytes # (Manual) 0.7 K/mm3 (1.2-5.4) L 09/17/17 00:28 Abs React Lymphs (Man) 0.0 K/mm3 09/17/17 00:28 Monocytes # (Manual) 1.2 K/mm3 (0.0-0.8) H 09/17/17 00:28 Eosinophils # (Manual) 0.0 K/mm3 (0.0-0.4) 09/17/17 00:28 Basophils # (Manual) 0.0 K/mm3 (0.0-0.1) 09/17/17 00:28 Metamyelocytes # 0.0 K/mm3 09/17/17 00:28 Myelocytes # 0.0 K/mm3 09/17/17 00:28 Promyelocytes # 0.0 K/mm3 09/17/17 00:28 Blast Cells # 0.0 K/mm3 09/17/17 00:28 WBC Morphology Not Reportable 09/17/17 00:28 Hypersegmented Neuts Not Reportable 09/17/17 00:28 Hyposegmented Neuts Not Reportable 09/17/17 00:28 Hypogranular Neuts Not Reportable 09/17/17 00:28 Smudge Cells Not Reportable 09/17/17 00:28 Toxic Granulation Not Reportable 09/17/17 00:28 Toxic Vacuolation Not Reportable 09/17/17 00:28 Dohle Bodies Not Reportable 09/17/17 00:28 Pelger-Huet Anomaly Not Reportable 09/17/17 00:28 Rufino Rods Not Reportable 09/17/17 00:28 Platelet Estimate Appears normal 09/17/17 00:28 Clumped Platelets Not Reportable 09/17/17 00:28 Plt Clumps, EDTA Not Reportable 09/17/17 00:28 Large Platelets Not Reportable 09/17/17 00:28 Giant Platelets Not Reportable 09/17/17 00:28 Platelet Satelliting Not Reportable 09/17/17 00:28 Plt Morphology Comment Not Reportable 09/17/17 00:28 RBC Morphology Not Reportable 09/17/17 00:28 Dimorphic RBCs Not Reportable 09/17/17 00:28 Polychromasia Not Reportable 09/17/17 00:28 Hypochromasia 1+ 09/17/17 00:28 Poikilocytosis Not Reportable 09/17/17 00:28 Anisocytosis 1+ 09/17/17 00:28 Microcytosis Not Reportable 09/17/17 00:28 Macrocytosis Not Reportable 09/17/17 00:28 Spherocytes Not Reportable 09/17/17 00:28 Pappenheimer Bodies Not Reportable 09/17/17 00:28 Sickle Cells Not Reportable 09/17/17 00:28 Target Cells Not Reportable 09/17/17 00:28 Tear Drop Cells Not Reportable 09/17/17 00:28 Ovalocytes Not Reportable 09/17/17 00:28 Helmet Cells Not Reportable 09/17/17 00:28 [place]es Bodies Not Reportable 09/17/17 00:28 [place] Rings Not Reportable 09/17/17 00:28 [place] Cells Not Reportable 09/17/17 00:28 Bite Cells Not Reportable 09/17/17 00:28 Crenated Cell Not Reportable 09/17/17 00:28 Elliptocytes Not Reportable 09/17/17 00:28 Acanthocytes (Spur) Not Reportable 09/17/17 00:28 Rouleaux Not Reportable 09/17/17 00:28 Hemoglobin C Crystals Not Reportable 09/17/17 00:28 Schistocytes Not Reportable 09/17/17 00:28 Malaria parasites Not Reportable 09/17/17 00:28 Flip Bodies Not Reportable 09/17/17 00:28 Hem Pathologist Commnt No 09/17/17 00:28 Sodium 143 mmol/L (137-145) 09/19/17 07:00 Potassium 2.8 mmol/L (3.6-5.0) L* 09/19/17 07:00 Chloride 102.2 mmol/L (98-107) 09/19/17 07:00 Carbon Dioxide 28 mmol/L (22-30) 09/19/17 07:00 Anion Gap 16 mmol/L 09/19/17 07:00 BUN 12 mg/dL (9-20) 09/19/17 07:00 Creatinine 0.9 mg/dL (0.8-1.5) 09/19/17 07:00 Estimated GFR > 60 ml/min 09/19/17 07:00 BUN/Creatinine Ratio 13 % 09/19/17 07:00 Glucose 101 mg/dL (75-100) H 09/19/17 07:00 Lactic Acid 1.30 mmol/L (0.7-2.0) 09/17/17 03:09 Calcium 7.8 mg/dL (8.4-10.2) L 09/19/17 07:00
[2017-09-19] MEDS ORDERED: K-DUR PO NR (09:00)
[2017-09-19] MEDS ORDERED: KCL 10MEQ/100ML 10 MEQ/100 ML BAG IV SCH (09:00)
[2017-09-19] MEDS ORDERED: KCL 30 MEQ in NACL 0.9% 500 ML 300 ML IV ONE (09:00)
[2017-09-19] MEDS: PEPCID PO SCH ×2 (09:34→21:34)
[2017-09-19] MEDS: TAMIFLU PO SCH ×2 (09:34→21:34)
--- NOTE | 2017-09-19 11:52 | Cat Scan Report ---
CT CHEST WITH CONTRAST: HISTORY: Pneumonia, worsening shortness of breath. COMPARISON: CT chest dated 09/14/17. TECHNIQUE: Helical CT in 1.25mm intervals following IV contrast. Sagittal and coronal reformatted images. FINDINGS: Thyroid gland: Normal. Tracheobronchial tree: Normal. Esophagus: Normal. Heart: Normal. Pericardium: Normal. Mediastinum: Mildly enlarged bilateral hilar and subcarinal lymph nodes are identified which probably represents reactive adenopathy. One of the largest lymph nodes in the subcarinal region measures 3.1 x 1.9 cm. Lung [place]: There are extensive bilateral lung infiltrates, left greater than right. There is diffuse involvement of the left lower lobe and extensive involvement of the lingula. Patchy consolidation in the medial right lower lobe is noted. Subtle acinar densities have developed in the right upper and middle lobes. Although the infiltrates are in similar distribution to the exam dated 09/14/17, there is increased consolidation and multiple areas of new cystic change since the previous exam. Pleural Spaces: Small left pleural effusion and trace right pleural effusion have developed. No findings to suggest empyema. No pneumothorax. Musculoskeletal: Normal. IMPRESSION: There are persistent bilateral lung infiltrates/left greater than right. The distribution of the infiltrates is essentially the same although there is increased consolidation and new areas of cystic change within the areas of consolidation. This suggests advancement of bilateral pneumonia. There are small pleural fluid collections bilaterally but no evidence for empyema. Probable reactive mediastinal adenopathy.
--- NOTE | 2017-09-19 12:51 | Consultation ---
History of Present Illness - Reason for Consult Consult date: 09/19/17 fever, persistant PNA Requesting physician: CARLYLE BILL - History of Present Illness Very pleasant 41-year-old -[place] male patient was admitted on 2017 with fever , flulike symptoms , community-acquired pneumonia , received antibiotics and Tamiflu , evaluated by ID and was discharged on 09/16/2017 on oral Levaquin and Tamiflu which he has completed. Return to ER with worsening shortness of breath and fever. In the emergency room, initial temperature was 100.0, heart rate 141, respirations 37, O2 sat 100, blood pressure 126/76, initial white count 12.0, Hemoglobin 14.9, Creatinine 0.9. Lactic acid 1.3 platelet 153. Microbiology: Blood cultures: 09/17 ngtd Urine cultures: Respiratory cultures: Current Antimicrobials: zosyn Vancomycin Previous Antimicrobials: Tamiflu Past History Past Medical History: other (recent pneumonia, flulike symptoms) Past Surgical History: No surgical history Social history: smoking (quit smoking), full code. denies: alcohol abuse, IV drug use Family history: hypertension Medications and Allergies Allergies Allergy/AdvReac Type Severity Reaction Status Date / Time No Known Allergies Allergy Verified 05/15/17 17:01 Home Medications Medication Instructions Recorded Confirmed Last Taken Type Levofloxacin [Levaquin] 750 mg PO QDAY #4 tablet 09/16/17 09/17/17 Unknown Rx Oseltamivir [Tamiflu] 75 mg PO BID #4 capsule 09/16/17 09/17/17 09/16/17 Rx Temazepam [Restoril] 15 mg PO QHS PRN #7 capsule 09/16/17 09/17/17 Unknown Rx Active Meds: Active Medications Acetaminophen (Tylenol) 650 mg PO Q4H PRN PRN Reason: Pain, Mild (1-3) Last Admin: 09/18/17 14:16 Dose: 650 mg Albuterol (Proventil) 2.5 mg IH Q4HRT PRN PRN Reason: Shortness Of Breath Alprazolam (Xanax) 0.25 mg PO Q8H PRN PRN Reason: Anxiety Famotidine (Pepcid) 20 mg PO BID [facility] Last Admin: 09/19/17 09:34 Dose: 20 mg Guaifenesin (Guaifenesin Dm Syrup) 10 ml PO Q4H PRN PRN Reason: Cough Heparin Sodium (Porcine) (Heparin) 5,000 unit SUB-Q Q8HR [facility] Last Admin: 09/19/17 06:28 Dose: 5,000 unit Sodium Chloride (Nacl 0.9% 1000 Ml) 1,000 mls @ 125 mls/hr IV DIRECT [facility] Last Admin: 09/19/17 04:25 Dose: 125 mls/hr Piperacillin Sod/Tazobactam Sod (Zosyn/Ns 4.5gm/100ml) 4.5 gm in 100 mls @ 200 mls/hr IV Q8HR [facility] PRN Reason: Protocol Last Admin: 09/19/17 06:27 Dose: 200 mls/hr Vancomycin HCl 1,500 mg/ (Sodium Chloride) 515 mls @ 333.333 mls/hr IV Q12H [facility] Last Admin: 09/19/17 04:26 Dose: 333.333 mls/hr Ibuprofen (Motrin) 600 mg PO TID PRN PRN Reason: Pain, Mild (1-3) Last Admin: 09/17/17 16:46 Dose: 600 mg Loratadine/Pseudoephedrine Sulfate (Claritin-D 24hr) 1 each PO Q24HR [facility] Morphine Sulfate (Morphine) 1 mg IV Q6H PRN PRN Reason: Pain, Moderate (4-6) Last Admin: 09/17/17 16:20 Dose: 1 mg Oseltamivir Phosphate (Tamiflu) 75 mg PO BID [facility] Stop: 09/21/17 22:01 Last Admin: 09/19/17 09:34 Dose: 75 mg Temazepam (Restoril) 15 mg PO QHS PRN PRN Reason: Sleep Last Admin: 09/18/17 23:31 Dose: 15 mg Physical Examination - Physical Exam Narrative exam: General appearance: SOB Eyes: anicteric sclerae, moist conjunctivae; no lid-lag; PERRLA HENT: Atraumatic; oropharynx clear with moist mucous membranes and no mucosal ulcerations/no oral thrush; normal hard and soft palate. Normal external ears. Neck: Trachea midline; supple, no thyromegaly or lymphadenopathy Lungs: scattered ronchi, SOB CV: RRR, no murmurs Abdomen: Soft, non-tender; +BS x 4 Extremities: contracted Skin: Normal temperature, turgor and texture; no rash, ulcers or subcutaneous nodules Psych: Appropriate affect, cooperative Neuro: alert and oriented x 3. Lines: No CVL / PIC - Constitutional Vitals: Vital Signs Temp Pulse Resp BP Pulse Ox 99.8 F H 105 H 22 135/79 93 09/19/17 08:45 09/19/17 08:45 09/19/17 08:45 09/19/17 08:45 09/19/17 08:45 Temperature -Last 24 Hours Temperature 99.8 F Temperature 98.0 F Temperature 97.8 F Temperature 98.2 F Temperature 100.3 F Results - Labs CBC & Chem 7: 09/20/17 06:00 09/19/17 07:00 Labs: Abnormal lab results 09/19/17 09/19/17 09/19/17 Range/Units 07:00 07:00 07:00 WBC 15.1 H (4.5-11.0) K/mm3 RDW 13.1 L (13.2-15.2) % Lymph % (Auto) 8.2 L (13.4-35.0) % [place] # 1.0 H (0.0-0.8) K/mm3 Seg Neutrophils % 85.1 H (40.0-70.0) % Seg Neutrophils # 12.9 H (1.8-7.7) K/mm3 Potassium 2.8 L* (3.6-5.0) mmol/L Glucose 101 H (75-100) mg/dL Calcium 7.8 L (8.4-10.2) mg/dL C-Reactive Protein 19.70 H (0.00-1.30) mg/dL Assessment and Plan Assessment: 1) Sepsis: Present on admission, manifested by fever, tachycardia, leukocytosis. Etiology most likely pneumonia 2) Pneumonia: CT chest showed bilateral lung infiltrate. HAP vs CAP 3) Acute hypoxia; respiratory failure Plan: -follow-up blood cultures, urine culture -obtain respiratory cultures, C-reactive protein (CRP) -obtain chest CT -continue zosyn and vancomycin -consider pulmonary evaluation for BAL Thank you Dr. Bates, will follow up Gurpreet Stein NP-Tab for Dr. Payton Lutz MD Infectious Diseases Specialist [facility], [place] ([facility]) M [phone] O [phone]
--- NOTE | 2017-09-19 15:21 | Consultation ---
History of Present Illness Consult date: 09/19/17 Requesting physician: CARLYLE BILL Reason for consult: pneumonia History of present illness: 41 yo doing well until ~ 09/08/17 when he developed flu-like symptoms. Multiple relatives living with him had confirmed flu at the time. He did not improve but worsened despite recent hospitalization where he receive Rocephin and Levaquin for 4 days. Now has increasing yellow and blood-tinged sputum, increased SOB, cough, fevers, generalized malaise. No chest pain. Currently on O2. Active Medications Acetaminophen (Tylenol) 650 mg PO Q4H PRN PRN Reason: Pain, Mild (1-3) Last Admin: 09/18/17 14:16 Dose: 650 mg Albuterol (Proventil) 2.5 mg IH Q4HRT PRN PRN Reason: Shortness Of Breath Alprazolam (Xanax) 0.25 mg PO Q8H PRN PRN Reason: Anxiety Famotidine (Pepcid) 20 mg PO BID [facility] Last Admin: 09/19/17 09:34 Dose: 20 mg Guaifenesin (Guaifenesin Dm Syrup) 10 ml PO Q4H PRN PRN Reason: Cough Heparin Sodium (Porcine) (Heparin) 5,000 unit SUB-Q Q8HR [facility] Last Admin: 09/19/17 06:28 Dose: 5,000 unit Sodium Chloride (Nacl 0.9% 1000 Ml) 1,000 mls @ 125 mls/hr IV DIRECT [facility] Last Admin: 09/19/17 04:25 Dose: 125 mls/hr Piperacillin Sod/Tazobactam Sod (Zosyn/Ns 4.5gm/100ml) 4.5 gm in 100 mls @ 200 mls/hr IV Q8HR [facility] PRN Reason: Protocol Last Admin: 09/19/17 14:17 Dose: 200 mls/hr Vancomycin HCl 1,500 mg/ (Sodium Chloride) 515 mls @ 333.333 mls/hr IV Q12H [facility] Last Admin: 09/19/17 04:26 Dose: 333.333 mls/hr Azithromycin 500 mg/ Sodium (Chloride) 250 mls @ 250 mls/hr IV Q24HR [facility] Ibuprofen (Motrin) 600 mg PO TID PRN PRN Reason: Pain, Mild (1-3) Last Admin: 09/17/17 16:46 Dose: 600 mg Loratadine/Pseudoephedrine Sulfate (Claritin-D 24hr) 1 each PO Q24HR [facility] Morphine Sulfate (Morphine) 1 mg IV Q6H PRN PRN Reason: Pain, Moderate (4-6) Last Admin: 09/17/17 16:20 Dose: 1 mg Oseltamivir Phosphate (Tamiflu) 75 mg PO BID [facility] Stop: 09/21/17 22:01 Last Admin: 09/19/17 09:34 Dose: 75 mg Temazepam (Restoril) 15 mg PO QHS PRN PRN Reason: Sleep Last Admin: 09/18/17 23:31 Dose: 15 mg Past History Past Medical History: other (recent pneumonia, flulike symptoms) Past Surgical History: No surgical history Social history: smoking (quit smoking), full code, other (drinks EtOH). denies : alcohol abuse, IV drug use Family history: hypertension Medications and Allergies Allergies Allergy/AdvReac Type Severity Reaction Status Date / Time No Known Allergies Allergy Verified 05/15/17 17:01 Home Medications Medication Instructions Recorded Confirmed Last Taken Type Levofloxacin [Levaquin] 750 mg PO QDAY #4 tablet 09/16/17 09/17/17 Unknown Rx Oseltamivir [Tamiflu] 75 mg PO BID #4 capsule 09/16/17 09/17/17 09/16/17 Rx Temazepam [Restoril] 15 mg PO QHS PRN #7 capsule 09/16/17 09/17/17 Unknown Rx Active Meds: Active Medications Acetaminophen (Tylenol) 650 mg PO Q4H PRN PRN Reason: Pain, Mild (1-3) Last Admin: 09/18/17 14:16 Dose: 650 mg Albuterol (Proventil) 2.5 mg IH Q4HRT PRN PRN Reason: Shortness Of Breath Alprazolam (Xanax) 0.25 mg PO Q8H PRN PRN Reason: Anxiety Famotidine (Pepcid) 20 mg PO BID [facility] Last Admin: 09/19/17 09:34 Dose: 20 mg Guaifenesin (Guaifenesin Dm Syrup) 10 ml PO Q4H PRN PRN Reason: Cough Heparin Sodium (Porcine) (Heparin) 5,000 unit SUB-Q Q8HR [facility] Last Admin: 09/19/17 06:28 Dose: 5,000 unit Sodium Chloride (Nacl 0.9% 1000 Ml) 1,000 mls @ 125 mls/hr IV DIRECT [facility] Last Admin: 09/19/17 04:25 Dose: 125 mls/hr Piperacillin Sod/Tazobactam Sod (Zosyn/Ns 4.5gm/100ml) 4.5 gm in 100 mls @ 200 mls/hr IV Q8HR [facility] PRN Reason: Protocol Last Admin: 09/19/17 14:17 Dose: 200 mls/hr Vancomycin HCl 1,500 mg/ (Sodium Chloride) 515 mls @ 333.333 mls/hr IV Q12H [facility] Last Admin: 09/19/17 04:26 Dose: 333.333 mls/hr Azithromycin 500 mg/ Sodium (Chloride) 250 mls @ 250 mls/hr IV Q24HR [facility] Ibuprofen (Motrin) 600 mg PO TID PRN PRN Reason: Pain, Mild (1-3) Last Admin: 09/17/17 16:46 Dose: 600 mg Loratadine/Pseudoephedrine Sulfate (Claritin-D 24hr) 1 each PO Q24HR [facility] Morphine Sulfate (Morphine) 1 mg IV Q6H PRN PRN Reason: Pain, Moderate (4-6) Last Admin: 09/17/17 16:20 Dose: 1 mg Oseltamivir Phosphate (Tamiflu) 75 mg PO BID [facility] Stop: 09/21/17 22:01 Last Admin: 09/19/17 09:34 Dose: 75 mg Temazepam (Restoril) 15 mg PO QHS PRN PRN Reason: Sleep Last Admin: 09/18/17 23:31 Dose: 15 mg Review of Systems All systems: negative Physical Examination Vital signs: Vital Signs Temp 100.0 F H 09/17/17 00:16 General appearance: no acute distress, alert Eyes: non-icteric Neck: supple Effort: mildly labored Ascultation: Left: rhonchi Cardiovascular: regular rate and rhythm (no mrg) Gastrointestinal: normoactive bowel sounds, soft, non-tender, non-distended Integumentary: normal Extremities: no cyanosis, no edema, pink and warm Musculoskeletal: no deformities normal mental status, non-focal exam, pupils equal and round, CN II-XII normal mood appropriate, affect normal Results - Laboratory Findings CBC and BMP: 09/19/17 07:00 09/19/17 07:00 Abnormal lab findings: Abnormal Labs 09/17/17 09/17/17 09/19/17 00:28 00:28 07:00 WBC 12.0 H 15.1 H RDW 13.1 L Lymph % (Auto) 8.2 L [place] # 1.0 H Seg Neutrophils % 85.1 H Lymphocytes % (Manual) 6.0 L Monocytes % (Manual) 10.0 H Seg Neutrophils # 12.9 H Lymphocytes # (Manual) 0.7 L Monocytes # (Manual) 1.2 H Potassium 3.0 L Glucose 160 H Calcium 8.3 L D C-Reactive Protein 09/19/17 09/19/17 07:00 07:00 WBC RDW Lymph % (Auto) [place] # Seg Neutrophils % Lymphocytes % (Manual) Monocytes % (Manual) Seg Neutrophils # Lymphocytes # (Manual) Monocytes # (Manual) Potassium 2.8 L* Glucose 101 H Calcium 7.8 L C-Reactive Protein 19.70 H - Diagnostic Findings Chest x-ray: report reviewed, image reviewed Assessment and Plan HIV PCR neg Imp: 1. Suspect post-influenza necrotizing pneumonia, probably staph versus HCAP from prior hospitalization 2. Acute respiratory failure, hypoxia 3. Sepsis 4. Chronic nicotine dependence, cigarettes 5. Hemoptysis Rec: 1. Agree with Vanco/Zosyn; would complete a course of atypical coverage as originally planned 2. Has completed 5 days of Tamiflu 3. Sputum culture and f/u blood cultures 4. Stop smoking 5. Monitor for clinical and radiographic improvement; if none, will need bronch at that point; will follow closely Plan of care reviewed with patient, he understands/agrees Thanks for the consult.
[2017-09-19] MEDS: TYLENOL PO PRN (16:46)
[2017-09-19] MEDS: ZITHROMAX 500 MG in NACL 0.9% 250ML 250 ML IV SCH (18:27)
[2017-09-19] MEDS: CLARITIN-D 24HR PO SCH (21:33)
[2017-09-19] MEDS: RESTORIL PO PRN (21:34)
[2017-09-20] MEDS: TYLENOL PO PRN ×2 (00:38→18:16)
[2017-09-20] MEDS: VANCOMYCIN 1,500 MG in NACL 0.9% 500 ML 500 ML IV SCH (03:45)
[2017-09-20] MEDS: MORPHINE IV PRN ×3 (04:04→22:38)
[2017-09-20 06:27] LABS: Basophils % (Auto) 0.3 % (0.0-1.8); Eosinophils % (Auto) 0.3 % (0.0-4.3); Hematocrit 38.4 % (35.5-45.6); Hemoglobin 12.9 gm/dl (11.8-15.2); Lymphocytes # (Auto) 1.1 K/mm3 (1.2-5.4); Lymphocytes % (Auto) 9.3 % (13.4-35.0); Mean Corpuscular HGB Conc 34 % (32-34); Mean Corpuscular Hemoglobin 31 pg (28-32); Mean Corpuscular Volume 93 fl (84-94); Monocytes # (Auto) 0.7 K/mm3 (0.0-0.8); Monocytes % (Auto) 5.7 % (0.0-7.3); Platelet Count 148 K/mm3 (140-440); Red Blood Count 4.13 M/mm3 (3.65-5.03); Red Cell Distribution Width 13.3 % (13.2-15.2)
[2017-09-20] MEDS: ZOSYN/NS 4.5GM/100ML 4.5 GM/100 ML VIAL IV SCH ×3 (06:27→21:48)
[2017-09-20] MEDS: HEPARIN SUB-Q SCH ×3 (06:28→21:50)
[2017-09-20 09:44] LABS: BUN/Creatinine Ratio 13; Blood Urea Nitrogen 10 mg/dL (9-20); Calcium 7.9 mg/dL (8.4-10.2); Hemolysis Index 21
--- NOTE | 2017-09-20 10:51 | Progress Note ---
Assessment and Plan Assessment: 1) Sepsis: Present on admission, manifested by fever, tachycardia, leukocytosis. Etiology most likely pneumonia -CRP = 19.70 2) Pneumonia: CT chest showed bilateral lung infiltrate. HAP vs CAP 3) Acute hypoxia; respiratory failure Plan: -follow-up urine culture -follow up on respiratory cultures -continue zosyn day 4 and azithromycin day 2 -add zyvox 600 mg iv q 12 hrs -stop vanco -pulmonary following, may do bronch if not better Thank you Dr. Bates, will follow up Gurpreet Stein NP-C for Dr. Payton Lutz MD Infectious Diseases Specialist [facility] ([facility]) M [phone] O [phone] Subjective Date of service: 09/20/17 Principal diagnosis: persistent fever and worsening PNA Interval history: I have been having difficulty breathing, still fever Microbiology: Blood cultures: 09/17 ngtd Urine cultures: Respiratory cultures: sputum 09/19 showed gram positive cocci Current Antimicrobials: zosyn 09/17 Vancomycin 09/17 Azithromycin 09/19 Previous Antimicrobials: Tamiflu Objective - Exam Narrative Exam: General appearance: SOB Eyes: anicteric sclerae, moist conjunctivae; no lid-lag; PERRLA HENT: Atraumatic; oropharynx clear with moist mucous membranes and no mucosal ulcerations/no oral thrush; normal hard and soft palate. Normal external ears. Neck: Trachea midline; supple, no thyromegaly or lymphadenopathy Lungs: breath sounds diminished bilaterally with scattered ronchi, SOB CV: RRR, no murmurs Abdomen: Soft, non-tender; +BS x 4 Extremities: warm, dry, intact Skin: Normal temperature, turgor and texture; no rash, ulcers or subcutaneous nodules Psych: Appropriate affect, cooperative Neuro: alert and oriented x 3. Lines: No CVL / PIC - Constitutional Vitals: Vital Signs Temp Pulse Resp BP Pulse Ox 99.6 F 95 H 18 145/85 99 09/20/17 05:40 09/20/17 05:40 09/20/17 05:40 09/20/17 05:40 09/20/17 05:40 Temperature -Last 24 Hours Temperature 99.6 F Temperature 101.2 F Temperature 99.3 F - Labs CBC & Chem 7: 09/20/17 06:00 09/20/17 06:00 Labs: Abnormal lab results 09/20/17 09/20/17 Range/Units 06:00 06:00 WBC 11.6 H (4.5-11.0) K/mm3 Lymph % (Auto) 9.3 L (13.4-35.0) % Lymph # 1.1 L (1.2-5.4) K/mm3 Seg Neutrophils % 84.4 H (40.0-70.0) % Seg Neutrophils # 9.8 H (1.8-7.7) K/mm3 Potassium 3.5 L D (3.6-5.0) mmol/L Glucose 101 H (75-100) mg/dL Calcium 7.9 L (8.4-10.2) mg/dL
--- NOTE | 2017-09-20 10:54 | Progress Note ---
Assessment and Plan Assessment and plan: --post influenza pneumonia [necrotizing pneumonia ] currently on Zosyn and Zyvox per ID Continue supportive care, pulmonary following --Acute hypoxic respiratory failure requiring BiPAP Probably secondary to worsening pneumonia, oxygen titrated to O2 sats more than 90% Wean BiPAP to Ventimask, nebulizers as needed --Sepsis; secondary to pneumonia, continue current management --Possible influenza; patient received 5 days of Tamiflu --Hypokalemia; replace per protocol and monitor levels --DVT prophylaxis; with heparin Plan of care discussed with the patient, is 5 and the nurse History Interval history: Patient seen and examined this morning medical records reviewed Patient looks sick, say he feels slightly better B coronary oriented 3 not in acute distress Vital signs reviewed Hospitalist Physical - Constitutional Vitals: Temp Pulse Resp BP Pulse Ox 99.6 F 95 H 18 145/85 99 09/20/17 05:40 09/20/17 05:40 09/20/17 05:40 09/20/17 05:40 09/20/17 05:40 General appearance: Present: mild distress, well-nourished - EENT Eyes: Present: PERRL, EOM intact - Neck Neck: Present: supple, normal ROM - Respiratory Respiratory effort: normal Respiratory: bilateral: diminished, negative: rales, rhonchi, wheezing - Cardiovascular Rhythm: regular Heart Sounds: Present: S1 & S2 - Extremities Extremities: no ischemia, No edema - Abdominal General gastrointestinal: soft, non-tender, non-distended, normal bowel sounds - Integumentary Integumentary: Present: clear, warm - Psychiatric Psychiatric: appropriate mood/affect, cooperative - Neurologic Neurologic: CNII-XII intact, moves all extremities Results - Labs CBC & Chem 7: 09/20/17 06:00 09/20/17 06:00 Labs: Laboratory Last Values WBC 11.6 K/mm3 (4.5-11.0) H 09/20/17 06:00 RBC 4.13 M/mm3 (3.65-5.03) 09/20/17 06:00 Hgb 12.9 gm/dl (11.8-15.2) 09/20/17 06:00 Hct 38.4 % (35.5-45.6) 09/20/17 06:00 MCV 93 fl (84-94) 09/20/17 06:00 MCH 31 pg (28-32) 09/20/17 06:00 MCHC 34 % (32-34) 09/20/17 06:00 RDW 13.3 % (13.2-15.2) 09/20/17 06:00 Plt Count 148 K/mm3 (140-440) 09/20/17 06:00 Lymph % (Auto) 9.3 % (13.4-35.0) L 09/20/17 06:00 Ness % (Auto) 5.7 % (0.0-7.3) 09/20/17 06:00 Eos % (Auto) 0.3 % (0.0-4.3) 09/20/17 06:00 Baso % (Auto) 0.3 % (0.0-1.8) 09/20/17 06:00 Lymph # 1.1 K/mm3 (1.2-5.4) L 09/20/17 06:00 Ness # 0.7 K/mm3 (0.0-0.8) 09/20/17 06:00 Eos # 0.0 K/mm3 (0.0-0.4) 09/20/17 06:00 Baso # 0.0 K/mm3 (0.0-0.1) 09/20/17 06:00 Add Manual Diff Complete 09/17/17 00:28 Total Counted 100 09/17/17 00:28 Seg Neutrophils % 84.4 % (40.0-70.0) H 09/20/17 06:00 Seg Neuts % (Manual) 41.0 % (40.0-70.0) 09/17/17 00:28 Band Neutrophils % 43.0 % 09/17/17 00:28 Lymphocytes % (Manual) 6.0 % (13.4-35.0) L 09/17/17 00:28 Reactive Lymphs % (Man) 0 % 09/17/17 00:28 Monocytes % (Manual) 10.0 % (0.0-7.3) H 09/17/17 00:28 Eosinophils % (Manual) 0 % (0.0-4.3) 09/17/17 00:28 Basophils % (Manual) 0 % (0.0-1.8) 09/17/17 00:28 Metamyelocytes % 0 % 09/17/17 00:28 Myelocytes % 0 % 09/17/17 00:28 Promyelocytes % 0 % 09/17/17 00:28 Blast Cells % 0 % 09/17/17 00:28 Nucleated RBC % Not Reportable 09/17/17 00:28 Seg Neutrophils # 9.8 K/mm3 (1.8-7.7) H 09/20/17 06:00 Seg Neutrophils # Man 4.9 K/mm3 (1.8-7.7) 09/17/17 00:28 Band Neutrophils # 5.2 K/mm3 09/17/17 00:28 Lymphocytes # (Manual) 0.7 K/mm3 (1.2-5.4) L 09/17/17 00:28 Abs React Lymphs (Man) 0.0 K/mm3 09/17/17 00:28 Monocytes # (Manual) 1.2 K/mm3 (0.0-0.8) H 09/17/17 00:28 Eosinophils # (Manual) 0.0 K/mm3 (0.0-0.4) 09/17/17 00:28 Basophils # (Manual) 0.0 K/mm3 (0.0-0.1) 09/17/17 00:28 Metamyelocytes # 0.0 K/mm3 09/17/17 00:28 Myelocytes # 0.0 K/mm3 09/17/17 00:28 Promyelocytes # 0.0 K/mm3 09/17/17 00:28 Blast Cells # 0.0 K/mm3 09/17/17 00:28 WBC Morphology Not Reportable 09/17/17 00:28 Hypersegmented Neuts Not Reportable 09/17/17 00:28 Hyposegmented Neuts Not Reportable 09/17/17 00:28 Hypogranular Neuts Not Reportable 09/17/17 00:28 Smudge Cells Not Reportable 09/17/17 00:28 Toxic Granulation Not Reportable 09/17/17 00:28 Toxic Vacuolation Not Reportable 09/17/17 00:28 Dohle Bodies Not Reportable 09/17/17 00:28 Pelger-Huet Anomaly Not Reportable 09/17/17 00:28 Rufino Rods Not Reportable 09/17/17 00:28 Platelet Estimate Appears normal 09/17/17 00:28 Clumped Platelets Not Reportable 09/17/17 00:28 Plt Clumps, EDTA Not Reportable 09/17/17 00:28 Large Platelets Not Reportable 09/17/17 00:28 Giant Platelets Not Reportable 09/17/17 00:28 Platelet Satelliting Not Reportable 09/17/17 00:28 Plt Morphology Comment Not Reportable 09/17/17 00:28 RBC Morphology Not Reportable 09/17/17 00:28 Dimorphic RBCs Not Reportable 09/17/17 00:28 Polychromasia Not Reportable 09/17/17 00:28 Hypochromasia 1+ 09/17/17 00:28 Poikilocytosis Not Reportable 09/17/17 00:28 Anisocytosis 1+ 09/17/17 00:28 Microcytosis Not Reportable 09/17/17 00:28 Macrocytosis Not Reportable 09/17/17 00:28 Spherocytes Not Reportable 09/17/17 00:28 Pappenheimer Bodies Not Reportable 09/17/17 00:28 Sickle Cells Not Reportable 09/17/17 00:28 Target Cells Not Reportable 09/17/17 00:28 Tear Drop Cells Not Reportable 09/17/17 00:28 Ovalocytes Not Reportable 09/17/17 00:28 Helmet Cells Not Reportable 09/17/17 00:28 [place] Bodies Not Reportable 09/17/17 00:28 [place] Rings Not Reportable 09/17/17 00:28 [place] Cells Not Reportable 09/17/17 00:28 Bite Cells Not Reportable 09/17/17 00:28 Crenated Cell Not Reportable 09/17/17 00:28 Elliptocytes Not Reportable 09/17/17 00:28 Acanthocytes (Spur) Not Reportable 09/17/17 00:28 Rouleaux Not Reportable 09/17/17 00:28 Hemoglobin C Crystals Not Reportable 09/17/17 00:28 Schistocytes Not Reportable 09/17/17 00:28 Malaria parasites Not Reportable 09/17/17 00:28 Flip Bodies Not Reportable 09/17/17 00:28 Hem Pathologist Commnt No 09/17/17 00:28 Sodium 140 mmol/L (137-145) 09/20/17 06:00 Potassium 3.5 mmol/L (3.6-5.0) L D 09/20/17 06:00 Chloride 100.3 mmol/L (98-107) 09/20/17 06:00 Carbon Dioxide 28 mmol/L (22-30) 09/20/17 06:00 Anion Gap 15 mmol/L 09/20/17 06:00 BUN 10 mg/dL (9-20) 09/20/17 06:00 Creatinine 0.8 mg/dL (0.8-1.5) 09/20/17 06:00 Estimated GFR > 60 ml/min 09/20/17 06:00 BUN/Creatinine Ratio 13 % 09/20/17 06:00 Glucose 101 mg/dL (75-100) H 09/20/17 06:00 Lactic Acid 1.30 mmol/L (0.7-2.0) 09/17/17 03:09 Calcium 7.9 mg/dL (8.4-10.2) L 09/20/17 06:00 Magnesium 2.10 mg/dL (1.7-2.3) 09/20/17 06:00 C-Reactive Protein 19.70 mg/dL (0.00-1.30) H 09/19/17 07:00 Vancomycin Trough 6.8 ug/mL (5.0-20.0) 09/19/17 16:35
[2017-09-20] MEDS: PEPCID PO SCH ×2 (10:56→21:49)
[2017-09-20] MEDS: NACL 0.9% 1000 ML 1,000 ML IV SCH ×2 (11:13→21:50)
[2017-09-20] MEDS ORDERED: VANCOMYCIN 1,500 MG in NACL 0.9% 500 ML 500 ML IV SCH (12:00)
--- NOTE | 2017-09-20 15:29 | Progress Note ---
Assessment and Plan HIV PCR neg Imp: 1. Suspect post-influenza necrotizing pneumonia, probably staph versus HCAP from prior hospitalization 2. Acute respiratory failure, hypoxia 3. Sepsis 4. Chronic nicotine dependence, cigarettes 5. Hemoptysis Rec: 1. Agree with Zyvox/Zosyn; would complete a course of atypical coverage as originally planned 2. Has completed 5 days of Tamiflu 3. Sputum culture is pending, and f/u blood cultures 4. Stop smoking 5. Monitor for clinical and radiographic improvement; if none and sputum studies unrevealing, will need bronch at that point; will follow closely Plan of care reviewed with patient, he understands/agrees Subjective Date of service: 09/20/17 Principal diagnosis: persistent fever and worsening PNA Interval history: SOB, cough, sputum about the same. Required BIPAP overnight. No new complaints. Active Medications Acetaminophen (Tylenol) 650 mg PO Q4H PRN PRN Reason: Pain, Mild (1-3) Last Admin: 09/20/17 00:38 Dose: 650 mg Albuterol (Proventil) 2.5 mg IH Q4HRT PRN PRN Reason: Shortness Of Breath Alprazolam (Xanax) 0.25 mg PO Q8H PRN PRN Reason: Anxiety Famotidine (Pepcid) 20 mg PO BID [facility] Last Admin: 09/20/17 10:56 Dose: 20 mg Guaifenesin (Guaifenesin Dm Syrup) 10 ml PO Q4H PRN PRN Reason: Cough Heparin Sodium (Porcine) (Heparin) 5,000 unit SUB-Q Q8HR [facility] Last Admin: 09/20/17 06:28 Dose: 5,000 unit Sodium Chloride (Nacl 0.9% 1000 Ml) 1,000 mls @ 125 mls/hr IV DIRECT [facility] Last Admin: 09/20/17 11:13 Dose: 125 mls/hr Piperacillin Sod/Tazobactam Sod (Zosyn/Ns 4.5gm/100ml) 4.5 gm in 100 mls @ 200 mls/hr IV Q8HR [facility] PRN Reason: Protocol Last Admin: 09/20/17 06:27 Dose: 200 mls/hr Azithromycin 500 mg/ Sodium (Chloride) 250 mls @ 250 mls/hr IV Q24HR [facility] Last Admin: 09/19/17 18:27 Dose: 250 mls/hr Linezolid (Zyvox 600mg/300ml) 600 mg in 300 mls @ 300 mls/hr IV Q12HR [facility] PRN Reason: Protocol Ibuprofen (Motrin) 600 mg PO TID PRN PRN Reason: Pain, Mild (1-3) Last Admin: 09/17/17 16:46 Dose: 600 mg Loratadine/Pseudoephedrine Sulfate (Claritin-D 24hr) 1 each PO Q24HR [facility] Last Admin: 09/19/17 21:33 Dose: 1 each Morphine Sulfate (Morphine) 1 mg IV Q6H PRN PRN Reason: Pain, Moderate (4-6) Last Admin: 09/20/17 04:04 Dose: 1 mg Temazepam (Restoril) 15 mg PO QHS PRN PRN Reason: Sleep Last Admin: 09/19/17 21:34 Dose: 15 mg Objective Vital Signs - 12hr 09/20/17 09/20/17 09/20/17 04:04 04:13 04:34 Temperature Pulse Rate Respiratory 20 20 Rate Respiratory 20 Rate [ Generalized] Blood Pressure [Left] O2 Sat by Pulse Oximetry 09/20/17 09/20/17 09/20/17 05:40 10:00 11:19 Temperature 99.6 F Pulse Rate 95 H Respiratory 18 24 Rate Respiratory Rate [ Generalized] Blood Pressure 145/85 [Left] O2 Sat by Pulse 99 98 96 Oximetry Constitutional: no acute distress, alert Eyes: non-icteric Neck: supple Effort: mildly labored Ascultation: Left: rhonchi Cardiovascular: regular rate and rhythm (no mrg) Gastrointestinal: normoactive bowel sounds, soft, non-tender, non-distended Integumentary: normal Extremities: no cyanosis, no edema, pink and warm Neurologic: normal mental status, non-focal exam, pupils equal and round, CN II- XII normal Psychiatric: mood appropriate, affect normal CBC and BMP: 09/20/17 06:00 09/20/17 06:00 Abnormal lab findings: Abnormal Labs 09/17/17 09/17/17 09/19/17 00:28 00:28 07:00 WBC 12.0 H 15.1 H RDW 13.1 L Lymph % (Auto) 8.2 L Lymph # [place] # 1.0 H Seg Neutrophils % 85.1 H Lymphocytes % (Manual) 6.0 L Monocytes % (Manual) 10.0 H Seg Neutrophils # 12.9 H Lymphocytes # (Manual) 0.7 L Monocytes # (Manual) 1.2 H Potassium 3.0 L Glucose 160 H Calcium 8.3 L D C-Reactive Protein 09/19/17 09/19/17 09/20/17 07:00 07:00 06:00 WBC 11.6 H RDW Lymph % (Auto) 9.3 L Lymph # 1.1 L [place] # Seg Neutrophils % 84.4 H Lymphocytes % (Manual) Monocytes % (Manual) Seg Neutrophils # 9.8 H Lymphocytes # (Manual) Monocytes # (Manual) Potassium 2.8 L* Glucose 101 H Calcium 7.8 L C-Reactive Protein 19.70 H 09/20/17 06:00 WBC RDW Lymph % (Auto) Lymph # [place] # Seg Neutrophils % Lymphocytes % (Manual) Monocytes % (Manual) Seg Neutrophils # Lymphocytes # (Manual) Monocytes # (Manual) Potassium 3.5 L D Glucose 101 H Calcium 7.9 L C-Reactive Protein Chest x-ray: report reviewed, image reviewed CT scan - chest: report reviewed, image reviewed
[2017-09-20] MEDS: ZYVOX 600MG/300ML 600 MG/300 ML BAG IV SCH ×2 (15:46→22:38)
[2017-09-20] MEDS: CLARITIN-D 24HR PO SCH (19:55)
[2017-09-20] MEDS: ZITHROMAX 500 MG in NACL 0.9% 250ML 250 ML IV SCH (20:32)
[2017-09-20] MEDS: RESTORIL PO PRN (22:38)
[2017-09-21] MEDS: ZOSYN/NS 4.5GM/100ML 4.5 GM/100 ML VIAL IV SCH ×3 (05:30→21:59)
[2017-09-21] MEDS: HEPARIN SUB-Q SCH ×3 (05:31→22:00)
[2017-09-21] MEDS: TYLENOL PO PRN (05:31)
[2017-09-21 07:34] LABS: Basophils % (Auto) 0.2 % (0.0-1.8); Eosinophils % (Auto) 0.4 % (0.0-4.3); Hematocrit 37.1 % (35.5-45.6); Hemoglobin 12.1 gm/dl (11.8-15.2); Lymphocytes # (Auto) 0.8 K/mm3 (1.2-5.4); Lymphocytes % (Auto) 9.4 % (13.4-35.0); Mean Corpuscular HGB Conc 33 % (32-34); Mean Corpuscular Hemoglobin 31 pg (28-32); Mean Corpuscular Volume 94 fl (84-94); Monocytes # (Auto) 0.6 K/mm3 (0.0-0.8); Monocytes % (Auto) 6.5 % (0.0-7.3); Platelet Count 170 K/mm3 (140-440); Red Blood Count 3.96 M/mm3 (3.65-5.03); Red Cell Distribution Width 13.7 % (13.2-15.2)
[2017-09-21 07:42] LABS: BUN/Creatinine Ratio 10; Blood Urea Nitrogen 8 mg/dL (9-20); Calcium 7.6 mg/dL (8.4-10.2); Hemolysis Index 10
[2017-09-21] MEDS: NACL 0.9% 1000 ML 1,000 ML IV SCH (10:09)
[2017-09-21] MEDS: ZITHROMAX 500 MG in NACL 0.9% 250ML 250 ML IV SCH (10:13)
[2017-09-21] MEDS: PEPCID PO SCH ×2 (10:13→22:00)
--- NOTE | 2017-09-21 10:25 | Progress Note ---
Assessment and Plan Assessment: 1) Sepsis: Present on admission, manifested by fever, tachycardia, leukocytosis. Etiology most likely pneumonia -CRP = 19.70 -sputum 09/19 showed gram positive cocci 2) Pneumonia: CT chest showed bilateral lung infiltrate. HAP vs CAP 3) Acute hypoxia; respiratory failure Plan: -follow-up urine culture -continue zosyn day 5, azithromycin day 3, zyvox day 2 -pulmonary following, Monitor for clinical and radiographic improvement; if none and sputum studies unrevealing, will need bronch at that point Thank you Dr. Bates, will follow up Gurpreet Stein NP-C for Dr. Payton Lutz MD Infectious Diseases Specialist [facility] [phone] Subjective Date of service: 09/21/17 Principal diagnosis: persistent fever and worsening PNA Interval history: I feel better today but I'm still having fever Microbiology: Blood cultures: 09/17 ngtd Urine cultures: Respiratory cultures: sputum 09/19 showed gram positive cocci Current Antimicrobials: zosyn 09/17 zyvox 09/20 Azithromycin 09/19 Previous Antimicrobials: Tamiflu Vancomycin 09/17 Objective - Exam Narrative Exam: General appearance: SOB Eyes: anicteric sclerae, moist conjunctivae; no lid-lag; PERRLA HENT: Atraumatic; oropharynx clear with moist mucous membranes and no mucosal ulcerations/no oral thrush; normal hard and soft palate. Normal external ears. Neck: Trachea midline; supple, no thyromegaly or lymphadenopathy Lungs: breath sounds diminished bilaterally with scattered ronchi, SOB CV: RRR, no murmurs Abdomen: Soft, non-tender; +BS x 4 Extremities: warm, dry, intact Skin: Normal temperature, turgor and texture; no rash, ulcers or subcutaneous nodules Psych: Appropriate affect, cooperative Neuro: alert and oriented x 3. Lines: No CVL / PIC - Constitutional Vitals: Vital Signs Temp Pulse Resp BP Pulse Ox 102.6 F H 90 20 127/80 97 09/21/17 05:09 09/21/17 00:29 09/21/17 06:31 09/21/17 05:09 09/21/17 00:29 Temperature -Last 24 Hours Temperature 102.6 F Temperature 99.3 F Temperature 98.9 F Temperature 102.2 F Temperature 101.8 F - Labs CBC & Chem 7: 09/21/17 06:20 09/21/17 06:20 Labs: Abnormal lab results 09/21/17 09/21/17 Range/Units 06:20 06:20 Lymph % (Auto) 9.4 L (13.4-35.0) % Lymph # 0.8 L (1.2-5.4) K/mm3 Seg Neutrophils % 83.5 H (40.0-70.0) % Potassium 3.2 L (3.6-5.0) mmol/L BUN 8 L (9-20) mg/dL Glucose 124 H (75-100) mg/dL Calcium 7.6 L (8.4-10.2) mg/dL
[2017-09-21] MEDS ORDERED: K-DUR PO NR (11:30)
--- NOTE | 2017-09-21 11:39 | Progress Note ---
Assessment and Plan Assessment and plan: --post influenza MRSA [necrotizing pneumonia ] continue Zyvox and Zosyn , follow ID recommendations Contact isolation, pulmonary following --Acute hypoxic respiratory failure requiring BiPAP secondary to worsening pneumonia, oxygen titrated to O2 sats more than 90% BiPAP and nebulizers as needed --Persistent fevers; ID following --Sepsis; secondary to pneumonia, continue current management --Possible influenza; patient received 5 days of Tamiflu --Hypokalemia; replace per protocol and monitor levels --DVT prophylaxis; with heparin Plan of care discussed with the patient, and his nurse Consults and recommendations noted and appreciated History Interval history: Patient seen and evaluated medical records reviewed Sputum cultures positive for MRSA, the patient is already on contact isolation He is slightly better, looks chronically ill Persistent fever MAXIMUM TEMPERATURE 102 Vital signs reviewed Patient complains of generalized weakness Hospitalist Physical - Constitutional Vitals: Temp Pulse Resp BP Pulse Ox 98.8 F 85 18 117/76 99 09/21/17 09:07 09/21/17 09:07 09/21/17 09:07 09/21/17 09:07 09/21/17 09:07 General appearance: Present: mild distress, cachectic - EENT Eyes: Present: PERRL, EOM intact - Neck Neck: Present: supple, normal ROM - Respiratory Respiratory effort: normal Respiratory: bilateral: diminished, rhonchi, negative: rales, wheezing - Cardiovascular Rhythm: regular Heart Sounds: Present: S1 & S2 - Extremities Extremities: no ischemia, No edema - Abdominal General gastrointestinal: soft, non-tender, non-distended, normal bowel sounds - Integumentary Integumentary: Present: clear, warm - Psychiatric Psychiatric: appropriate mood/affect, cooperative - Neurologic Neurologic: CNII-XII intact, moves all extremities Results - Labs CBC & Chem 7: 09/21/17 06:20 09/21/17 06:20 Labs: Laboratory Last Values WBC 8.7 K/mm3 (4.5-11.0) 09/21/17 06:20 RBC 3.96 M/mm3 (3.65-5.03) 09/21/17 06:20 Hgb 12.1 gm/dl (11.8-15.2) 09/21/17 06:20 Hct 37.1 % (35.5-45.6) 09/21/17 06:20 MCV 94 fl (84-94) 09/21/17 06:20 MCH 31 pg (28-32) 09/21/17 06:20 MCHC 33 % (32-34) 09/21/17 06:20 RDW 13.7 % (13.2-15.2) 09/21/17 06:20 Plt Count 170 K/mm3 (140-440) 09/21/17 06:20 Lymph % (Auto) 9.4 % (13.4-35.0) L 09/21/17 06:20 [place] % (Auto) 6.5 % (0.0-7.3) 09/21/17 06:20 Eos % (Auto) 0.4 % (0.0-4.3) 09/21/17 06:20 Baso % (Auto) 0.2 % (0.0-1.8) 09/21/17 06:20 Lymph # 0.8 K/mm3 (1.2-5.4) L 09/21/17 06:20 [place] # 0.6 K/mm3 (0.0-0.8) 09/21/17 06:20 Eos # 0.0 K/mm3 (0.0-0.4) 09/21/17 06:20 Baso # 0.0 K/mm3 (0.0-0.1) 09/21/17 06:20 Add Manual Diff Complete 09/17/17 00:28 Total Counted 100 09/17/17 00:28 Seg Neutrophils % 83.5 % (40.0-70.0) H 09/21/17 06:20 Seg Neuts % (Manual) 41.0 % (40.0-70.0) 09/17/17 00:28 Band Neutrophils % 43.0 % 09/17/17 00:28 Lymphocytes % (Manual) 6.0 % (13.4-35.0) L 09/17/17 00:28 Reactive Lymphs % (Man) 0 % 09/17/17 00:28 Monocytes % (Manual) 10.0 % (0.0-7.3) H 09/17/17 00:28 Eosinophils % (Manual) 0 % (0.0-4.3) 09/17/17 00:28 Basophils % (Manual) 0 % (0.0-1.8) 09/17/17 00:28 Metamyelocytes % 0 % 09/17/17 00:28 Myelocytes % 0 % 09/17/17 00:28 Promyelocytes % 0 % 09/17/17 00:28 Blast Cells % 0 % 09/17/17 00:28 Nucleated RBC % Not Reportable 09/17/17 00:28 Seg Neutrophils # 7.2 K/mm3 (1.8-7.7) 09/21/17 06:20 Seg Neutrophils # Man 4.9 K/mm3 (1.8-7.7) 09/17/17 00:28 Band Neutrophils # 5.2 K/mm3 09/17/17 00:28 Lymphocytes # (Manual) 0.7 K/mm3 (1.2-5.4) L 09/17/17 00:28 Abs React Lymphs (Man) 0.0 K/mm3 09/17/17 00:28 Monocytes # (Manual) 1.2 K/mm3 (0.0-0.8) H 09/17/17 00:28 Eosinophils # (Manual) 0.0 K/mm3 (0.0-0.4) 09/17/17 00:28 Basophils # (Manual) 0.0 K/mm3 (0.0-0.1) 09/17/17 00:28 Metamyelocytes # 0.0 K/mm3 09/17/17 00:28 Myelocytes # 0.0 K/mm3 09/17/17 00:28 Promyelocytes # 0.0 K/mm3 09/17/17 00:28 Blast Cells # 0.0 K/mm3 09/17/17 00:28 WBC Morphology Not Reportable 09/17/17 00:28 Hypersegmented Neuts Not Reportable 09/17/17 00:28 Hyposegmented Neuts Not Reportable 09/17/17 00:28 Hypogranular Neuts Not Reportable 09/17/17 00:28 Smudge Cells Not Reportable 09/17/17 00:28 Toxic Granulation Not Reportable 09/17/17 00:28 Toxic Vacuolation Not Reportable 09/17/17 00:28 Dohle Bodies Not Reportable 09/17/17 00:28 [place] Anomaly Not Reportable 09/17/17 00:28 Rufino Rods Not Reportable 09/17/17 00:28 Platelet Estimate Appears normal 09/17/17 00:28 Clumped Platelets Not Reportable 09/17/17 00:28 Plt Clumps, EDTA Not Reportable 09/17/17 00:28 Large Platelets Not Reportable 09/17/17 00:28 Giant Platelets Not Reportable 09/17/17 00:28 Platelet Satelliting Not Reportable 09/17/17 00:28 Plt Morphology Comment Not Reportable 09/17/17 00:28 RBC Morphology Not Reportable 09/17/17 00:28 Dimorphic RBCs Not Reportable 09/17/17 00:28 Polychromasia Not Reportable 09/17/17 00:28 Hypochromasia 1+ 09/17/17 00:28 Poikilocytosis Not Reportable 09/17/17 00:28 Anisocytosis 1+ 09/17/17 00:28 Microcytosis Not Reportable 09/17/17 00:28 Macrocytosis Not Reportable 09/17/17 00:28 Spherocytes Not Reportable 09/17/17 00:28 Pappenheimer Bodies Not Reportable 09/17/17 00:28 Sickle Cells Not Reportable 09/17/17 00:28 Target Cells Not Reportable 09/17/17 00:28 Tear Drop Cells Not Reportable 09/17/17 00:28 Ovalocytes Not Reportable 09/17/17 00:28 Helmet Cells Not Reportable 09/17/17 00:28 [place] Bodies Not Reportable 09/17/17 00:28 [place] Rings Not Reportable 09/17/17 00:28 [place] Cells Not Reportable 09/17/17 00:28 Bite Cells Not Reportable 09/17/17 00:28 Crenated Cell Not Reportable 09/17/17 00:28 Elliptocytes Not Reportable 09/17/17 00:28 Acanthocytes (Spur) Not Reportable 09/17/17 00:28 Rouleaux Not Reportable 09/17/17 00:28 Hemoglobin C Crystals Not Reportable 09/17/17 00:28 Schistocytes Not Reportable 09/17/17 00:28 [place] parasites Not Reportable 09/17/17 00:28 Flip Bodies Not Reportable 09/17/17 00:28 Hem Pathologist Commnt No 09/17/17 00:28 Sodium 142 mmol/L (137-145) 09/21/17 06:20 Potassium 3.2 mmol/L (3.6-5.0) L 09/21/17 06:20 Chloride 101.7 mmol/L (98-107) 09/21/17 06:20 Carbon Dioxide 28 mmol/L (22-30) 09/21/17 06:20 Anion Gap 16 mmol/L 09/21/17 06:20 BUN 8 mg/dL (9-20) L 09/21/17 06:20 Creatinine 0.8 mg/dL (0.8-1.5) 09/21/17 06:20 Estimated GFR > 60 ml/min 09/21/17 06:20 BUN/Creatinine Ratio 10 % 09/21/17 06:20 Glucose 124 mg/dL (75-100) H 09/21/17 06:20 Lactic Acid 1.30 mmol/L (0.7-2.0) 09/17/17 03:09 Calcium 7.6 mg/dL (8.4-10.2) L 09/21/17 06:20 Magnesium 2.10 mg/dL (1.7-2.3) 09/20/17 06:00 C-Reactive Protein 19.70 mg/dL (0.00-1.30) H 09/19/17 07:00 Vancomycin Trough 6.8 ug/mL (5.0-20.0) 09/19/17 16:35
[2017-09-21] MEDS: CLARITIN-D 24HR PO SCH (12:30)
[2017-09-21] MEDS: ZYVOX 600MG/300ML 600 MG/300 ML BAG IV SCH ×2 (12:30→21:59)
--- NOTE | 2017-09-21 14:53 | Progress Note ---
Assessment and Plan HIV PCR neg Imp: 1. Post-influenza necrotizing MRSA pneumonia 2. Acute respiratory failure, hypoxia 3. Sepsis 4. Chronic nicotine dependence, cigarettes 5. Hemoptysis Rec: 1. D/c Azithro; continue Zyvox versus MRSA; f/u ID recs 2. Has completed 5 days of Tamiflu 3. At risk for parapneumonic effusion; will repeat CXR today given persistent fevers 4. Stop smoking 5. Monitor for clinical and radiographic improvement 6. Complex decision-making Plan of care reviewed with patient, he understands/agrees Subjective Date of service: 09/21/17 Principal diagnosis: persistent fever and worsening PNA Interval history: SOB better but remains on 50% VM. Continues to have purulent blood-tinged sputum. No new complaints. Active Medications Acetaminophen (Tylenol) 650 mg PO Q4H PRN PRN Reason: Pain, Mild (1-3) Last Admin: 09/21/17 05:31 Dose: 650 mg Albuterol (Proventil) 2.5 mg IH Q4HRT PRN PRN Reason: Shortness Of Breath Alprazolam (Xanax) 0.25 mg PO Q8H PRN PRN Reason: Anxiety Famotidine (Pepcid) 20 mg PO BID [facility] Last Admin: 09/21/17 10:13 Dose: 20 mg Guaifenesin (Guaifenesin Dm Syrup) 10 ml PO Q4H PRN PRN Reason: Cough Heparin Sodium (Porcine) (Heparin) 5,000 unit SUB-Q Q8HR [facility] Last Admin: 09/21/17 05:31 Dose: 5,000 unit Sodium Chloride (Nacl 0.9% 1000 Ml) 1,000 mls @ 125 mls/hr IV DIRECT [facility] Last Admin: 09/21/17 10:09 Dose: 125 mls/hr Piperacillin Sod/Tazobactam Sod (Zosyn/Ns 4.5gm/100ml) 4.5 gm in 100 mls @ 200 mls/hr IV Q8HR [facility] PRN Reason: Protocol Last Admin: 09/21/17 05:30 Dose: 200 mls/hr Linezolid (Zyvox 600mg/300ml) 600 mg in 300 mls @ 300 mls/hr IV Q12HR [facility] PRN Reason: Protocol Last Admin: 09/21/17 12:30 Dose: 300 mls/hr Ibuprofen (Motrin) 600 mg PO TID PRN PRN Reason: Pain, Mild (1-3) Last Admin: 09/17/17 16:46 Dose: 600 mg Loratadine/Pseudoephedrine Sulfate (Claritin-D 24hr) 1 each PO Q24HR [facility] Last Admin: 09/21/17 12:30 Dose: 1 each Morphine Sulfate (Morphine) 1 mg IV Q6H PRN PRN Reason: Pain, Moderate (4-6) Last Admin: 09/20/17 22:38 Dose: 1 mg Temazepam (Restoril) 15 mg PO QHS PRN PRN Reason: Sleep Last Admin: 09/20/17 22:38 Dose: 15 mg Objective Vital Signs - 12hr 09/21/17 09/21/17 09/21/17 05:09 05:31 06:31 Temperature 102.6 F H Pulse Rate Respiratory 20 22 20 Rate Blood Pressure 127/80 O2 Sat by Pulse Oximetry 09/21/17 09:07 Temperature 98.8 F Pulse Rate 85 Respiratory 18 Rate Blood Pressure 117/76 O2 Sat by Pulse 99 Oximetry Constitutional: no acute distress, alert Eyes: non-icteric Neck: supple Effort: normal Ascultation: Right: clear, Left: rhonchi Cardiovascular: regular rate and rhythm (no mrg) Gastrointestinal: normoactive bowel sounds, soft, non-tender, non-distended Integumentary: normal Extremities: no cyanosis, no edema, pink and warm Neurologic: normal mental status, non-focal exam, pupils equal and round, CN II- XII normal Psychiatric: mood appropriate, affect normal CBC and BMP: 09/21/17 06:20 09/21/17 06:20 Abnormal lab findings: Abnormal Labs 09/17/17 09/17/17 09/19/17 00:28 00:28 07:00 WBC 12.0 H 15.1 H RDW 13.1 L Lymph % (Auto) 8.2 L Lymph # [place] # 1.0 H Seg Neutrophils % 85.1 H Lymphocytes % (Manual) 6.0 L Monocytes % (Manual) 10.0 H Seg Neutrophils # 12.9 H Lymphocytes # (Manual) 0.7 L Monocytes # (Manual) 1.2 H Potassium 3.0 L BUN Glucose 160 H Calcium 8.3 L D C-Reactive Protein 09/19/17 09/19/17 09/20/17 07:00 07:00 06:00 WBC 11.6 H RDW Lymph % (Auto) 9.3 L Lymph # 1.1 L [place] # Seg Neutrophils % 84.4 H Lymphocytes % (Manual) Monocytes % (Manual) Seg Neutrophils # 9.8 H Lymphocytes # (Manual) Monocytes # (Manual) Potassium 2.8 L* BUN Glucose 101 H Calcium 7.8 L C-Reactive Protein 19.70 H 09/20/17 09/21/17 09/21/17 06:00 06:20 06:20 WBC RDW Lymph % (Auto) 9.4 L Lymph # 0.8 L [place] # Seg Neutrophils % 83.5 H Lymphocytes % (Manual) Monocytes % (Manual) Seg Neutrophils # Lymphocytes # (Manual) Monocytes # (Manual) Potassium 3.5 L D 3.2 L BUN 8 L Glucose 101 H 124 H Calcium 7.9 L 7.6 L C-Reactive Protein Chest x-ray: report reviewed, image reviewed CT scan - chest: report reviewed, image reviewed
[2017-09-21] MEDS: MORPHINE IV PRN (15:00)
--- NOTE | 2017-09-21 18:29 | XRay Report ---
FINAL REPORT PROCEDURE: XR CHEST 1V AP TECHNIQUE: Chest radiograph anteroposterior view. CPT 61377 HISTORY: MRSA pneumonia COMPARISON: 09/16/2017 FINDINGS: Heart: Normal. Mediastinum/Vessels: Normal. Lungs/Pleural space: There is patchy left midlung and left lower lobe airspace opacity and left pleural effusion. There is patchy opacity also in the medial right lung base. No pneumothorax. Bony thorax: No acute osseous abnormality. Life support devices: None. IMPRESSION: No significant change in left lung infiltrates. There is mild increased airspace opacity noted in the right medial lung base which may be related to new infiltrate or atelectasis
[2017-09-21] MEDS: RESTORIL PO PRN (22:28)
[2017-09-22] MEDS: MORPHINE IV PRN ×2 (00:02→14:28)
[2017-09-22] MEDS: NACL 0.9% 1000 ML 1,000 ML IV SCH ×2 (00:04→10:59)
[2017-09-22] MEDS: HEPARIN SUB-Q SCH ×3 (06:09→22:50)
[2017-09-22 07:20] LABS: Basophils % (Auto) 0.3 % (0.0-1.8); Eosinophils % (Auto) 0.6 % (0.0-4.3); Hemoglobin 11.7 gm/dl (11.8-15.2); Lymphocytes # (Auto) 1.1 K/mm3 (1.2-5.4); Mean Corpuscular HGB Conc 34 % (32-34); Mean Corpuscular Hemoglobin 32 pg (28-32); Mean Corpuscular Volume 93 fl (84-94); Monocytes # (Auto) 0.6 K/mm3 (0.0-0.8); Monocytes % (Auto) 8.5 % (0.0-7.3); Platelet Count 194 K/mm3 (140-440); Red Blood Count 3.65 M/mm3 (3.65-5.03); Red Cell Distribution Width 13.5 % (13.2-15.2)
[2017-09-22 07:33] LABS: BUN/Creatinine Ratio 8; Blood Urea Nitrogen 6 mg/dL (9-20); Calcium 7.5 mg/dL (8.4-10.2); Hemolysis Index 16
[2017-09-22] MEDS: ZYVOX 600MG/300ML 600 MG/300 ML BAG IV SCH ×2 (10:59→23:13)
[2017-09-22] MEDS: PEPCID PO SCH ×2 (11:00→22:50)
[2017-09-22] MEDS: CLARITIN-D 24HR PO SCH (11:29)
[2017-09-22] MEDS: GUAIFENESIN DM SYRUP PO PRN ×3 (11:35→23:11)
--- NOTE | 2017-09-22 13:49 | Progress Note ---
Assessment and Plan HIV PCR neg Imp: 1. Post-influenza necrotizing MRSA pneumonia 2. Acute respiratory failure, hypoxia 3. Sepsis 4. Chronic nicotine dependence, cigarettes 5. Hemoptysis Rec: 1. Continue Zyvox versus MRSA; f/u ID recs 2. Has completed 5 days of Tamiflu 3. F/u CXR periodically 4. Stop smoking 5. Monitor for clinical and radiographic improvement; no utility in bronch given heavy growth of MRSA from the sputum 6. Complex decision-making Plan of care reviewed with patient, he understands/agrees Subjective Date of service: 09/22/17 Principal diagnosis: persistent fever and worsening PNA Interval history: SOB better but remains on 50% VM. Continues to have purulent blood-tinged sputum , slowly improving. No new complaints. Active Medications Acetaminophen (Tylenol) 650 mg PO Q4H PRN PRN Reason: Pain, Mild (1-3) Last Admin: 09/21/17 05:31 Dose: 650 mg Albuterol (Proventil) 2.5 mg IH Q4HRT PRN PRN Reason: Shortness Of Breath Alprazolam (Xanax) 0.25 mg PO Q8H PRN PRN Reason: Anxiety Famotidine (Pepcid) 20 mg PO BID [facility] Last Admin: 09/22/17 11:00 Dose: 20 mg Guaifenesin (Guaifenesin Dm Syrup) 10 ml PO Q4H PRN PRN Reason: Cough Last Admin: 09/22/17 11:35 Dose: 10 ml Heparin Sodium (Porcine) (Heparin) 5,000 unit SUB-Q Q8HR [facility] Last Admin: 09/22/17 06:09 Dose: 5,000 unit Sodium Chloride (Nacl 0.9% 1000 Ml) 1,000 mls @ 125 mls/hr IV DIRECT [facility] Last Admin: 09/22/17 10:59 Dose: 125 mls/hr Linezolid (Zyvox 600mg/300ml) 600 mg in 300 mls @ 300 mls/hr IV Q12HR [facility] PRN Reason: Protocol Last Admin: 09/22/17 10:59 Dose: 300 mls/hr Ibuprofen (Motrin) 600 mg PO TID PRN PRN Reason: Pain, Mild (1-3) Last Admin: 09/17/17 16:46 Dose: 600 mg Loratadine/Pseudoephedrine Sulfate (Claritin-D 24hr) 1 each PO Q24HR [facility] Last Admin: 09/22/17 11:29 Dose: 1 each Morphine Sulfate (Morphine) 1 mg IV Q6H PRN PRN Reason: Pain, Moderate (4-6) Last Admin: 09/22/17 00:02 Dose: 1 mg Temazepam (Restoril) 15 mg PO QHS PRN PRN Reason: Sleep Last Admin: 09/21/17 22:28 Dose: 15 mg Objective Vital Signs - 12hr 09/22/17 09/22/17 09/22/17 03:46 04:33 08:28 Temperature 98.4 F 99.9 F H Pulse Rate 101 H 103 H 99 H Pulse Rate [ Right Radial] Respiratory 18 35 H 20 Rate Blood Pressure 133/78 134/74 O2 Sat by Pulse 96 97 97 Oximetry 09/22/17 09/22/17 10:36 10:37 Temperature Pulse Rate 102 H Pulse Rate [ 102 H Right Radial] Respiratory Rate Blood Pressure O2 Sat by Pulse 96 Oximetry Constitutional: no acute distress, alert Eyes: non-icteric Neck: supple Effort: normal Ascultation: Right: clear, Left: rhonchi (better) Cardiovascular: regular rate and rhythm (no mrg) Gastrointestinal: normoactive bowel sounds, soft, non-tender, non-distended Integumentary: normal Extremities: no cyanosis, no edema, pink and warm Neurologic: normal mental status, non-focal exam, pupils equal and round, CN II- XII normal Psychiatric: mood appropriate, affect normal CBC and BMP: 09/22/17 06:44 09/22/17 06:44 Abnormal lab findings: Abnormal Labs 09/17/17 09/17/17 09/19/17 00:28 00:28 07:00 WBC 12.0 H 15.1 H Hgb Hct RDW 13.1 L Lymph % (Auto) 8.2 L [place] % (Auto) Lymph # [place] # 1.0 H Seg Neutrophils % 85.1 H Lymphocytes % (Manual) 6.0 L Monocytes % (Manual) 10.0 H Seg Neutrophils # 12.9 H Lymphocytes # (Manual) 0.7 L Monocytes # (Manual) 1.2 H Potassium 3.0 L BUN Glucose 160 H Calcium 8.3 L D C-Reactive Protein 09/19/17 09/19/1709/20/18 07:00 07:00 06:00 WBC 11.6 H Hgb Hct RDW Lymph % (Auto) 9.3 L [place] % (Auto) Lymph # 1.1 L [place] # Seg Neutrophils % 84.4 H Lymphocytes % (Manual) Monocytes % (Manual) Seg Neutrophils # 9.8 H Lymphocytes # (Manual) Monocytes # (Manual) Potassium 2.8 L* BUN Glucose 101 H Calcium 7.8 L C-Reactive Protein 19.70 H 09/20/17 09/21/17 09/21/17 06:00 06:20 06:20 WBC Hgb Hct RDW Lymph % (Auto) 9.4 L [place] % (Auto) Lymph # 0.8 L [place] # Seg Neutrophils % 83.5 H Lymphocytes % (Manual) Monocytes % (Manual) Seg Neutrophils # Lymphocytes # (Manual) Monocytes # (Manual) Potassium 3.5 L D 3.2 L BUN 8 L Glucose 101 H 124 H Calcium 7.9 L 7.6 L C-Reactive Protein 09/22/17 09/22/17 06:44 06:44 WBC Hgb 11.7 L Hct 34.0 L RDW Lymph % (Auto) [place] % (Auto) 8.5 H Lymph # 1.1 L [place] # Seg Neutrophils % 75.6 H Lymphocytes % (Manual) Monocytes % (Manual) Seg Neutrophils # Lymphocytes # (Manual) Monocytes # (Manual) Potassium 3.4 L BUN 6 L Glucose 104 H Calcium 7.5 L C-Reactive Protein Chest x-ray: report reviewed, image reviewed (mild clearing of the L lung infiltrate; no obvious effusion)
--- NOTE | 2017-09-22 16:57 | Progress Note ---
Assessment and Plan Assessment and plan: --post influenza MRSA [necrotizing pneumonia ] continue Zyvox , cough medicine, respiratory and contact isolation , ID and pulmonary following, Contact isolation, pulmonary and ID following --Acute hypoxic respiratory failure requiring BiPAP Now significantly improved, continue nasal cannula oxygen titrated to O2 sats more than 90% --Persistent fevers; secondary to necrotizing pneumonia, significantly improved --Sepsis; continue current management --Possible influenza; influenza AB negative, patient received 5 days of Tamiflu --Hypokalemia; replace per protocol and monitor levels --DVT prophylaxis; with heparin Plan of care discussed with the patient, and his nurse Consults and recommendations noted and appreciated History Interval history: Patient seen and evaluate her medical records reviewed Patient feels slightly better today Receiving Zyvox for MRSA, post influenza necrotizing pneumonia Complaints of brownish productive cough Afebrile Alert awake oriented 3 not in acute distress Hospitalist Physical - Constitutional Vitals: Temp Pulse Resp BP Pulse Ox 99.9 F H 102 H 20 134/74 96 09/22/17 08:28 09/22/17 10:37 09/22/17 08:28 09/22/17 08:28 09/22/17 10:37 General appearance: Present: no acute distress, cachectic - EENT Eyes: Present: PERRL, EOM intact - Neck Neck: Present: supple, normal ROM - Respiratory Respiratory effort: normal Respiratory: bilateral: diminished, rhonchi, negative: rales, wheezing - Cardiovascular Rhythm: regular Heart Sounds: Present: S1 & S2 - Extremities Extremities: no ischemia, No edema Peripheral Pulses: within normal limits - Abdominal General gastrointestinal: soft, non-tender, non-distended, normal bowel sounds - Integumentary Integumentary: Present: clear, warm - Psychiatric Psychiatric: appropriate mood/affect, cooperative - Neurologic Neurologic: CNII-XII intact, moves all extremities Results - Labs CBC & Chem 7: 09/22/17 06:44 09/22/17 06:44 Labs: Laboratory Last Values WBC 7.3 K/mm3 (4.5-11.0) 09/22/17 06:44 RBC 3.65 M/mm3 (3.65-5.03) 09/22/17 06:44 Hgb 11.7 gm/dl (11.8-15.2) L 09/22/17 06:44 Hct 34.0 % (35.5-45.6) L 09/22/17 06:44 MCV 93 fl (84-94) 09/22/17 06:44 MCH 32 pg (28-32) 09/22/17 06:44 MCHC 34 % (32-34) 09/22/17 06:44 RDW 13.5 % (13.2-15.2) 09/22/17 06:44 Plt Count 194 K/mm3 (140-440) 09/22/17 06:44 Lymph % (Auto) 15.0 % (13.4-35.0) 09/22/17 06:44 [place] % (Auto) 8.5 % (0.0-7.3) H 09/22/17 06:44 Eos % (Auto) 0.6 % (0.0-4.3) 09/22/17 06:44 Baso % (Auto) 0.3 % (0.0-1.8) 09/22/17 06:44 Lymph # 1.1 K/mm3 (1.2-5.4) L 09/22/17 06:44 [place] # 0.6 K/mm3 (0.0-0.8) 09/22/17 06:44 Eos # 0.0 K/mm3 (0.0-0.4) 09/22/17 06:44 Baso # 0.0 K/mm3 (0.0-0.1) 09/22/17 06:44 Add Manual Diff Complete 09/17/17 00:28 Total Counted 100 09/17/17 00:28 Seg Neutrophils % 75.6 % (40.0-70.0) H 09/22/17 06:44 Seg Neuts % (Manual) 41.0 % (40.0-70.0) 09/17/17 00:28 Band Neutrophils % 43.0 % 09/17/17 00:28 Lymphocytes % (Manual) 6.0 % (13.4-35.0) L 09/17/17 00:28 Reactive Lymphs % (Man) 0 % 09/17/17 00:28 Monocytes % (Manual) 10.0 % (0.0-7.3) H 09/17/17 00:28 Eosinophils % (Manual) 0 % (0.0-4.3) 09/17/17 00:28 Basophils % (Manual) 0 % (0.0-1.8) 09/17/17 00:28 Metamyelocytes % 0 % 09/17/17 00:28 Myelocytes % 0 % 09/17/17 00:28 Promyelocytes % 0 % 09/17/17 00:28 Blast Cells % 0 % 09/17/17 00:28 Nucleated RBC % Not Reportable 09/17/17 00:28 Seg Neutrophils # 5.5 K/mm3 (1.8-7.7) 09/22/17 06:44 Seg Neutrophils # Man 4.9 K/mm3 (1.8-7.7) 09/17/17 00:28 Band Neutrophils # 5.2 K/mm3 09/17/17 00:28 Lymphocytes # (Manual) 0.7 K/mm3 (1.2-5.4) L 09/17/17 00:28 Abs React Lymphs (Man) 0.0 K/mm3 09/17/17 00:28 Monocytes # (Manual) 1.2 K/mm3 (0.0-0.8) H 09/17/17 00:28 Eosinophils # (Manual) 0.0 K/mm3 (0.0-0.4) 09/17/17 00:28 Basophils # (Manual) 0.0 K/mm3 (0.0-0.1) 09/17/17 00:28 Metamyelocytes # 0.0 K/mm3 09/17/17 00:28 Myelocytes # 0.0 K/mm3 09/17/17 00:28 Promyelocytes # 0.0 K/mm3 09/17/17 00:28 Blast Cells # 0.0 K/mm3 09/17/17 00:28 WBC Morphology Not Reportable 09/17/17 00:28 Hypersegmented Neuts Not Reportable 09/17/17 00:28 Hyposegmented Neuts Not Reportable 09/17/17 00:28 Hypogranular Neuts Not Reportable 09/17/17 00:28 Smudge Cells Not Reportable 09/17/17 00:28 Toxic Granulation Not Reportable 09/17/17 00:28 Toxic Vacuolation Not Reportable 09/17/17 00:28 Dohle Bodies Not Reportable 09/17/17 00:28 Pelger-Huet Anomaly Not Reportable 01/20/18 00:28 Rufino Rods Not Reportable 09/17/17 00:28 Platelet Estimate Appears normal 09/17/17 00:28 Clumped Platelets Not Reportable 09/17/17 00:28 Plt Clumps, EDTA Not Reportable 09/17/17 00:28 Large Platelets Not Reportable 09/17/17 00:28 Giant Platelets Not Reportable 09/17/17 00:28 Platelet Satelliting Not Reportable 09/17/17 00:28 Plt Morphology Comment Not Reportable 09/17/17 00:28 RBC Morphology Not Reportable 09/17/17 00:28 Dimorphic RBCs Not Reportable 09/17/17 00:28 Polychromasia Not Reportable 09/17/17 00:28 Hypochromasia 1+ 09/17/17 00:28 Poikilocytosis Not Reportable 09/17/17 00:28 Anisocytosis 1+ 09/17/17 00:28 Microcytosis Not Reportable 09/17/17 00:28 Macrocytosis Not Reportable 09/17/17 00:28 Spherocytes Not Reportable 09/17/17 00:28 Pappenheimer Bodies Not Reportable 09/17/17 00:28 Sickle Cells Not Reportable 09/17/17 00:28 Target Cells Not Reportable 09/17/17 00:28 Tear Drop Cells Not Reportable 09/17/17 00:28 Ovalocytes Not Reportable 09/17/17 00:28 Helmet Cells Not Reportable 09/17/17 00:28 [place] Bodies Not Reportable 09/17/17 00:28 [place] Rings Not Reportable 09/17/17 00:28 [place] Cells Not Reportable 09/17/17 00:28 Bite Cells Not Reportable 09/17/17 00:28 Crenated Cell Not Reportable 09/17/17 00:28 Elliptocytes Not Reportable 09/17/17 00:28 Acanthocytes (Spur) Not Reportable 09/17/17 00:28 Rouleaux Not Reportable 09/17/17 00:28 Hemoglobin C Crystals Not Reportable 09/17/17 00:28 Schistocytes Not Reportable 09/17/17 00:28 Malaria parasites Not Reportable 09/17/17 00:28 Flip Bodies Not Reportable 09/17/17 00:28 Hem Pathologist Commnt No 01/20/18 00:28 Sodium 141 mmol/L (137-145) 09/22/17 06:44 Potassium 3.4 mmol/L (3.6-5.0) L 09/22/17 06:44 Chloride 101.5 mmol/L (98-107) 09/22/17 06:44 Carbon Dioxide 26 mmol/L (22-30) 09/22/17 06:44 Anion Gap 17 mmol/L 09/22/17 06:44 BUN 6 mg/dL (9-20) L 09/22/17 06:44 Creatinine 0.8 mg/dL (0.8-1.5) 09/22/17 06:44 Estimated GFR > 60 ml/min 09/22/17 06:44 BUN/Creatinine Ratio 8 % 09/22/17 06:44 Glucose 104 mg/dL (75-100) H 09/22/17 06:44 Lactic Acid 1.30 mmol/L (0.7-2.0) 09/17/17 03:09 Calcium 7.5 mg/dL (8.4-10.2) L 09/22/17 06:44 Magnesium 2.10 mg/dL (1.7-2.3) 09/20/17 06:00 C-Reactive Protein 19.70 mg/dL (0.00-1.30) H 09/19/17 07:00 Vancomycin Trough 6.8 ug/mL (5.0-20.0) 09/19/17 16:35
--- NOTE | 2017-09-22 19:45 | Progress Note ---
Assessment and Plan Assessment: 1) Sepsis: still fever. Etiology most likely pneumonia -CRP = 19.70 -sputum 09/19 showed gram positive cocci 2) Severe necrotizing MRSA Pneumonia and Legionella pneumonia: -CT chest showed bilateral lung infiltrate. HAP vs CAP -Sputum +MRSA -LEGIONELLA urine antigen positive 3) Acute hypoxia; respiratory failure Plan: -repeat CRP -Add levaquin to cover legionella -continue zyvox day 3 -very close monitoring Payton Deven Subjective Date of service: 09/22/17 Principal diagnosis: persistent fever and worsening PNA Interval history: Still severe cough with bloody mucopurulent sputum, still low grade fever Microbiology: Blood cultures: 09/17 ngtd Urine cultures: Respiratory cultures: sputum 09/19 MRSA Current Antimicrobials: zyvox 09/20 Previous Antimicrobials: Tamiflu Vancomycin 09/17 Azithromycin 09/19 zosyn 09/17 Objective - Exam Narrative Exam: General appearance: SOB Eyes: anicteric sclerae, moist conjunctivae; no lid-lag; PERRLA HENT: Atraumatic; oropharynx clear with moist mucous membranes and no mucosal ulcerations/no oral thrush; normal hard and soft palate. Normal external ears. Neck: Trachea midline; supple, no thyromegaly or lymphadenopathy Lungs: scattered crackles CV: RRR, no murmurs Abdomen: Soft, non-tender; +BS x 4 Extremities: contracted Skin: Normal temperature, turgor and texture; no rash, ulcers or subcutaneous nodules Psych: Appropriate affect, cooperative Neuro: alert and oriented x 3. Lines: No CVL / PIC - Constitutional Vitals: Vital Signs Temp Pulse Resp BP Pulse Ox 100.9 F H 98 H 18 136/79 98 09/22/17 16:37 09/22/17 17:23 09/22/17 16:37 09/22/17 16:37 09/22/17 16:37 Temperature -Last 24 Hours Temperature 100.9 F Temperature 99.9 F Temperature 98.4 F Temperature 98.5 F - Labs CBC & Chem 7: 09/22/17 06:44 09/22/17 06:44 Labs: Abnormal lab results 09/19/17 09/22/17 09/22/17 Range/Units 20:50 06:44 06:44 Hgb 11.7 L (11.8-15.2) gm/dl Hct 34.0 L (35.5-45.6) % [place] % (Auto) 8.5 H (0.0-7.3) % Lymph # 1.1 L (1.2-5.4) K/mm3 Seg Neutrophils % 75.6 H (40.0-70.0) % Potassium 3.4 L (3.6-5.0) mmol/L BUN 6 L (9-20) mg/dL Glucose 104 H (75-100) mg/dL Calcium 7.5 L (8.4-10.2) mg/dL Urine Legionella Ag Detected H (Not Detected)
[2017-09-22] MEDS: LEVAQUIN 750MG/150ML 750 MG/150 ML BAG IV SCH (21:50)
[2017-09-23] MEDS: MORPHINE IV PRN ×2 (00:34→20:02)
[2017-09-23] MEDS: HEPARIN SUB-Q SCH ×3 (06:27→22:24)
[2017-09-23 07:26] LABS: Magnesium 1.9 mg/dL (1.7-2.3)
[2017-09-23] MEDS: GUAIFENESIN DM SYRUP PO PRN ×2 (09:04→13:29)
[2017-09-23] MEDS: PEPCID PO SCH ×2 (09:04→22:23)
[2017-09-23] MEDS: LEVAQUIN 750MG/150ML 750 MG/150 ML BAG IV SCH (09:05)
[2017-09-23] MEDS: TYLENOL PO PRN (09:16)
[2017-09-23] MEDS ORDERED: K-DUR PO NR (09:42)
[2017-09-23] MEDS: ZYVOX 600MG/300ML 600 MG/300 ML BAG IV SCH ×2 (10:43→22:23)
--- NOTE | 2017-09-23 12:40 | Progress Note ---
Assessment and Plan HIV PCR neg Imp: 1. Post-influenza necrotizing MRSA pneumonia + Legionella 2. Acute respiratory failure, hypoxia 3. Sepsis 4. Chronic nicotine dependence, cigarettes 5. Hemoptysis Rec: 1. Continue Zyvox versus MRSA; back on Levaquin given + Legionella urine antigen 2. Has completed 5 days of Tamiflu 3. F/u CXR periodically, again this weekend 4. Stop smoking 5. Monitor for clinical and radiographic improvement, but will need rplonged course of ABX; no utility in bronch given heavy growth of MRSA from the sputum + Legionella positive 6. Complex decision-making Plan of care reviewed with patient, he understands/agrees Subjective Date of service: 09/23/17 Principal diagnosis: persistent fever and worsening PNA Interval history: SOB better but remains on 50% VM. Continues to have purulent blood-tinged sputum. No new complaints. Active Medications Acetaminophen (Tylenol) 650 mg PO Q4H PRN PRN Reason: Pain, Mild (1-3) Last Admin: 09/23/17 09:16 Dose: 650 mg Albuterol (Proventil) 2.5 mg IH Q4HRT PRN PRN Reason: Shortness Of Breath Alprazolam (Xanax) 0.25 mg PO Q8H PRN PRN Reason: Anxiety Famotidine (Pepcid) 20 mg PO BID [facility] Last Admin: 09/23/17 09:04 Dose: 20 mg Guaifenesin (Guaifenesin Dm Syrup) 10 ml PO Q4H PRN PRN Reason: Cough Last Admin: 09/23/17 09:04 Dose: 10 ml Heparin Sodium (Porcine) (Heparin) 5,000 unit SUB-Q Q8HR [facility] Last Admin: 09/23/17 06:27 Dose: 5,000 unit Sodium Chloride (Nacl 0.9% 1000 Ml) 1,000 mls @ 125 mls/hr IV DIRECT [facility] Last Admin: 09/22/17 10:59 Dose: 125 mls/hr Linezolid (Zyvox 600mg/300ml) 600 mg in 300 mls @ 300 mls/hr IV Q12HR [facility] PRN Reason: Protocol Last Admin: 09/23/17 10:43 Dose: 300 mls/hr Levofloxacin/Dextrose (Levaquin 750mg/150ml) 750 mg in 150 mls @ 100 mls/hr IV Q24HR [facility] PRN Reason: Protocol Last Admin: 09/23/17 09:05 Dose: 100 mls/hr Ibuprofen (Motrin) 600 mg PO TID PRN PRN Reason: Pain, Mild (1-3) Last Admin: 09/17/17 16:46 Dose: 600 mg Loratadine/Pseudoephedrine Sulfate (Claritin-D 24hr) 1 each PO Q24HR [facility] Last Admin: 09/22/17 11:29 Dose: 1 each Morphine Sulfate (Morphine) 1 mg IV Q6H PRN PRN Reason: Pain, Moderate (4-6) Last Admin: 09/23/17 00:34 Dose: 1 mg Temazepam (Restoril) 15 mg PO QHS PRN PRN Reason: Sleep Last Admin: 09/21/17 22:28 Dose: 15 mg Objective Vital Signs - 12hr 09/23/17 09/23/17 09/23/17 01:18 06:45 08:22 Temperature 98.9 F 99.2 F 100.4 F H Pulse Rate 101 H 99 H 100 H Respiratory 18 18 18 Rate Blood Pressure 117/62 118/71 123/63 O2 Sat by Pulse 95 96 98 Oximetry 09/23/17 09:23 Temperature Pulse Rate Respiratory Rate Blood Pressure O2 Sat by Pulse 97 Oximetry Constitutional: no acute distress, alert Eyes: non-icteric Neck: supple Effort: normal Ascultation: Right: clear, Left: rhonchi (better) Cardiovascular: regular rate and rhythm (no mrg) Gastrointestinal: normoactive bowel sounds, soft, non-tender, non-distended Integumentary: normal Extremities: no cyanosis, no edema, pink and warm Neurologic: normal mental status, non-focal exam, pupils equal and round, CN II- XII normal Psychiatric: mood appropriate, affect normal CBC and BMP: 09/22/17 06:44 09/23/17 06:10 Abnormal lab findings: Abnormal Labs 09/17/17 09/17/17 09/19/17 00:28 00:28 07:00 WBC 12.0 H 15.1 H Hgb Hct RDW 13.1 L Lymph % (Auto) 8.2 L [place] % (Auto) Lymph # [place] # 1.0 H Seg Neutrophils % 85.1 H Lymphocytes % (Manual) 6.0 L Monocytes % (Manual) 10.0 H Seg Neutrophils # 12.9 H Lymphocytes # (Manual) 0.7 L Monocytes # (Manual) 1.2 H Potassium 3.0 L BUN Glucose 160 H Calcium 8.3 L D C-Reactive Protein Urine Legionella Ag 09/19/17 09/19/17 09/19/17 07:00 07:00 20:50 WBC Hgb Hct RDW Lymph % (Auto) [place] % (Auto) Lymph # [place] # Seg Neutrophils % Lymphocytes % (Manual) Monocytes % (Manual) Seg Neutrophils # Lymphocytes # (Manual) Monocytes # (Manual) Potassium 2.8 L* BUN Glucose 101 H Calcium 7.8 L C-Reactive Protein 19.70 H Urine Legionella Ag Detected H 09/20/17 09/20/17 09/21/17 06:00 06:00 06:20 WBC 11.6 H Hgb Hct RDW Lymph % (Auto) 9.3 L 9.4 L [place] % (Auto) Lymph # 1.1 L 0.8 L [place] # Seg Neutrophils % 84.4 H 83.5 H Lymphocytes % (Manual) Monocytes % (Manual) Seg Neutrophils # 9.8 H Lymphocytes # (Manual) Monocytes # (Manual) Potassium 3.5 L D BUN Glucose 101 H Calcium 7.9 L C-Reactive Protein Urine Legionella Ag 09/21/17 09/22/17 09/22/17 06:20 06:44 06:44 WBC Hgb 11.7 L Hct 34.0 L RDW Lymph % (Auto) [place] % (Auto) 8.5 H Lymph # 1.1 L [place] # Seg Neutrophils % 75.6 H Lymphocytes % (Manual) Monocytes % (Manual) Seg Neutrophils # Lymphocytes # (Manual) Monocytes # (Manual) Potassium 3.2 L 3.4 L BUN 8 L 6 L Glucose 124 H 104 H Calcium 7.6 L 7.5 L C-Reactive Protein Urine Legionella Ag 09/22/17 09/23/17 20:40 06:10 WBC Hgb Hct RDW Lymph % (Auto) [place] % (Auto) Lymph # [place] # Seg Neutrophils % Lymphocytes % (Manual) Monocytes % (Manual) Seg Neutrophils # Lymphocytes # (Manual) Monocytes # (Manual) Potassium 3.3 L BUN Glucose Calcium C-Reactive Protein 14.60 H Urine Legionella Ag Chest x-ray: report reviewed, image reviewed
[2017-09-23] MEDS: CLARITIN-D 24HR PO SCH (13:16)
--- NOTE | 2017-09-23 13:33 | Progress Note ---
Assessment and Plan Assessment: 1) Sepsis: still fever. 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 HAP vs CAP -Sputum +MRSA -LEGIONELLA urine antigen positive -treated with tamiflu x 5 days 3) Acute hypoxia; respiratory failure - not better Plan: -continue zyvox day 4 and levaquin day 2 -very close monitoring I am covering this weekend Payton Deven Subjective Date of service: 09/23/17 Principal diagnosis: persistent fever and worsening PNA Interval history: cough with bloody mucopurulent sputum better, still low grade fever Microbiology: Blood cultures: 09/17 ngtd Urine cultures: Respiratory cultures: sputum 09/19 MRSA Legionella urine antigen POSITIVE Current Antimicrobials: zyvox 09/20 levaquin 09/22 Previous Antimicrobials: Tamiflu Vancomycin 09/17 Azithromycin 09/19 zosyn 09/17 Objective - Exam Narrative Exam: General appearance: in NAD alert talking on HF O2 Eyes: anicteric sclerae, moist conjunctivae; no lid-lag; PERRLA HENT: Atraumatic; oropharynx clear Neck: Trachea midline; supple, no thyromegaly or lymphadenopathy Lungs: scattered crackles CV: RRR, no murmurs Abdomen: Soft, non-tender; +BS x 4 Extremities: contracted Skin: Normal temperature, turgor and texture; no rash, ulcers or subcutaneous nodules Psych: Appropriate affect, cooperative Neuro: alert and oriented x 3. Lines: No CVL / PIC - Constitutional Vitals: Vital Signs Temp Pulse Resp BP Pulse Ox 99.5 F 95 H 18 128/76 100 09/23/17 12:43 09/23/17 13:06 09/23/17 12:43 09/23/17 12:43 09/23/17 12:43 Temperature -Last 24 Hours Temperature 99.5 F Temperature 100.4 F Temperature 99.2 F Temperature 98.9 F Temperature 99.2 F Temperature 100.9 F - Labs CBC & Chem 7: 09/22/17 06:44 09/23/17 06:10 Labs: Abnormal lab results 09/19/17 09/22/17 09/23/17 Range/Units 20:50 20:40 06:10 Potassium 3.3 L (3.6-5.0) mmol/L C-Reactive Protein 14.60 H (0.00-1.30) mg/dL Urine Legionella Ag Detected H (Not Detected)
--- NOTE | 2017-09-23 14:45 | Progress Note ---
Assessment and Plan Assessment and plan: --post influenza MRSA [necrotizing pneumonia ]/Legionella pneumonia Continue Levaquin and Zyvox , cough medicine, respiratory and contact isolation , ID and pulmonary following, Contact isolation, and supportive care --Acute hypoxic respiratory failure requiring BiPAP Now significantly improved, continue nasal cannula oxygen titrated to O2 sats more than 90% --Persistent fevers; secondary to necrotizing pneumonia, significantly improved --Sepsis; continue current management --Possible influenza; influenza AB negative, patient received 5 days of Tamiflu --Hypokalemia; replace per protocol and monitor levels --DVT prophylaxis; with heparin Plan of care discussed with the patient, and his nurse Consults and recommendations noted and appreciated Vision can be transferred out of telemetry to medical floor History Interval history: Patient feels a lot better today but continues to have productive cough Afebrile Alert awake oriented 3 not in acute distress Vital signs reviewed Respiratory and contact isolation Legionella urine antigen positive Hospitalist Physical - Constitutional Vitals: Temp Pulse Resp BP Pulse Ox 99.5 F 95 H 18 128/76 100 09/23/17 12:43 09/23/17 13:06 09/23/17 12:43 09/23/17 12:43 09/23/17 12:43 General appearance: Present: no acute distress, cachectic, disheveled - EENT Eyes: Present: PERRL, EOM intact - Neck Neck: Present: supple, normal ROM - Respiratory Respiratory effort: normal Respiratory: bilateral: diminished, rhonchi, negative: rales, wheezing - Cardiovascular Rhythm: regular Heart Sounds: Present: S1 & S2 - Extremities Extremities: no ischemia, No edema - Abdominal General gastrointestinal: soft, non-tender, non-distended, normal bowel sounds - Integumentary Integumentary: Present: clear, warm - Psychiatric Psychiatric: appropriate mood/affect, cooperative - Neurologic Neurologic: CNII-XII intact, moves all extremities Results - Labs CBC & Chem 7: 09/22/17 06:44 09/23/17 06:10 Labs: Laboratory Last Values WBC 7.3 K/mm3 (4.5-11.0) 09/22/17 06:44 RBC 3.65 M/mm3 (3.65-5.03) 09/22/17 06:44 Hgb 11.7 gm/dl (11.8-15.2) L 09/22/17 06:44 Hct 34.0 % (35.5-45.6) L 09/22/17 06:44 MCV 93 fl (84-94) 09/22/17 06:44 MCH 32 pg (28-32) 09/22/17 06:44 MCHC 34 % (32-34) 09/22/17 06:44 RDW 13.5 % (13.2-15.2) 09/22/17 06:44 Plt Count 194 K/mm3 (140-440) 09/22/17 06:44 Lymph % (Auto) 15.0 % (13.4-35.0) 09/22/17 06:44 [place] % (Auto) 8.5 % (0.0-7.3) H 09/22/17 06:44 Eos % (Auto) 0.6 % (0.0-4.3) 09/22/17 06:44 Baso % (Auto) 0.3 % (0.0-1.8) 09/22/17 06:44 Lymph # 1.1 K/mm3 (1.2-5.4) L 09/22/17 06:44 [place] # 0.6 K/mm3 (0.0-0.8) 09/22/17 06:44 Eos # 0.0 K/mm3 (0.0-0.4) 09/22/17 06:44 Baso # 0.0 K/mm3 (0.0-0.1) 09/22/17 06:44 Add Manual Diff Complete 09/17/17 00:28 Total Counted 100 09/17/17 00:28 Seg Neutrophils % 75.6 % (40.0-70.0) H 09/22/17 06:44 Seg Neuts % (Manual) 41.0 % (40.0-70.0) 09/17/17 00:28 Band Neutrophils % 43.0 % 09/17/17 00:28 Lymphocytes % (Manual) 6.0 % (13.4-35.0) L 09/17/17 00:28 Reactive Lymphs % (Man) 0 % 09/17/17 00:28 Monocytes % (Manual) 10.0 % (0.0-7.3) H 09/17/17 00:28 Eosinophils % (Manual) 0 % (0.0-4.3) 09/17/17 00:28 Basophils % (Manual) 0 % (0.0-1.8) 09/17/17 00:28 Metamyelocytes % 0 % 09/17/17 00:28 Myelocytes % 0 % 09/17/17 00:28 Promyelocytes % 0 % 09/17/17 00:28 Blast Cells % 0 % 09/17/17 00:28 Nucleated RBC % Not Reportable 09/17/17 00:28 Seg Neutrophils # 5.5 K/mm3 (1.8-7.7) 09/22/17 06:44 Seg Neutrophils # Man 4.9 K/mm3 (1.8-7.7) 09/17/17 00:28 Band Neutrophils # 5.2 K/mm3 09/17/17 00:28 Lymphocytes # (Manual) 0.7 K/mm3 (1.2-5.4) L 09/17/17 00:28 Abs React Lymphs (Man) 0.0 K/mm3 09/17/17 00:28 Monocytes # (Manual) 1.2 K/mm3 (0.0-0.8) H 09/17/17 00:28 Eosinophils # (Manual) 0.0 K/mm3 (0.0-0.4) 09/17/17 00:28 Basophils # (Manual) 0.0 K/mm3 (0.0-0.1) 09/17/17 00:28 Metamyelocytes # 0.0 K/mm3 09/17/17 00:28 Myelocytes # 0.0 K/mm3 09/17/17 00:28 Promyelocytes # 0.0 K/mm3 09/17/17 00:28 Blast Cells # 0.0 K/mm3 09/17/17 00:28 WBC Morphology Not Reportable 09/17/17 00:28 Hypersegmented Neuts Not Reportable 09/17/17 00:28 Hyposegmented Neuts Not Reportable 09/17/17 00:28 Hypogranular Neuts Not Reportable 09/17/17 00:28 Smudge Cells Not Reportable 09/17/17 00:28 Toxic Granulation Not Reportable 09/17/17 00:28 Toxic Vacuolation Not Reportable 09/17/17 00:28 Dohle Bodies Not Reportable 01/20/18 00:28 Pelger-Huet Anomaly Not Reportable 09/17/17 00:28 Rufino Rods Not Reportable 09/17/17 00:28 Platelet Estimate Appears normal 09/17/17 00:28 Clumped Platelets Not Reportable 09/17/17 00:28 Plt Clumps, EDTA Not Reportable 09/17/17 00:28 Large Platelets Not Reportable 09/17/17 00:28 Giant Platelets Not Reportable 09/17/17 00:28 Platelet Satelliting Not Reportable 09/17/17 00:28 Plt Morphology Comment Not Reportable 09/17/17 00:28 RBC Morphology Not Reportable 09/17/17 00:28 Dimorphic RBCs Not Reportable 09/17/17 00:28 Polychromasia Not Reportable 09/17/17 00:28 Hypochromasia 1+ 09/17/17 00:28 Poikilocytosis Not Reportable 09/17/17 00:28 Anisocytosis 1+ 09/17/17 00:28 Microcytosis Not Reportable 09/17/17 00:28 Macrocytosis Not Reportable 09/17/17 00:28 Spherocytes Not Reportable 09/17/17 00:28 Pappenheimer Bodies Not Reportable 09/17/17 00:28 Sickle Cells Not Reportable 09/17/17 00:28 Target Cells Not Reportable 09/17/17 00:28 Tear Drop Cells Not Reportable 09/17/17 00:28 Ovalocytes Not Reportable 09/17/17 00:28 Helmet Cells Not Reportable 09/17/17 00:28 [place] Bodies Not Reportable 09/17/17 00:28 [place] Rings Not Reportable 09/17/17 00:28 [place] Cells Not Reportable 09/17/17 00:28 Bite Cells Not Reportable 09/17/17 00:28 Crenated Cell Not Reportable 09/17/17 00:28 Elliptocytes Not Reportable 09/17/17 00:28 Acanthocytes (Spur) Not Reportable 09/17/17 00:28 Rouleaux Not Reportable 09/17/17 00:28 Hemoglobin C Crystals Not Reportable 09/17/17 00:28 Schistocytes Not Reportable 09/17/17 00:28 Malaria parasites Not Reportable 09/17/17 00:28 Flip Bodies Not Reportable 09/17/17 00:28 Hem Pathologist Commnt No 09/17/17 00:28 Sodium 141 mmol/L (137-145) 09/22/17 06:44 Potassium 3.3 mmol/L (3.6-5.0) L 09/23/17 06:10 Chloride 101.5 mmol/L (98-107) 09/22/17 06:44 Carbon Dioxide 26 mmol/L (22-30) 09/22/17 06:44 Anion Gap 17 mmol/L 09/22/17 06:44 BUN 6 mg/dL (9-20) L 09/22/17 06:44 Creatinine 0.8 mg/dL (0.8-1.5) 09/22/17 06:44 Estimated GFR > 60 ml/min 09/22/17 06:44 BUN/Creatinine Ratio 8 % 09/22/17 06:44 Glucose 104 mg/dL (75-100) H 09/22/17 06:44 Lactic Acid 1.30 mmol/L (0.7-2.0) 09/17/17 03:09 Calcium 7.5 mg/dL (8.4-10.2) L 09/22/17 06:44 Magnesium 1.90 mg/dL (1.7-2.3) 09/23/17 06:10 C-Reactive Protein 14.60 mg/dL (0.00-1.30) H 09/22/17 20:40 Vancomycin Trough 6.8 ug/mL (5.0-20.0) 09/19/17 16:35 Urine Legionella Ag Detected (Not Detected) H 09/19/17 20:50
[2017-09-23] MEDS: RESTORIL PO PRN (23:14)
[2017-09-24] MEDS: GUAIFENESIN DM SYRUP PO PRN ×3 (04:25→20:20)
[2017-09-24] MEDS: TYLENOL PO PRN ×2 (05:01→18:04)
[2017-09-24] MEDS: HEPARIN SUB-Q SCH ×3 (06:15→22:00)
[2017-09-24] MEDS: LEVAQUIN 750MG/150ML 750 MG/150 ML BAG IV SCH (09:06)
[2017-09-24] MEDS: PEPCID PO SCH ×2 (09:07→22:27)
[2017-09-24] MEDS: ZYVOX 600MG/300ML 600 MG/300 ML BAG IV SCH ×2 (10:50→22:26)
--- NOTE | 2017-09-24 12:29 | Progress Note ---
Assessment and Plan - Patient Problems (1) MRSA pneumonia Current Visit: Yes Status: Acute (2) Viral syndrome Current Visit: Yes Status: Acute (3) Post viral syndrome Current Visit: Yes Status: Acute (4) Acute respiratory distress Current Visit: Yes Status: Acute (5) Left lower lobe pneumonia Current Visit: No Status: Acute (6) Legionella pneumonia Current Visit: Yes Status: Acute Subjective Principal diagnosis: persistent fever and worsening PNA Interval history: feels slightly better but wants to go home Objective Vital Signs - 12hr 09/24/17 09/24/17 07:54 10:00 Temperature 98.4 F Pulse Rate 89 Respiratory 18 Rate Blood Pressure 122/79 O2 Sat by Pulse 98 98 Oximetry Constitutional: no acute distress, alert Eyes: non-icteric Neck: supple Effort: normal Ascultation: Right: clear, Left: rhonchi (better) Cardiovascular: regular rate and rhythm (no mrg) Gastrointestinal: normoactive bowel sounds, soft, non-tender, non-distended Integumentary: normal Extremities: no cyanosis, no edema, pink and warm Neurologic: normal mental status, non-focal exam, pupils equal and round, CN II- XII normal Psychiatric: mood appropriate, affect normal CBC and BMP: 09/22/17 06:44 09/23/17 06:10 Abnormal lab findings: Abnormal Labs 09/17/17 09/17/17 09/19/17 00:28 00:28 07:00 WBC 12.0 H 15.1 H Hgb Hct RDW 13.1 L Lymph % (Auto) 8.2 L [place] % (Auto) Lymph # [place] # 1.0 H Seg Neutrophils % 85.1 H Lymphocytes % (Manual) 6.0 L Monocytes % (Manual) 10.0 H Seg Neutrophils # 12.9 H Lymphocytes # (Manual) 0.7 L Monocytes # (Manual) 1.2 H Potassium 3.0 L BUN Glucose 160 H Calcium 8.3 L D C-Reactive Protein Urine Legionella Ag 09/19/17 09/19/17 09/19/17 07:00 07:00 20:50 WBC Hgb Hct RDW Lymph % (Auto) [place] % (Auto) Lymph # [place] # Seg Neutrophils % Lymphocytes % (Manual) Monocytes % (Manual) Seg Neutrophils # Lymphocytes # (Manual) Monocytes # (Manual) Potassium 2.8 L* BUN Glucose 101 H Calcium 7.8 L C-Reactive Protein 19.70 H Urine Legionella Ag Detected H 09/20/17 09/20/17 09/21/17 06:00 06:00 06:20 WBC 11.6 H Hgb Hct RDW Lymph % (Auto) 9.3 L 9.4 L [place] % (Auto) Lymph # 1.1 L 0.8 L [place] # Seg Neutrophils % 84.4 H 83.5 H Lymphocytes % (Manual) Monocytes % (Manual) Seg Neutrophils # 9.8 H Lymphocytes # (Manual) Monocytes # (Manual) Potassium 3.5 L D BUN Glucose 101 H Calcium 7.9 L C-Reactive Protein Urine Legionella Ag 09/21/17 09/22/17 09/22/17 06:20 06:44 06:44 WBC Hgb 11.7 L Hct 34.0 L RDW Lymph % (Auto) [place] % (Auto) 8.5 H Lymph # 1.1 L [place] # Seg Neutrophils % 75.6 H Lymphocytes % (Manual) Monocytes % (Manual) Seg Neutrophils # Lymphocytes # (Manual) Monocytes # (Manual) Potassium 3.2 L 3.4 L BUN 8 L 6 L Glucose 124 H 104 H Calcium 7.6 L 7.5 L C-Reactive Protein Urine Legionella Ag 09/22/17 09/23/17 20:40 06:10 WBC Hgb Hct RDW Lymph % (Auto) [place] % (Auto) Lymph # [place] # Seg Neutrophils % Lymphocytes % (Manual) Monocytes % (Manual) Seg Neutrophils # Lymphocytes # (Manual) Monocytes # (Manual) Potassium 3.3 L BUN Glucose Calcium C-Reactive Protein 14.60 H Urine Legionella Ag
--- NOTE | 2017-09-24 12:29 | Progress Note ---
Assessment and Plan Assessment: 1) Sepsis: still fever. 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 HAP vs CAP -Sputum +MRSA -LEGIONELLA urine antigen positive -treated with tamiflu x 5 days 3) Acute hypoxia; respiratory failure - not better Plan: -continue zyvox day 5 and levaquin day 3 -very close monitoring I am covering this weekend, round again on Tuesday Payton Carvalho Subjective Date of service: 09/24/17 Principal diagnosis: persistent fever and worsening PNA Interval history: cough with bloody mucopurulent sputum better, still low grade fever -100.5 Microbiology: Blood cultures: 09/17 ngtd Urine cultures: Respiratory cultures: sputum 09/19 MRSA Legionella urine antigen POSITIVE Current Antimicrobials: zyvox 09/20 levaquin 09/22 Previous Antimicrobials: Tamiflu Vancomycin 09/17 Azithromycin 09/19 zosyn 09/17 Objective - Exam Narrative Exam: General appearance: in NAD alert talking on HF O2 Eyes: anicteric sclerae, moist conjunctivae; no lid-lag; PERRLA HENT: Atraumatic; oropharynx clear Neck: Trachea midline; supple, no thyromegaly or lymphadenopathy Lungs: scattered crackles CV: RRR, no murmurs Abdomen: Soft, non-tender; +BS x 4 Extremities: contracted Skin: Normal temperature, turgor and texture; no rash, ulcers or subcutaneous nodules Psych: Appropriate affect, cooperative Neuro: alert and oriented x 3. Lines: No CVL / PIC - Constitutional Vitals: Vital Signs Temp Pulse Resp BP Pulse Ox 98.4 F 89 18 122/79 98 09/24/17 07:54 09/24/17 07:54 09/24/17 07:54 09/24/17 07:54 09/24/17 10:00 Temperature -Last 24 Hours Temperature 98.4 F Temperature 100.5 F Temperature 97.6 F Temperature 98.7 F Temperature 99.5 F - Labs CBC & Chem 7: 09/22/17 06:44 09/23/17 06:10
--- NOTE | 2017-09-24 15:28 | XRay Report ---
FINAL REPORT EXAM: XR CHEST 1V AP HISTORY: pneumonia TECHNIQUE: Frontal chest radiograph. PRIORS: 09/21/2017 FINDINGS: The cardiomediastinal silhouette is normal. Worsened patchy left mid to lower lung opacities are noted. Patchy opacities in the medial aspect of the right lung base are unchanged. No pleural effusion. No pneumothorax. No acute osseous abnormality. IMPRESSION: Worsened left mid to lower lung pneumonia. Unchanged right lower lobe atelectasis versus pneumonia.
[2017-09-24] MEDS: PROVENTIL IH PRN (15:39)
[2017-09-24] MEDS: MORPHINE IV PRN ×2 (16:40→22:28)
--- NOTE | 2017-09-24 17:48 | Progress Note ---
Assessment and Plan Assessment and plan: --Persistent fevers; secondary to necrotizing pneumonia, ID following --Acute hypoxic respiratory failure requiring BiPAP Now significantly improved, continue nasal cannula oxygen titrated to O2 sats more than 90% --post influenza MRSA [necrotizing pneumonia ]/Legionella pneumonia Continue Levaquin and Zyvox , cough medicine, respiratory and contact isolation , ID and pulmonary following, Contact isolation, and supportive care --Sepsis; continue current management --Possible influenza; influenza AB negative, patient received 5 days of Tamiflu --Hypokalemia; replace per protocol and monitor levels --DVT prophylaxis; with heparin Patient is very concerned about his illness , had many questions answered all of them Plan of care discussed with him and his at the bedside Pulmonary and ID Consults and recommendations noted and appreciated History Interval history: Patient seen and evaluated medical records reviewed Patient continues to have productive cough with pink to brown sputum He remains febrile, MAXIMUM TEMPERATURE handed to Patient is concerned about his illness Alert awake oriented 3 not in mild distress Vital signs reviewed Hospitalist Physical - Constitutional Vitals: Temp Pulse Resp BP Pulse Ox 102.5 F H 97 H 18 134/76 98 09/24/17 15:58 09/24/17 15:58 09/24/17 15:58 09/24/17 15:58 09/24/17 15:58 General appearance: Present: no acute distress, cachectic, disheveled, other ( febrile) - EENT Eyes: Present: PERRL, EOM intact - Neck Neck: Present: supple, normal ROM - Respiratory Respiratory effort: normal Respiratory: bilateral: diminished, rhonchi, negative: rales, wheezing - Cardiovascular Rhythm: regular Heart Sounds: Present: S1 & S2 - Extremities Extremities: no ischemia, No edema - Abdominal General gastrointestinal: soft, non-tender, non-distended, normal bowel sounds - Integumentary Integumentary: Present: clear, warm - Psychiatric Psychiatric: appropriate mood/affect, cooperative - Neurologic Neurologic: CNII-XII intact, moves all extremities Results - Labs CBC & Chem 7: 09/22/17 06:44 09/23/17 06:10 Labs: Laboratory Last Values WBC 7.3 K/mm3 (4.5-11.0) 09/22/17 06:44 RBC 3.65 M/mm3 (3.65-5.03) 09/22/17 06:44 Hgb 11.7 gm/dl (11.8-15.2) L 09/22/17 06:44 Hct 34.0 % (35.5-45.6) L 09/22/17 06:44 MCV 93 fl (84-94) 09/22/17 06:44 MCH 32 pg (28-32) 09/22/17 06:44 MCHC 34 % (32-34) 09/22/17 06:44 RDW 13.5 % (13.2-15.2) 09/22/17 06:44 Plt Count 194 K/mm3 (140-440) 09/22/17 06:44 Lymph % (Auto) 15.0 % (13.4-35.0) 09/22/17 06:44 [place] % (Auto) 8.5 % (0.0-7.3) H 09/22/17 06:44 Eos % (Auto) 0.6 % (0.0-4.3) 09/22/17 06:44 Baso % (Auto) 0.3 % (0.0-1.8) 09/22/17 06:44 Lymph # 1.1 K/mm3 (1.2-5.4) L 09/22/17 06:44 [place] # 0.6 K/mm3 (0.0-0.8) 09/22/17 06:44 Eos # 0.0 K/mm3 (0.0-0.4) 09/22/17 06:44 Baso # 0.0 K/mm3 (0.0-0.1) 09/22/17 06:44 Add Manual Diff Complete 09/17/17 00:28 Total Counted 100 09/17/17 00:28 Seg Neutrophils % 75.6 % (40.0-70.0) H 09/22/17 06:44 Seg Neuts % (Manual) 41.0 % (40.0-70.0) 09/17/17 00:28 Band Neutrophils % 43.0 % 09/17/17 00:28 Lymphocytes % (Manual) 6.0 % (13.4-35.0) L 09/17/17 00:28 Reactive Lymphs % (Man) 0 % 09/17/17 00:28 Monocytes % (Manual) 10.0 % (0.0-7.3) H 09/17/17 00:28 Eosinophils % (Manual) 0 % (0.0-4.3) 09/17/17 00:28 Basophils % (Manual) 0 % (0.0-1.8) 09/17/17 00:28 Metamyelocytes % 0 % 09/17/17 00:28 Myelocytes % 0 % 09/17/17 00:28 Promyelocytes % 0 % 09/17/17 00:28 Blast Cells % 0 % 09/17/17 00:28 Nucleated RBC % Not Reportable 09/17/17 00:28 Seg Neutrophils # 5.5 K/mm3 (1.8-7.7) 09/22/17 06:44 Seg Neutrophils # Man 4.9 K/mm3 (1.8-7.7) 09/17/17 00:28 Band Neutrophils # 5.2 K/mm3 09/17/17 00:28 Lymphocytes # (Manual) 0.7 K/mm3 (1.2-5.4) L 09/17/17 00:28 Abs React Lymphs (Man) 0.0 K/mm3 09/17/17 00:28 Monocytes # (Manual) 1.2 K/mm3 (0.0-0.8) H 09/17/17 00:28 Eosinophils # (Manual) 0.0 K/mm3 (0.0-0.4) 09/17/17 00:28 Basophils # (Manual) 0.0 K/mm3 (0.0-0.1) 09/17/17 00:28 Metamyelocytes # 0.0 K/mm3 09/17/17 00:28 Myelocytes # 0.0 K/mm3 09/17/17 00:28 Promyelocytes # 0.0 K/mm3 09/17/17 00:28 Blast Cells # 0.0 K/mm3 09/17/17 00:28 WBC Morphology Not Reportable 09/17/17 00:28 Hypersegmented Neuts Not Reportable 09/17/17 00:28 Hyposegmented Neuts Not Reportable 09/17/17 00:28 Hypogranular Neuts Not Reportable 09/17/17 00:28 Smudge Cells Not Reportable 09/17/17 00:28 Toxic Granulation Not Reportable 09/17/17 00:28 Toxic Vacuolation Not Reportable 09/17/17 00:28 Dohle Bodies Not Reportable 09/17/17 00:28 Pelger-Huet Anomaly Not Reportable 09/17/17 00:28 Rufino Rods Not Reportable 09/17/17 00:28 Platelet Estimate Appears normal 09/17/17 00:28 Clumped Platelets Not Reportable 09/17/17 00:28 Plt Clumps, EDTA Not Reportable 09/17/17 00:28 Large Platelets Not Reportable 09/17/17 00:28 Giant Platelets Not Reportable 09/17/17 00:28 Platelet Satelliting Not Reportable 09/17/17 00:28 Plt Morphology Comment Not Reportable 09/17/17 00:28 RBC Morphology Not Reportable 09/17/17 00:28 Dimorphic RBCs Not Reportable 09/17/17 00:28 Polychromasia Not Reportable 09/17/17 00:28 Hypochromasia 1+ 09/17/17 00:28 Poikilocytosis Not Reportable 09/17/17 00:28 Anisocytosis 1+ 09/17/17 00:28 Microcytosis Not Reportable 09/17/17 00:28 Macrocytosis Not Reportable 09/17/17 00:28 Spherocytes Not Reportable 09/17/17 00:28 Pappenheimer Bodies Not Reportable 09/17/17 00:28 Sickle Cells Not Reportable 09/17/17 00:28 Target Cells Not Reportable 09/17/17 00:28 Tear Drop Cells Not Reportable 09/17/17 00:28 Ovalocytes Not Reportable 09/17/17 00:28 Helmet Cells Not Reportable 09/17/17 00:28 [place] Bodies Not Reportable 09/17/17 00:28 [place] Rings Not Reportable 09/17/17 00:28 [place] Cells Not Reportable 09/17/17 00:28 Bite Cells Not Reportable 09/17/17 00:28 Crenated Cell Not Reportable 09/17/17 00:28 Elliptocytes Not Reportable 09/17/17 00:28 Acanthocytes (Spur) Not Reportable 09/17/17 00:28 Rouleaux Not Reportable 09/17/17 00:28 Hemoglobin C Crystals Not Reportable 09/17/17 00:28 Schistocytes Not Reportable 09/17/17 00:28 Malaria parasites Not Reportable 09/17/17 00:28 Flip Bodies Not Reportable 09/17/17 00:28 Hem Pathologist Commnt No 09/17/17 00:28 Sodium 141 mmol/L (137-145) 09/22/17 06:44 Potassium 3.3 mmol/L (3.6-5.0) L 09/23/17 06:10 Chloride 101.5 mmol/L (98-107) 09/22/17 06:44 Carbon Dioxide 26 mmol/L (22-30) 09/22/17 06:44 Anion Gap 17 mmol/L 09/22/17 06:44 BUN 6 mg/dL (9-20) L 09/22/17 06:44 Creatinine 0.8 mg/dL (0.8-1.5) 09/22/17 06:44 Estimated GFR > 60 ml/min 09/22/17 06:44 BUN/Creatinine Ratio 8 % 09/22/17 06:44 Glucose 104 mg/dL (75-100) H 09/22/17 06:44 Lactic Acid 1.30 mmol/L (0.7-2.0) 09/17/17 03:09 Calcium 7.5 mg/dL (8.4-10.2) L 09/22/17 06:44 Magnesium 1.90 mg/dL (1.7-2.3) 09/23/17 06:10 C-Reactive Protein 14.60 mg/dL (0.00-1.30) H 09/22/17 20:40 Vancomycin Trough 6.8 ug/mL (5.0-20.0) 09/19/17 16:35 Urine Legionella Ag Detected (Not Detected) H 09/19/17 20:50
[2017-09-24] MEDS ORDERED: NACL 0.9% 1000 ML 1,000 ML with KCL 20 MEQ IV SCH (18:00)
[2017-09-24] MEDS: CLARITIN-D 24HR PO SCH (19:24)
[2017-09-24] MEDS: MOTRIN PO PRN (20:20)
[2017-09-25] MEDS: RESTORIL PO PRN ×2 (00:44→22:48)
[2017-09-25] MEDS: GUAIFENESIN DM SYRUP PO PRN ×2 (00:45→13:53)
[2017-09-25] MEDS: TYLENOL PO PRN ×2 (05:56→13:52)
[2017-09-25] MEDS: HEPARIN SUB-Q SCH ×3 (06:52→22:30)
--- NOTE | 2017-09-25 08:39 | Progress Note ---
Assessment and Plan Assessment and plan: --Acute hypoxic respiratory failure, requiring BiPAP, continue nasal cannula oxygen --MRSA necrotizing pneumonia [post influenza]/Legionella pneumonia, continue Levaquin and Zyvox ID and pulmonary following, follow cultures --Respiratory and contact isolation --Persistent fevers; supportive care --Sepsis; continue current management --Possible influenza; patient received 5 days of Tamiflu --Hypokalemia; replace per protocol and monitor levels --DVT prophylaxis; with heparin Patient's condition treatment plan discussed in detail with the patient and his Answered all their questions, verbalized understanding History Interval history: Patient seen and evaluated medical records reviewed Clinically no change, remains febrile On Levaquin and Zyvox Alert awake oriented 3 mild distress Hospitalist Physical - Constitutional Vitals: Temp Pulse Resp BP Pulse Ox 98.7 F 82 18 103/62 98 09/24/17 22:13 09/24/17 22:13 09/25/17 06:56 09/24/17 22:13 09/25/17 07:44 General appearance: Present: no acute distress, cachectic, disheveled, other ( febrile) - EENT Eyes: Present: PERRL, EOM intact - Neck Neck: Present: supple, normal ROM - Respiratory Respiratory effort: normal Respiratory: bilateral: diminished, rhonchi, negative: rales, wheezing - Cardiovascular Rhythm: regular Heart Sounds: Present: S1 & S2 - Extremities Extremities: no ischemia, No edema - Abdominal General gastrointestinal: soft, non-tender, non-distended, normal bowel sounds - Integumentary Integumentary: Present: clear, warm - Psychiatric Psychiatric: appropriate mood/affect, cooperative - Neurologic Neurologic: CNII-XII intact, moves all extremities Results - Labs CBC & Chem 7: 09/22/17 06:44 09/23/17 06:10 Labs: Laboratory Last Values WBC 7.3 K/mm3 (4.5-11.0) 09/22/17 06:44 RBC 3.65 M/mm3 (3.65-5.03) 09/22/17 06:44 Hgb 11.7 gm/dl (11.8-15.2) L 09/22/17 06:44 Hct 34.0 % (35.5-45.6) L 09/22/17 06:44 MCV 93 fl (84-94) 09/22/17 06:44 MCH 32 pg (28-32) 09/22/17 06:44 MCHC 34 % (32-34) 09/22/17 06:44 RDW 13.5 % (13.2-15.2) 09/22/17 06:44 Plt Count 194 K/mm3 (140-440) 09/22/17 06:44 Lymph % (Auto) 15.0 % (13.4-35.0) 09/22/17 06:44 [place] % (Auto) 8.5 % (0.0-7.3) H 09/22/17 06:44 Eos % (Auto) 0.6 % (0.0-4.3) 09/22/17 06:44 Baso % (Auto) 0.3 % (0.0-1.8) 09/22/17 06:44 Lymph # 1.1 K/mm3 (1.2-5.4) L 09/22/17 06:44 [place] # 0.6 K/mm3 (0.0-0.8) 09/22/17 06:44 Eos # 0.0 K/mm3 (0.0-0.4) 09/22/17 06:44 Baso # 0.0 K/mm3 (0.0-0.1) 09/22/17 06:44 Add Manual Diff Complete 09/17/17 00:28 Total Counted 100 09/17/17 00:28 Seg Neutrophils % 75.6 % (40.0-70.0) H 09/22/17 06:44 Seg Neuts % (Manual) 41.0 % (40.0-70.0) 09/17/17 00:28 Band Neutrophils % 43.0 % 09/17/17 00:28 Lymphocytes % (Manual) 6.0 % (13.4-35.0) L 09/17/17 00:28 Reactive Lymphs % (Man) 0 % 09/17/17 00:28 Monocytes % (Manual) 10.0 % (0.0-7.3) H 09/17/17 00:28 Eosinophils % (Manual) 0 % (0.0-4.3) 09/17/17 00:28 Basophils % (Manual) 0 % (0.0-1.8) 09/17/17 00:28 Metamyelocytes % 0 % 09/17/17 00:28 Myelocytes % 0 % 09/17/17 00:28 Promyelocytes % 0 % 09/17/17 00:28 Blast Cells % 0 % 09/17/17 00:28 Nucleated RBC % Not Reportable 09/17/17 00:28 Seg Neutrophils # 5.5 K/mm3 (1.8-7.7) 09/22/17 06:44 Seg Neutrophils # Man 4.9 K/mm3 (1.8-7.7) 09/17/17 00:28 Band Neutrophils # 5.2 K/mm3 09/17/17 00:28 Lymphocytes # (Manual) 0.7 K/mm3 (1.2-5.4) L 09/17/17 00:28 Abs React Lymphs (Man) 0.0 K/mm3 09/17/17 00:28 Monocytes # (Manual) 1.2 K/mm3 (0.0-0.8) H 09/17/17 00:28 Eosinophils # (Manual) 0.0 K/mm3 (0.0-0.4) 09/17/17 00:28 Basophils # (Manual) 0.0 K/mm3 (0.0-0.1) 09/17/17 00:28 Metamyelocytes # 0.0 K/mm3 09/17/17 00:28 Myelocytes # 0.0 K/mm3 09/17/17 00:28 Promyelocytes # 0.0 K/mm3 09/17/17 00:28 Blast Cells # 0.0 K/mm3 09/17/17 00:28 WBC Morphology Not Reportable 09/17/17 00:28 Hypersegmented Neuts Not Reportable 09/17/17 00:28 Hyposegmented Neuts Not Reportable 09/17/17 00:28 Hypogranular Neuts Not Reportable 09/17/17 00:28 Smudge Cells Not Reportable 09/17/17 00:28 Toxic Granulation Not Reportable 09/17/17 00:28 Toxic Vacuolation Not Reportable 09/17/17 00:28 Dohle Bodies Not Reportable 09/17/17 00:28 Pelger-Huet Anomaly Not Reportable 09/17/17 00:28 Rufino Rods Not Reportable 09/17/17 00:28 Platelet Estimate Appears normal 09/17/17 00:28 Clumped Platelets Not Reportable 09/17/17 00:28 Plt Clumps, EDTA Not Reportable 09/17/17 00:28 Large Platelets Not Reportable 09/17/17 00:28 Giant Platelets Not Reportable 09/17/17 00:28 Platelet Satelliting Not Reportable 09/17/17 00:28 Plt Morphology Comment Not Reportable 09/17/17 00:28 RBC Morphology Not Reportable 09/17/17 00:28 Dimorphic RBCs Not Reportable 09/17/17 00:28 Polychromasia Not Reportable 09/17/17 00:28 Hypochromasia 1+ 09/17/17 00:28 Poikilocytosis Not Reportable 09/17/17 00:28 Anisocytosis 1+ 09/17/17 00:28 Microcytosis Not Reportable 09/17/17 00:28 Macrocytosis Not Reportable 09/17/17 00:28 Spherocytes Not Reportable 09/17/17 00:28 Pappenheimer Bodies Not Reportable 09/17/17 00:28 Sickle Cells Not Reportable 09/17/17 00:28 Target Cells Not Reportable 09/17/17 00:28 Tear Drop Cells Not Reportable 09/17/17 00:28 Ovalocytes Not Reportable 09/17/17 00:28 Helmet Cells Not Reportable 09/17/17 00:28 [place] Bodies Not Reportable 09/17/17 00:28 [place] Rings Not Reportable 09/17/17 00:28 [place] Cells Not Reportable 09/17/17 00:28 Bite Cells Not Reportable 09/17/17 00:28 Crenated Cell Not Reportable 09/17/17 00:28 Elliptocytes Not Reportable 09/17/17 00:28 Acanthocytes (Spur) Not Reportable 09/17/17 00:28 Rouleaux Not Reportable 09/17/17 00:28 Hemoglobin C Crystals Not Reportable 09/17/17 00:28 Schistocytes Not Reportable 09/17/17 00:28 Malaria parasites Not Reportable 09/17/17 00:28 Flip Bodies Not Reportable 09/17/17 00:28 Hem Pathologist Commnt No 09/17/17 00:28 Sodium 141 mmol/L (137-145) 09/22/17 06:44 Potassium 3.3 mmol/L (3.6-5.0) L 09/23/17 06:10 Chloride 101.5 mmol/L (98-107) 09/22/17 06:44 Carbon Dioxide 26 mmol/L (22-30) 09/22/17 06:44 Anion Gap 17 mmol/L 09/22/17 06:44 BUN 6 mg/dL (9-20) L 09/22/17 06:44 Creatinine 0.8 mg/dL (0.8-1.5) 09/22/17 06:44 Estimated GFR > 60 ml/min 09/22/17 06:44 BUN/Creatinine Ratio 8 % 09/22/17 06:44 Glucose 104 mg/dL (75-100) H 09/22/17 06:44 Lactic Acid 1.30 mmol/L (0.7-2.0) 09/17/17 03:09 Calcium 7.5 mg/dL (8.4-10.2) L 09/22/17 06:44 Magnesium 1.90 mg/dL (1.7-2.3) 09/23/17 06:10 C-Reactive Protein 14.60 mg/dL (0.00-1.30) H 09/22/17 20:40 Vancomycin Trough 6.8 ug/mL (5.0-20.0) 09/19/17 16:35 Urine Legionella Ag Detected (Not Detected) H 09/19/17 20:50
[2017-09-25] MEDS: CLARITIN-D 24HR PO SCH (10:03)
--- NOTE | 2017-09-25 13:30 | Progress Note ---
Assessment and Plan - Patient Problems (1) MRSA pneumonia Current Visit: Yes Status: Acute (2) Viral syndrome Current Visit: Yes Status: Acute (3) Post viral syndrome Current Visit: Yes Status: Acute (4) Acute respiratory distress Current Visit: Yes Status: Acute (5) Left lower lobe pneumonia Current Visit: No Status: Acute (6) Legionella pneumonia Current Visit: Yes Status: Acute Subjective Principal diagnosis: persistent fever and worsening PNA Interval history: feels sl better Objective Vital Signs - 12hr 09/25/17 09/25/17 09/25/17 05:56 06:56 07:44 Temperature 98.8 F Pulse Rate 86 Respiratory 18 18 20 Rate Blood Pressure 122/77 O2 Sat by Pulse 98 Oximetry Constitutional: no acute distress, alert Eyes: non-icteric Neck: supple Effort: normal Ascultation: Left: rhonchi (better) Cardiovascular: regular rate and rhythm (no mrg) Gastrointestinal: normoactive bowel sounds, soft, non-tender, non-distended Integumentary: normal Extremities: no cyanosis, no edema, pink and warm Neurologic: normal mental status, non-focal exam, pupils equal and round, CN II- XII normal Psychiatric: mood appropriate, affect normal CBC and BMP: 09/22/17 06:44 09/23/17 06:10 Abnormal lab findings: Abnormal Labs 09/17/17 09/17/17 09/19/17 00:28 00:28 07:00 WBC 12.0 H 15.1 H Hgb Hct RDW 13.1 L Lymph % (Auto) 8.2 L [place] % (Auto) Lymph # [place] # 1.0 H Seg Neutrophils % 85.1 H Lymphocytes % (Manual) 6.0 L Monocytes % (Manual) 10.0 H Seg Neutrophils # 12.9 H Lymphocytes # (Manual) 0.7 L Monocytes # (Manual) 1.2 H Potassium 3.0 L BUN Glucose 160 H Calcium 8.3 L D C-Reactive Protein Urine Legionella Ag 09/19/17 09/19/17 09/19/17 07:00 07:00 20:50 WBC Hgb Hct RDW Lymph % (Auto) [place] % (Auto) Lymph # [place] # Seg Neutrophils % Lymphocytes % (Manual) Monocytes % (Manual) Seg Neutrophils # Lymphocytes # (Manual) Monocytes # (Manual) Potassium 2.8 L* BUN Glucose 101 H Calcium 7.8 L C-Reactive Protein 19.70 H Urine Legionella Ag Detected H 09/20/17 09/20/17 09/21/17 06:00 06:00 06:20 WBC 11.6 H Hgb Hct RDW Lymph % (Auto) 9.3 L 9.4 L [place] % (Auto) Lymph # 1.1 L 0.8 L [place] # Seg Neutrophils % 84.4 H 83.5 H Lymphocytes % (Manual) Monocytes % (Manual) Seg Neutrophils # 9.8 H Lymphocytes # (Manual) Monocytes # (Manual) Potassium 3.5 L D BUN Glucose 101 H Calcium 7.9 L C-Reactive Protein Urine Legionella Ag 09/21/17 09/22/17 09/22/17 06:20 06:44 06:44 WBC Hgb 11.7 L Hct 34.0 L RDW Lymph % (Auto) [place] % (Auto) 8.5 H Lymph # 1.1 L [place] # Seg Neutrophils % 75.6 H Lymphocytes % (Manual) Monocytes % (Manual) Seg Neutrophils # Lymphocytes # (Manual) Monocytes # (Manual) Potassium 3.2 L 3.4 L BUN 8 L 6 L Glucose 124 H 104 H Calcium 7.6 L 7.5 L C-Reactive Protein Urine Legionella Ag 09/22/17 09/23/17 20:40 06:10 WBC Hgb Hct RDW Lymph % (Auto) [place] % (Auto) Lymph # [place] # Seg Neutrophils % Lymphocytes % (Manual) Monocytes % (Manual) Seg Neutrophils # Lymphocytes # (Manual) Monocytes # (Manual) Potassium 3.3 L BUN Glucose Calcium C-Reactive Protein 14.60 H Urine Legionella Ag Chest x-ray: report reviewed, image reviewed
[2017-09-25] MEDS: PEPCID PO SCH ×2 (13:54→22:30)
[2017-09-25] MEDS: ZYVOX 600MG/300ML 600 MG/300 ML BAG IV SCH ×2 (13:55→22:29)
[2017-09-25] MEDS: LEVAQUIN 750MG/150ML 750 MG/150 ML BAG IV SCH (13:55)
[2017-09-26] MEDS: TYLENOL PO PRN (00:04)
[2017-09-26] MEDS: GUAIFENESIN DM SYRUP PO PRN (04:40)
[2017-09-26] MEDS: HEPARIN SUB-Q SCH ×3 (05:03→21:30)
[2017-09-26 05:22] LABS: Basophils % (Auto) 0.4 % (0.0-1.8); Eosinophils % (Auto) 0.5 % (0.0-4.3); Hematocrit 33.8 % (35.5-45.6); Hemoglobin 11.1 gm/dl (11.8-15.2); Lymphocytes # (Auto) 1.3 K/mm3 (1.2-5.4); Lymphocytes % (Auto) 15.2 % (13.4-35.0); Mean Corpuscular HGB Conc 33 % (32-34); Mean Corpuscular Hemoglobin 31 pg (28-32); Mean Corpuscular Volume 95 fl (84-94); Monocytes # (Auto) 0.7 K/mm3 (0.0-0.8); Monocytes % (Auto) 8.2 % (0.0-7.3); Platelet Count 298 K/mm3 (140-440); Red Blood Count 3.56 M/mm3 (3.65-5.03); Red Cell Distribution Width 13.7 % (13.2-15.2)
[2017-09-26 05:33] LABS: BUN/Creatinine Ratio 4; Blood Urea Nitrogen 3 mg/dL (9-20); Calcium 8.2 mg/dL (8.4-10.2); Hemolysis Index 5
[2017-09-26] MEDS: NS/KCL 20MEQ 20 MEQ/1,000 ML BAG IV SCH ×2 (06:55→18:18)
[2017-09-26] MEDS: LEVAQUIN 750MG/150ML 750 MG/150 ML BAG IV SCH (09:09)
[2017-09-26] MEDS: PEPCID PO SCH ×2 (09:10→21:30)
--- NOTE | 2017-09-26 09:29 | Progress Note ---
Assessment and Plan Assessment and plan: --MRSA necrotizing pneumonia [post influenza]/Legionella pneumonia, continue Levaquin and Zyvox ID and pulmonary following, follow cultures --Acute hypoxic respiratory failure, requiring BiPAP, continue nasal cannula oxygen, wean as tolerated --Respiratory and contact isolation --Persistent fevers; supportive care --Sepsis; continue current management --Possible influenza; patient received 5 days of Tamiflu --Hypokalemia; replace per protocol and monitor levels --DVT prophylaxis; with heparin Patient's condition treatment plan discussed in detail with the patient and his Answered all their questions, verbalized understanding Plan of care also discussed with the patient's nurse and case management History Interval history: Patient seen and evaluated this morning medical records reviewed Feels slightly better, however continues to have fever Continues to be hypoxic requiring oxygen Cough with brown sputum Alert awake oriented 3 not in acute distress Chronically ill-looking Hospitalist Physical - Constitutional Vitals: Temp Pulse Resp BP Pulse Ox 99.7 F H 97 H 20 128/87 99 09/26/17 07:27 09/26/17 07:27 09/26/17 07:27 09/26/17 07:27 09/26/17 07:27 General appearance: Present: no acute distress, cachectic, disheveled, other ( febrile) - EENT Eyes: Present: PERRL, EOM intact - Neck Neck: Present: supple, normal ROM - Respiratory Respiratory effort: normal Respiratory: bilateral: diminished, rhonchi, negative: rales, wheezing - Cardiovascular Rhythm: regular Heart Sounds: Present: S1 & S2 - Extremities Extremities: no ischemia, No edema - Abdominal General gastrointestinal: soft, non-tender, non-distended, normal bowel sounds - Integumentary Integumentary: Present: clear, warm - Psychiatric Psychiatric: appropriate mood/affect, cooperative - Neurologic Neurologic: CNII-XII intact, moves all extremities Results - Labs CBC & Chem 7: 09/26/17 04:41 09/26/17 04:41 Labs: Laboratory Last Values WBC 8.5 K/mm3 (4.5-11.0) 09/26/17 04:41 RBC 3.56 M/mm3 (3.65-5.03) L 09/26/17 04:41 Hgb 11.1 gm/dl (11.8-15.2) L 09/26/17 04:41 Hct 33.8 % (35.5-45.6) L 09/26/17 04:41 MCV 95 fl (84-94) H 09/26/17 04:41 MCH 31 pg (28-32) 09/26/17 04:41 MCHC 33 % (32-34) 09/26/17 04:41 RDW 13.7 % (13.2-15.2) 09/26/17 04:41 Plt Count 298 K/mm3 (140-440) 09/26/17 04:41 Lymph % (Auto) 15.2 % (13.4-35.0) 09/26/17 04:41 [place] % (Auto) 8.2 % (0.0-7.3) H 09/26/17 04:41 Eos % (Auto) 0.5 % (0.0-4.3) 09/26/17 04:41 Baso % (Auto) 0.4 % (0.0-1.8) 09/26/17 04:41 Lymph # 1.3 K/mm3 (1.2-5.4) 09/26/17 04:41 [place] # 0.7 K/mm3 (0.0-0.8) 09/26/17 04:41 Eos # 0.0 K/mm3 (0.0-0.4) 09/26/17 04:41 Baso # 0.0 K/mm3 (0.0-0.1) 09/26/17 04:41 Add Manual Diff Complete 09/17/17 00:28 Total Counted 100 09/17/17 00:28 Seg Neutrophils % 75.7 % (40.0-70.0) H 09/26/17 04:41 Seg Neuts % (Manual) 41.0 % (40.0-70.0) 09/17/17 00:28 Band Neutrophils % 43.0 % 09/17/17 00:28 Lymphocytes % (Manual) 6.0 % (13.4-35.0) L 09/17/17 00:28 Reactive Lymphs % (Man) 0 % 09/17/17 00:28 Monocytes % (Manual) 10.0 % (0.0-7.3) H 09/17/17 00:28 Eosinophils % (Manual) 0 % (0.0-4.3) 09/17/17 00:28 Basophils % (Manual) 0 % (0.0-1.8) 09/17/17 00:28 Metamyelocytes % 0 % 09/17/17 00:28 Myelocytes % 0 % 09/17/17 00:28 Promyelocytes % 0 % 09/17/17 00:28 Blast Cells % 0 % 09/17/17 00:28 Nucleated RBC % Not Reportable 09/17/17 00:28 Seg Neutrophils # 6.4 K/mm3 (1.8-7.7) 09/26/17 04:41 Seg Neutrophils # Man 4.9 K/mm3 (1.8-7.7) 09/17/17 00:28 Band Neutrophils # 5.2 K/mm3 09/17/17 00:28 Lymphocytes # (Manual) 0.7 K/mm3 (1.2-5.4) L 09/17/17 00:28 Abs React Lymphs (Man) 0.0 K/mm3 09/17/17 00:28 Monocytes # (Manual) 1.2 K/mm3 (0.0-0.8) H 09/17/17 00:28 Eosinophils # (Manual) 0.0 K/mm3 (0.0-0.4) 09/17/17 00:28 Basophils # (Manual) 0.0 K/mm3 (0.0-0.1) 09/17/17 00:28 Metamyelocytes # 0.0 K/mm3 09/17/17 00:28 Myelocytes # 0.0 K/mm3 09/17/17 00:28 Promyelocytes # 0.0 K/mm3 09/17/17 00:28 Blast Cells # 0.0 K/mm3 09/17/17 00:28 WBC Morphology Not Reportable 09/17/17 00:28 Hypersegmented Neuts Not Reportable 09/17/17 00:28 Hyposegmented Neuts Not Reportable 09/17/17 00:28 Hypogranular Neuts Not Reportable 09/17/17 00:28 Smudge Cells Not Reportable 09/17/17 00:28 Toxic Granulation Not Reportable 09/17/17 00:28 Toxic Vacuolation Not Reportable 09/17/17 00:28 Dohle Bodies Not Reportable 09/17/17 00:28 Pel[place] Anomaly Not Reportable 09/17/17 00:28 Rufino Rods Not Reportable 09/17/17 00:28 Platelet Estimate Appears normal 09/17/17 00:28 Clumped Platelets Not Reportable 09/17/17 00:28 Plt Clumps, EDTA Not Reportable 09/17/17 00:28 Large Platelets Not Reportable 09/17/17 00:28 Giant Platelets Not Reportable 09/17/17 00:28 Platelet Satelliting Not Reportable 09/17/17 00:28 Plt Morphology Comment Not Reportable 09/17/17 00:28 RBC Morphology Not Reportable 09/17/17 00:28 Dimorphic RBCs Not Reportable 09/17/17 00:28 Polychromasia Not Reportable 09/17/17 00:28 Hypochromasia 1+ 09/17/17 00:28 Poikilocytosis Not Reportable 09/17/17 00:28 Anisocytosis 1+ 09/17/17 00:28 Microcytosis Not Reportable 09/17/17 00:28 Macrocytosis Not Reportable 09/17/17 00:28 Spherocytes Not Reportable 09/17/17 00:28 Pappenheimer Bodies Not Reportable 09/17/17 00:28 Sickle Cells Not Reportable 09/17/17 00:28 Target Cells Not Reportable 09/17/17 00:28 Tear Drop Cells Not Reportable 09/17/17 00:28 Ovalocytes Not Reportable 09/17/17 00:28 Helmet Cells Not Reportable 09/17/17 00:28 [place] Bodies Not Reportable 09/17/17 00:28 [place] Rings Not Reportable 09/17/17 00:28 [place] Cells Not Reportable 09/17/17 00:28 Bite Cells Not Reportable 09/17/17 00:28 Crenated Cell Not Reportable 09/17/17 00:28 Elliptocytes Not Reportable 09/17/17 00:28 Acanthocytes (Spur) Not Reportable 09/17/17 00:28 Rouleaux Not Reportable 09/17/17 00:28 Hemoglobin C Crystals Not Reportable 09/17/17 00:28 Schistocytes Not Reportable 09/17/17 00:28 Malaria parasites Not Reportable 09/17/17 00:28 Flip Bodies Not Reportable 09/17/17 00:28 Hem Pathologist Commnt No 09/17/17 00:28 Sodium 141 mmol/L (137-145) 09/26/17 04:41 Potassium 3.7 mmol/L (3.6-5.0) 09/26/17 04:41 Chloride 101.8 mmol/L (98-107) 09/26/17 04:41 Carbon Dioxide 30 mmol/L (22-30) 09/26/17 04:41 Anion Gap 13 mmol/L 09/26/17 04:41 BUN 3 mg/dL (9-20) L 09/26/17 04:41 Creatinine 0.7 mg/dL (0.8-1.5) L 09/26/17 04:41 Estimated GFR > 60 ml/min 09/26/17 04:41 BUN/Creatinine Ratio 4 % 09/26/17 04:41 Glucose 132 mg/dL (75-100) H 09/26/17 04:41 Lactic Acid 1.30 mmol/L (0.7-2.0) 09/17/17 03:09 Calcium 8.2 mg/dL (8.4-10.2) L 09/26/17 04:41 Magnesium 1.80 mg/dL (1.7-2.3) 09/26/17 04:41 C-Reactive Protein 14.60 mg/dL (0.00-1.30) H 09/22/17 20:40 Vancomycin Trough 6.8 ug/mL (5.0-20.0) 09/19/17 16:35 Urine Legionella Ag Detected (Not Detected) H 09/19/17 20:50
[2017-09-26] MEDS: CLARITIN-D 24HR PO SCH (10:00)
[2017-09-26] MEDS: ZYVOX 600MG/300ML 600 MG/300 ML BAG IV SCH ×2 (10:07→21:29)
--- NOTE | 2017-09-26 10:35 | Progress Note ---
Assessment and Plan Assessment: 1) Sepsis: resolving, still fever. 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 HAP vs CAP -Sputum +MRSA -LEGIONELLA urine antigen positive -treated with tamiflu x 5 days -Chest x-ray on 09/24 showed worsening mid to lower lung pneumonia 3) Acute hypoxia; respiratory failure - not better Plan: -continue zyvox day 7 and levaquin day 5 total 21 days -very close monitoring, may need to repeat CT chest to rule out acute bronchiectasis -respiratory following Thank you Dr. Bates, will follow up Gurpreet Stein NP-Tab for Dr. Payton Lutz MD Infectious Diseases Specialist [facility] ([facility]) M [phone] O [phone] Subjective Date of service: 09/26/17 Principal diagnosis: persistent fever and worsening PNA Interval history: I don't feel any better than yesterday, still fever Microbiology: Blood cultures: 09/17 ngtd Urine cultures: Respiratory cultures: sputum 09/19 MRSA Legionella urine antigen POSITIVE Current Antimicrobials: zyvox 09/20 levaquin 09/22 Previous Antimicrobials: Tamiflu Vancomycin 09/17 Azithromycin 09/19 zosyn 09/17 Objective - Exam Narrative Exam: General appearance: SOB Eyes: anicteric sclerae, moist conjunctivae; no lid-lag; PERRLA HENT: Atraumatic; oropharynx clear with moist mucous membranes Neck: Trachea midline; supple, no thyromegaly or lymphadenopathy Lungs: breath sounds diminished bilaterally with ronchi, SOB CV: RRR, no murmurs Abdomen: Soft, non-tender; +BS x 4 Extremities: warm, dry, intact Skin: Normal temperature, turgor and texture; no rash, ulcers or subcutaneous nodules Psych: Appropriate affect, cooperative Neuro: alert and oriented x 3. Lines: No CVL / PIC - Constitutional Vitals: Vital Signs Temp Pulse Resp BP Pulse Ox 99.7 F H 97 H 20 128/87 99 09/26/17 07:27 09/26/17 07:27 09/26/17 07:27 09/26/17 07:27 09/26/17 07:27 Temperature -Last 24 Hours Temperature 99.7 F Temperature 98.3 F Temperature 98.7 F Temperature 101.8 F Temperature 99.8 F - Labs CBC & Chem 7: 09/26/17 04:41 09/26/17 04:41 Labs: Abnormal lab results 09/26/17 09/26/17 Range/Units 04:41 04:41 RBC 3.56 L (3.65-5.03) M/mm3 Hgb 11.1 L (11.8-15.2) gm/dl Hct 33.8 L (35.5-45.6) % MCV 95 H (84-94) fl [place] % (Auto) 8.2 H (0.0-7.3) % Seg Neutrophils % 75.7 H (40.0-70.0) % BUN 3 L (9-20) mg/dL Creatinine 0.7 L (0.8-1.5) mg/dL Glucose 132 H (75-100) mg/dL Calcium 8.2 L (8.4-10.2) mg/dL
--- NOTE | 2017-09-26 12:29 | Progress Note ---
Assessment and Plan 41 y/o male with MRSA pneumonia. 1. Abx therapy per ID 2. Continue supplemental Oxygen and wean for sats >88% 3. OOB to chair as tolerated. 4. No evidence of COPD on CT but former smoker. If no improvement in oxygen requirement, may consider adding steroids. Subjective Date of service: 09/26/17 Principal diagnosis: persistent fever and worsening PNA Interval history: Still requiring venti-mask for marginal sats. Still spiking temps. ID is following. Objective Vital Signs - 12hr 09/26/17 09/26/17 09/26/17 01:43 04:33 07:27 Temperature 98.7 F 98.3 F 99.7 F H Pulse Rate 89 97 H Respiratory 22 20 Rate Blood Pressure 122/78 128/87 O2 Sat by Pulse 97 99 Oximetry Constitutional: no acute distress, alert Eyes: non-icteric Neck: supple Effort: normal Ascultation: Right: clear, Left: rhonchi (better) Cardiovascular: regular rate and rhythm (no mrg) Gastrointestinal: normoactive bowel sounds, soft, non-tender, non-distended Integumentary: normal Extremities: no cyanosis, no edema, pink and warm Neurologic: normal mental status, non-focal exam, pupils equal and round, CN II- XII normal Psychiatric: mood appropriate, affect normal CBC and BMP: 09/26/17 04:41 09/26/17 04:41 Abnormal lab findings: Abnormal Labs 09/17/17 09/17/17 09/19/17 00:28 00:28 07:00 WBC 12.0 H 15.1 H RBC Hgb Hct MCV RDW 13.1 L Lymph % (Auto) 8.2 L [place] % (Auto) Lymph # [place] # 1.0 H Seg Neutrophils % 85.1 H Lymphocytes % (Manual) 6.0 L Monocytes % (Manual) 10.0 H Seg Neutrophils # 12.9 H Lymphocytes # (Manual) 0.7 L Monocytes # (Manual) 1.2 H Potassium 3.0 L BUN Creatinine Glucose 160 H Calcium 8.3 L D C-Reactive Protein Urine Legionella Ag 09/19/17 09/19/17 09/19/17 07:00 07:00 20:50 WBC RBC Hgb Hct MCV RDW Lymph % (Auto) [place] % (Auto) Lymph # [place] # Seg Neutrophils % Lymphocytes % (Manual) Monocytes % (Manual) Seg Neutrophils # Lymphocytes # (Manual) Monocytes # (Manual) Potassium 2.8 L* BUN Creatinine Glucose 101 H Calcium 7.8 L C-Reactive Protein 19.70 H Urine Legionella Ag Detected H 09/20/17 09/20/17 09/21/17 06:00 06:00 06:20 WBC 11.6 H RBC Hgb Hct MCV RDW Lymph % (Auto) 9.3 L 9.4 L [place] % (Auto) Lymph # 1.1 L 0.8 L [place] # Seg Neutrophils % 84.4 H 83.5 H Lymphocytes % (Manual) Monocytes % (Manual) Seg Neutrophils # 9.8 H Lymphocytes # (Manual) Monocytes # (Manual) Potassium 3.5 L D BUN Creatinine Glucose 101 H Calcium 7.9 L C-Reactive Protein Urine Legionella Ag 09/21/17 09/22/17 09/22/17 06:20 06:44 06:44 WBC RBC Hgb 11.7 L Hct 34.0 L MCV RDW Lymph % (Auto) [place] % (Auto) 8.5 H Lymph # 1.1 L [place] # Seg Neutrophils % 75.6 H Lymphocytes % (Manual) Monocytes % (Manual) Seg Neutrophils # Lymphocytes # (Manual) Monocytes # (Manual) Potassium 3.2 L 3.4 L BUN 8 L 6 L Creatinine Glucose 124 H 104 H Calcium 7.6 L 7.5 L C-Reactive Protein Urine Legionella Ag 09/22/17 09/23/17 09/26/17 20:40 06:10 04:41 WBC RBC 3.56 L Hgb 11.1 L Hct 33.8 L MCV 95 H RDW Lymph % (Auto) [place] % (Auto) 8.2 H Lymph # [place] # Seg Neutrophils % 75.7 H Lymphocytes % (Manual) Monocytes % (Manual) Seg Neutrophils # Lymphocytes # (Manual) Monocytes # (Manual) Potassium 3.3 L BUN Creatinine Glucose Calcium C-Reactive Protein 14.60 H Urine Legionella Ag 09/26/17 04:41 WBC RBC Hgb Hct MCV RDW Lymph % (Auto) [place] % (Auto) Lymph # [place] # Seg Neutrophils % Lymphocytes % (Manual) Monocytes % (Manual) Seg Neutrophils # Lymphocytes # (Manual) Monocytes # (Manual) Potassium BUN 3 L Creatinine 0.7 L Glucose 132 H Calcium 8.2 L C-Reactive Protein Urine Legionella Ag
[2017-09-26] MEDS: MORPHINE IV PRN (15:54)
[2017-09-26] MEDS: RESTORIL PO PRN (22:05)
[2017-09-27] MEDS: MORPHINE IV PRN ×2 (03:07→21:02)
[2017-09-27] MEDS: NS/KCL 20MEQ 20 MEQ/1,000 ML BAG IV SCH ×2 (05:15→17:46)
[2017-09-27] MEDS: HEPARIN SUB-Q SCH ×3 (05:15→21:04)
[2017-09-27] MEDS: LEVAQUIN 750MG/150ML 750 MG/150 ML BAG IV SCH (09:18)
[2017-09-27] MEDS: PEPCID PO SCH ×2 (09:19→21:04)
[2017-09-27] MEDS: CLARITIN-D 24HR PO SCH (10:00)
[2017-09-27] MEDS: ZYVOX 600MG/300ML 600 MG/300 ML BAG IV SCH ×2 (10:00→21:04)
--- NOTE | 2017-09-27 10:29 | Progress Note ---
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 HAP vs CAP -Sputum +MRSA -LEGIONELLA urine antigen positive -treated with tamiflu x 5 days -Chest x-ray on 09/24 showed worsening mid to lower lung pneumonia 3) Acute hypoxia; respiratory failure - not better Plan: -continue zyvox day 8 and levaquin day 6 total 21 days until 10/10 -very close monitoring, may need to repeat CT chest to rule out acute bronchiectasis -respiratory following -if fever and hypoxemia resolve in 48 hrs ok to discharge with pulmonary f/u Thank you Dr. Bates, will follow up DIANA Allen for Dr. Payton Lutz MD Infectious Diseases Specialist [facility] ([facility]) M [phone] O [phone] Subjective Date of service: 09/27/17 Principal diagnosis: persistent fever and worsening PNA Interval history: I feel better today than yesterday Microbiology: Blood cultures: 09/17 ngtd Urine cultures: Respiratory cultures: sputum 09/19 MRSA Legionella urine antigen POSITIVE Current Antimicrobials: zyvox 09/20 levaquin 09/22 Previous Antimicrobials: Tamiflu Vancomycin 09/17 Azithromycin 09/19 zosyn 09/17 Objective - Exam Narrative Exam: General appearance: SOB Eyes: anicteric sclerae, moist conjunctivae; no lid-lag; PERRLA HENT: Atraumatic; oropharynx clear with moist mucous membranes Neck: Trachea midline; supple, no thyromegaly or lymphadenopathy Lungs: breath sounds diminished bilaterally with ronchi, SOB CV: RRR, no murmurs Abdomen: Soft, non-tender; +BS x 4 Extremities: warm, dry, intact Skin: Normal temperature, turgor and texture; no rash, ulcers or subcutaneous nodules Psych: Appropriate affect, cooperative Neuro: alert and oriented x 3. Lines: No CVL / PIC - Constitutional Vitals: Vital Signs Temp Pulse Resp BP Pulse Ox 99.6 F 97 H 16 121/72 98 09/26/17 23:22 09/26/17 23:22 09/26/17 23:22 09/26/17 23:22 09/26/17 23:22 Temperature -Last 24 Hours Temperature 99.6 F Temperature 99.9 F - Labs CBC & Chem 7: 09/26/17 04:41 09/26/17 04:41
[2017-09-27] MEDS: MOTRIN PO PRN (11:35)
--- NOTE | 2017-09-27 11:41 | Progress Note ---
Assessment and Plan 41 y/o male with MRSA pneumonia. 1. Abx therapy per ID 2. Continue supplemental Oxygen and wean for sats >88%. Will speak to RT about weaning today. 3. OOB to chair as tolerated. 4. Sats recorded at 99-98%. Will attempt NC today, if not able to tolerate then will consider steroids. Subjective Date of service: 09/27/17 Principal diagnosis: persistent fever and worsening PNA Interval history: Awake and alert. Still on Venti-mask. Comfortable. No sats documented by RT yet this am. Objective Vital Signs - 12hr 09/27/17 08:05 Temperature 99.0 F Pulse Rate 92 H Respiratory 22 Rate Blood Pressure 121/81 O2 Sat by Pulse 98 Oximetry Constitutional: no acute distress, alert Eyes: non-icteric Neck: supple Effort: normal Ascultation: Right: clear, Left: rhonchi (better) Cardiovascular: regular rate and rhythm (no mrg) Gastrointestinal: normoactive bowel sounds, soft, non-tender, non-distended Integumentary: normal Extremities: no cyanosis, no edema, pink and warm Neurologic: normal mental status, non-focal exam, pupils equal and round, CN II- XII normal Psychiatric: mood appropriate, affect normal CBC and BMP: 09/26/17 04:41 09/26/17 04:41 Abnormal lab findings: Abnormal Labs 09/17/17 09/17/17 09/19/17 00:28 00:28 07:00 WBC 12.0 H 15.1 H RBC Hgb Hct MCV RDW 13.1 L Lymph % (Auto) 8.2 L [place] % (Auto) Lymph # [place] # 1.0 H Seg Neutrophils % 85.1 H Lymphocytes % (Manual) 6.0 L Monocytes % (Manual) 10.0 H Seg Neutrophils # 12.9 H Lymphocytes # (Manual) 0.7 L Monocytes # (Manual) 1.2 H Potassium 3.0 L BUN Creatinine Glucose 160 H Calcium 8.3 L D C-Reactive Protein Urine Legionella Ag 09/19/17 09/19/17 09/19/17 07:00 07:00 20:50 WBC RBC Hgb Hct MCV RDW Lymph % (Auto) [place] % (Auto) Lymph # [place] # Seg Neutrophils % Lymphocytes % (Manual) Monocytes % (Manual) Seg Neutrophils # Lymphocytes # (Manual) Monocytes # (Manual) Potassium 2.8 L* BUN Creatinine Glucose 101 H Calcium 7.8 L C-Reactive Protein 19.70 H Urine Legionella Ag Detected H 09/20/17 09/20/17 09/21/17 06:00 06:00 06:20 WBC 11.6 H RBC Hgb Hct MCV RDW Lymph % (Auto) 9.3 L 9.4 L [place] % (Auto) Lymph # 1.1 L 0.8 L [place] # Seg Neutrophils % 84.4 H 83.5 H Lymphocytes % (Manual) Monocytes % (Manual) Seg Neutrophils # 9.8 H Lymphocytes # (Manual) Monocytes # (Manual) Potassium 3.5 L D BUN Creatinine Glucose 101 H Calcium 7.9 L C-Reactive Protein Urine Legionella Ag 09/21/17 09/22/17 09/22/17 06:20 06:44 06:44 WBC RBC Hgb 11.7 L Hct 34.0 L MCV RDW Lymph % (Auto) [place] % (Auto) 8.5 H Lymph # 1.1 L [place] # Seg Neutrophils % 75.6 H Lymphocytes % (Manual) Monocytes % (Manual) Seg Neutrophils # Lymphocytes # (Manual) Monocytes # (Manual) Potassium 3.2 L 3.4 L BUN 8 L 6 L Creatinine Glucose 124 H 104 H Calcium 7.6 L 7.5 L C-Reactive Protein Urine Legionella Ag 09/22/17 09/23/17 09/26/17 20:40 06:10 04:41 WBC RBC 3.56 L Hgb 11.1 L Hct 33.8 L MCV 95 H RDW Lymph % (Auto) [place] % (Auto) 8.2 H Lymph # [place] # Seg Neutrophils % 75.7 H Lymphocytes % (Manual) Monocytes % (Manual) Seg Neutrophils # Lymphocytes # (Manual) Monocytes # (Manual) Potassium 3.3 L BUN Creatinine Glucose Calcium C-Reactive Protein 14.60 H Urine Legionella Ag 09/26/17 04:41 WBC RBC Hgb Hct MCV RDW Lymph % (Auto) [place] % (Auto) Lymph # [place] # Seg Neutrophils % Lymphocytes % (Manual) Monocytes % (Manual) Seg Neutrophils # Lymphocytes # (Manual) Monocytes # (Manual) Potassium BUN 3 L Creatinine 0.7 L Glucose 132 H Calcium 8.2 L C-Reactive Protein Urine Legionella Ag
--- NOTE | 2017-09-27 17:48 | Progress Note ---
Assessment and Plan Assessment and plan: --Acute hypoxic respiratory failure, requiring BiPAP, Ventimask, wean as tolerated Titrate O2 sats more than 90% , requiring 6 L nasal cannula oxygen, wean as tolerated Evaluate for home oxygen, --MRSA necrotizing pneumonia [post influenza]/Legionella pneumonia, on Levaquin and Zyvox ID and pulmonary following, supportive care --Respiratory and contact isolation --Persistent fevers; max last 24 hours 99.9 F,supportive care --Sepsis; continue current management --Possible influenza; patient received 5 days of Tamiflu --Hypokalemia; replace per protocol and monitor levels --DVT prophylaxis; with heparin Out of bed to chair, ambulate as tolerated, physical therapy evaluation and treatment Consults recommendations noted and appreciated Plan of care discussed with the patient and his nurse, History Interval history: Sincerely and examined medical records reviewed Feels slightly better ,still on oxygen Alert awake oriented 3 Vital signs reviewed Hospitalist Physical - Constitutional Vitals: Temp Pulse Resp BP Pulse Ox 99.0 F 92 H 22 121/81 98 09/27/17 08:05 09/27/17 08:05 09/27/17 08:05 09/27/17 08:05 09/27/17 08:05 General appearance: Present: no acute distress, cachectic, disheveled, other ( febrile) - EENT Eyes: Present: PERRL, EOM intact - Neck Neck: Present: supple, normal ROM - Respiratory Respiratory effort: normal Respiratory: bilateral: diminished, rhonchi, negative: rales, wheezing - Cardiovascular Rhythm: regular Heart Sounds: Present: S1 & S2 - Extremities Extremities: no ischemia, No edema - Abdominal General gastrointestinal: soft, non-tender, non-distended, normal bowel sounds - Integumentary Integumentary: Present: clear, warm - Psychiatric Psychiatric: appropriate mood/affect, cooperative - Neurologic Neurologic: CNII-XII intact, moves all extremities Results - Labs CBC & Chem 7: 09/26/17 04:41 09/26/17 04:41 Labs: Laboratory Last Values WBC 8.5 K/mm3 (4.5-11.0) 09/26/17 04:41 RBC 3.56 M/mm3 (3.65-5.03) L 09/26/17 04:41 Hgb 11.1 gm/dl (11.8-15.2) L 09/26/17 04:41 Hct 33.8 % (35.5-45.6) L 09/26/17 04:41 MCV 95 fl (84-94) H 09/26/17 04:41 MCH 31 pg (28-32) 09/26/17 04:41 MCHC 33 % (32-34) 09/26/17 04:41 RDW 13.7 % (13.2-15.2) 09/26/17 04:41 Plt Count 298 K/mm3 (140-440) 09/26/17 04:41 Lymph % (Auto) 15.2 % (13.4-35.0) 09/26/17 04:41 [place] % (Auto) 8.2 % (0.0-7.3) H 09/26/17 04:41 Eos % (Auto) 0.5 % (0.0-4.3) 09/26/17 04:41 Baso % (Auto) 0.4 % (0.0-1.8) 09/26/17 04:41 Lymph # 1.3 K/mm3 (1.2-5.4) 09/26/17 04:41 [place] # 0.7 K/mm3 (0.0-0.8) 09/26/17 04:41 Eos # 0.0 K/mm3 (0.0-0.4) 09/26/17 04:41 Baso # 0.0 K/mm3 (0.0-0.1) 09/26/17 04:41 Add Manual Diff Complete 09/17/17 00:28 Total Counted 100 09/17/17 00:28 Seg Neutrophils % 75.7 % (40.0-70.0) H 09/26/17 04:41 Seg Neuts % (Manual) 41.0 % (40.0-70.0) 09/17/17 00:28 Band Neutrophils % 43.0 % 09/17/17 00:28 Lymphocytes % (Manual) 6.0 % (13.4-35.0) L 09/17/17 00:28 Reactive Lymphs % (Man) 0 % 09/17/17 00:28 Monocytes % (Manual) 10.0 % (0.0-7.3) H 09/17/17 00:28 Eosinophils % (Manual) 0 % (0.0-4.3) 09/17/17 00:28 Basophils % (Manual) 0 % (0.0-1.8) 09/17/17 00:28 Metamyelocytes % 0 % 09/17/17 00:28 Myelocytes % 0 % 09/17/17 00:28 Promyelocytes % 0 % 09/17/17 00:28 Blast Cells % 0 % 09/17/17 00:28 Nucleated RBC % Not Reportable 09/17/17 00:28 Seg Neutrophils # 6.4 K/mm3 (1.8-7.7) 09/26/17 04:41 Seg Neutrophils # Man 4.9 K/mm3 (1.8-7.7) 09/17/17 00:28 Band Neutrophils # 5.2 K/mm3 09/17/17 00:28 Lymphocytes # (Manual) 0.7 K/mm3 (1.2-5.4) L 09/17/17 00:28 Abs React Lymphs (Man) 0.0 K/mm3 09/17/17 00:28 Monocytes # (Manual) 1.2 K/mm3 (0.0-0.8) H 09/17/17 00:28 Eosinophils # (Manual) 0.0 K/mm3 (0.0-0.4) 09/17/17 00:28 Basophils # (Manual) 0.0 K/mm3 (0.0-0.1) 09/17/17 00:28 Metamyelocytes # 0.0 K/mm3 09/17/17 00:28 Myelocytes # 0.0 K/mm3 09/17/17 00:28 Promyelocytes # 0.0 K/mm3 09/17/17 00:28 Blast Cells # 0.0 K/mm3 09/17/17 00:28 WBC Morphology Not Reportable 09/17/17 00:28 Hypersegmented Neuts Not Reportable 09/17/17 00:28 Hyposegmented Neuts Not Reportable 09/17/17 00:28 Hypogranular Neuts Not Reportable 09/17/17 00:28 Smudge Cells Not Reportable 09/17/17 00:28 Toxic Granulation Not Reportable 09/17/17 00:28 Toxic Vacuolation Not Reportable 09/17/17 00:28 Dohle Bodies Not Reportable 09/17/17 00:28 Pelger-Huet Anomaly Not Reportable 09/17/17 00:28 Rufino Rods Not Reportable 09/17/17 00:28 Platelet Estimate Appears normal 09/17/17 00:28 Clumped Platelets Not Reportable 09/17/17 00:28 Plt Clumps, EDTA Not Reportable 09/17/17 00:28 Large Platelets Not Reportable 09/17/17 00:28 Giant Platelets Not Reportable 09/17/17 00:28 Platelet Satelliting Not Reportable 09/17/17 00:28 Plt Morphology Comment Not Reportable 09/17/17 00:28 RBC Morphology Not Reportable 09/17/17 00:28 Dimorphic RBCs Not Reportable 09/17/17 00:28 Polychromasia Not Reportable 09/17/17 00:28 Hypochromasia 1+ 09/17/17 00:28 Poikilocytosis Not Reportable 09/17/17 00:28 Anisocytosis 1+ 09/17/17 00:28 Microcytosis Not Reportable 09/17/17 00:28 Macrocytosis Not Reportable 09/17/17 00:28 Spherocytes Not Reportable 09/17/17 00:28 Pappenheimer Bodies Not Reportable 09/17/17 00:28 Sickle Cells Not Reportable 09/17/17 00:28 Target Cells Not Reportable 09/17/17 00:28 Tear Drop Cells Not Reportable 09/17/17 00:28 Ovalocytes Not Reportable 09/17/17 00:28 Helmet Cells Not Reportable 09/17/17 00:28 [place] Bodies Not Reportable 09/17/17 00:28 [place] Rings Not Reportable 09/17/17 00:28 [place]iera Cells Not Reportable 09/17/17 00:28 Bite Cells Not Reportable 09/17/17 00:28 Crenated Cell Not Reportable 09/17/17 00:28 Elliptocytes Not Reportable 09/17/17 00:28 Acanthocytes (Spur) Not Reportable 09/17/17 00:28 Rouleaux Not Reportable 09/17/17 00:28 Hemoglobin C Crystals Not Reportable 09/17/17 00:28 Schistocytes Not Reportable 09/17/17 00:28 Malaria parasites Not Reportable 09/17/17 00:28 Flip Bodies Not Reportable 09/17/17 00:28 Hem Pathologist Commnt No 09/17/17 00:28 Sodium 141 mmol/L (137-145) 09/26/17 04:41 Potassium 3.7 mmol/L (3.6-5.0) 09/26/17 04:41 Chloride 101.8 mmol/L (98-107) 09/26/17 04:41 Carbon Dioxide 30 mmol/L (22-30) 09/26/17 04:41 Anion Gap 13 mmol/L 09/26/17 04:41 BUN 3 mg/dL (9-20) L 09/26/17 04:41 Creatinine 0.7 mg/dL (0.8-1.5) L 09/26/17 04:41 Estimated GFR > 60 ml/min 09/26/17 04:41 BUN/Creatinine Ratio 4 % 09/26/17 04:41 Glucose 132 mg/dL (75-100) H 09/26/17 04:41 Lactic Acid 1.30 mmol/L (0.7-2.0) 09/17/17 03:09 Calcium 8.2 mg/dL (8.4-10.2) L 09/26/17 04:41 Magnesium 1.80 mg/dL (1.7-2.3) 09/26/17 04:41 Troponin T < 0.010 ng/mL (0.00-0.029) 09/26/17 18:01 C-Reactive Protein 14.60 mg/dL (0.00-1.30) H 09/22/17 20:40 Vancomycin Trough 6.8 ug/mL (5.0-20.0) 09/19/17 16:35 Urine Legionella Ag Detected (Not Detected) H 09/19/17 20:50
[2017-09-27] MEDS: RESTORIL PO PRN (21:04)
[2017-09-28] MEDS: GUAIFENESIN DM SYRUP PO PRN (04:05)
[2017-09-28] MEDS: HEPARIN SUB-Q SCH ×3 (05:36→21:58)
[2017-09-28] MEDS: NS/KCL 20MEQ 20 MEQ/1,000 ML BAG IV SCH ×2 (05:36→18:20)
--- NOTE | 2017-09-28 10:24 | Progress Note ---
Assessment and Plan Assessment: 1) Sepsis: still tachycardia. 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 HAP vs CAP -Sputum +MRSA -LEGIONELLA urine antigen positive -treated with tamiflu x 5 days -Chest x-ray on 09/24 showed worsening mid to lower lung pneumonia 3) Acute hypoxia; respiratory failure - not better Plan: -continue zyvox day 9 and levaquin day 7 total 21 days until 10/10. will change to po today -respiratory following -upon discharge f/u with pulmonary we will sigm off Thank you Dr. Bates, will follow up Gurpreet Stein NP-C for Dr. Payton Lutz MD Infectious Diseases Specialist [facility], [place] ([facility]) M [phone] O [phone] Subjective Date of service: 09/28/17 Principal diagnosis: persistent fever and worsening PNA Interval history: I feel better and don't like the after effect of morphine Microbiology: Blood cultures: 09/17 ngtd Urine cultures: Respiratory cultures: sputum 09/19 MRSA Legionella urine antigen POSITIVE Current Antimicrobials: zyvox 09/20 levaquin 09/22 Previous Antimicrobials: Tamiflu Vancomycin 09/17 Azithromycin 09/19 zosyn 09/17 Objective - Exam Narrative Exam: General appearance: SOB Eyes: anicteric sclerae, moist conjunctivae; no lid-lag; PERRLA HENT: Atraumatic; oropharynx clear with moist mucous membranes Neck: Trachea midline; supple, no thyromegaly or lymphadenopathy Lungs: breath sounds diminished bilaterally with ronchi, SOB CV: RRR, no murmurs Abdomen: Soft, non-tender; +BS x 4 Extremities: warm, dry, intact Skin: Normal temperature, turgor and texture; no rash, ulcers or subcutaneous nodules Psych: Appropriate affect, cooperative Neuro: alert and oriented x 3. Lines: No CVL / PIC - Constitutional Vitals: Vital Signs Temp Pulse Resp BP Pulse Ox 99.7 F H 100 H 18 119/76 98 09/28/17 07:16 09/28/17 07:16 09/28/17 07:16 09/28/17 07:16 09/28/17 08:38 Temperature -Last 24 Hours Temperature 99.7 F Temperature 98.9 F - Labs CBC & Chem 7: 09/26/17 04:41 09/26/17 04:41
[2017-09-28] MEDS: PEPCID PO SCH ×2 (10:54→21:57)
[2017-09-28] MEDS: ZYVOX 600MG/300ML 600 MG/300 ML BAG IV SCH (10:54)
[2017-09-28] MEDS: LEVAQUIN 750MG/150ML 750 MG/150 ML BAG IV SCH (10:54)
[2017-09-28] MEDS: CLARITIN-D 24HR PO SCH (11:30)
[2017-09-28] MEDS: MOTRIN PO PRN ×2 (11:30→21:58)
--- NOTE | 2017-09-28 12:25 | Progress Note ---
Assessment and Plan 41 y/o male with MRSA pneumonia. 1. Abx therapy per ID, reviewed their note from yesterday. 2. Continue supplemental Oxygen and wean for sats >88%. Now down to nasal cannula 3. OOB to chair as tolerated. 4. Hold on steroids for right now 5. Smoking cessation 6. Will attempt to wean oxygen to off prior to discharge. Suggest CM consult, if patient needs O2, will be a challenge as he is unfunded. Subjective Date of service: 09/28/17 Principal diagnosis: persistent fever and worsening PNA Interval history: Down to 6 liter NC. Sat documented at 98% Objective Vital Signs - 12hr 09/28/17 09/28/17 07:16 08:38 Temperature 99.7 F H Pulse Rate 100 H Respiratory 18 Rate Blood Pressure 119/76 O2 Sat by Pulse 98 98 Oximetry Constitutional: no acute distress, alert Eyes: non-icteric Neck: supple Effort: normal Ascultation: Right: clear, Left: rhonchi (better) Cardiovascular: regular rate and rhythm (no mrg) Gastrointestinal: normoactive bowel sounds, soft, non-tender, non-distended Integumentary: normal Extremities: no cyanosis, no edema, pink and warm Neurologic: normal mental status, non-focal exam, pupils equal and round, CN II- XII normal Psychiatric: mood appropriate, affect normal CBC and BMP: 09/26/17 04:41 09/26/17 04:41 Abnormal lab findings: Abnormal Labs 09/17/17 09/17/17 09/19/17 00:28 00:28 07:00 WBC 12.0 H 15.1 H RBC Hgb Hct MCV RDW 13.1 L Lymph % (Auto) 8.2 L [place] % (Auto) Lymph # [place] # 1.0 H Seg Neutrophils % 85.1 H Lymphocytes % (Manual) 6.0 L Monocytes % (Manual) 10.0 H Seg Neutrophils # 12.9 H Lymphocytes # (Manual) 0.7 L Monocytes # (Manual) 1.2 H Potassium 3.0 L BUN Creatinine Glucose 160 H Calcium 8.3 L D C-Reactive Protein Urine Legionella Ag 09/19/17 09/19/17 09/19/17 07:00 07:00 20:50 WBC RBC Hgb Hct MCV RDW Lymph % (Auto) [place] % (Auto) Lymph # [place] # Seg Neutrophils % Lymphocytes % (Manual) Monocytes % (Manual) Seg Neutrophils # Lymphocytes # (Manual) Monocytes # (Manual) Potassium 2.8 L* BUN Creatinine Glucose 101 H Calcium 7.8 L C-Reactive Protein 19.70 H Urine Legionella Ag Detected H 09/20/17 09/20/17 09/21/17 06:00 06:00 06:20 WBC 11.6 H RBC Hgb Hct MCV RDW Lymph % (Auto) 9.3 L 9.4 L [place] % (Auto) Lymph # 1.1 L 0.8 L [place] # Seg Neutrophils % 84.4 H 83.5 H Lymphocytes % (Manual) Monocytes % (Manual) Seg Neutrophils # 9.8 H Lymphocytes # (Manual) Monocytes # (Manual) Potassium 3.5 L D BUN Creatinine Glucose 101 H Calcium 7.9 L C-Reactive Protein Urine Legionella Ag 09/21/17 09/22/17 09/22/17 06:20 06:44 06:44 WBC RBC Hgb 11.7 L Hct 34.0 L MCV RDW Lymph % (Auto) [place] % (Auto) 8.5 H Lymph # 1.1 L [place] # Seg Neutrophils % 75.6 H Lymphocytes % (Manual) Monocytes % (Manual) Seg Neutrophils # Lymphocytes # (Manual) Monocytes # (Manual) Potassium 3.2 L 3.4 L BUN 8 L 6 L Creatinine Glucose 124 H 104 H Calcium 7.6 L 7.5 L C-Reactive Protein Urine Legionella Ag 09/22/17 09/23/17 09/26/17 20:40 06:10 04:41 WBC RBC 3.56 L Hgb 11.1 L Hct 33.8 L MCV 95 H RDW Lymph % (Auto) [place] % (Auto) 8.2 H Lymph # [place] # Seg Neutrophils % 75.7 H Lymphocytes % (Manual) Monocytes % (Manual) Seg Neutrophils # Lymphocytes # (Manual) Monocytes # (Manual) Potassium 3.3 L BUN Creatinine Glucose Calcium C-Reactive Protein 14.60 H Urine Legionella Ag 09/26/17 04:41 WBC RBC Hgb Hct MCV RDW Lymph % (Auto) [place] % (Auto) Lymph # [place] # Seg Neutrophils % Lymphocytes % (Manual) Monocytes % (Manual) Seg Neutrophils # Lymphocytes # (Manual) Monocytes # (Manual) Potassium BUN 3 L Creatinine 0.7 L Glucose 132 H Calcium 8.2 L C-Reactive Protein Urine Legionella Ag
[2017-09-28] MEDS: ZYVOX PO SCH (21:57)
[2017-09-28] MEDS: RESTORIL PO PRN (21:57)
[2017-09-29] MEDS: NS/KCL 20MEQ 20 MEQ/1,000 ML BAG IV SCH ×2 (02:11→13:49)
[2017-09-29] MEDS: GUAIFENESIN DM SYRUP PO PRN ×2 (03:20→22:24)
[2017-09-29] MEDS: HEPARIN SUB-Q SCH ×3 (07:00→22:24)
--- NOTE | 2017-09-29 10:01 | Progress Note ---
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]/Legionella pneumonia, on Levaquin and Zyvox ID and pulmonary following, supportive care --Respiratory and contact isolation --Persistent fevers; max last 24 hours 99.9 F,supportive care --Sepsis; continue current management --Possible influenza; patient received 5 days of Tamiflu --Hypokalemia; replace per protocol and monitor levels --DVT prophylaxis; with heparin Out of bed to chair, ambulate as tolerated, physical therapy evaluation and treatment Consults recommendations noted and appreciated Plan of care discussed with the patient and his nurse, possible discharged home tomorrow if stable History Interval history: Patient seen and evaluated medical records reviewed Feels slightly better no new complaints Alert awake oriented 3 in no acute distress Vital signs, patient is afebrile Hospitalist Physical - Constitutional Vitals: Temp Pulse Resp BP Pulse Ox 98.4 F 74 18 162/104 100 09/29/17 07:41 09/29/17 07:41 09/29/17 07:41 09/29/17 07:41 09/29/17 07:41 General appearance: Present: no acute distress, well-nourished - EENT Eyes: Present: PERRL, EOM intact - Neck Neck: Present: supple, normal ROM - Respiratory Respiratory effort: normal Respiratory: bilateral: diminished, rhonchi, negative: rales, wheezing - Cardiovascular Rhythm: regular Heart Sounds: Present: S1 & S2 - Extremities Extremities: no ischemia, No edema Peripheral Pulses: within normal limits - Abdominal General gastrointestinal: soft, non-tender, non-distended, normal bowel sounds - Integumentary Integumentary: Present: clear, warm - Psychiatric Psychiatric: appropriate mood/affect, cooperative - Neurologic Neurologic: CNII-XII intact, moves all extremities Results - Labs CBC & Chem 7: 09/26/17 04:41 09/26/17 04:41 Labs: Laboratory Last Values WBC 8.5 K/mm3 (4.5-11.0) 09/26/17 04:41 RBC 3.56 M/mm3 (3.65-5.03) L 09/26/17 04:41 Hgb 11.1 gm/dl (11.8-15.2) L 09/26/17 04:41 Hct 33.8 % (35.5-45.6) L 09/26/17 04:41 MCV 95 fl (84-94) H 09/26/17 04:41 MCH 31 pg (28-32) 09/26/17 04:41 MCHC 33 % (32-34) 09/26/17 04:41 RDW 13.7 % (13.2-15.2) 09/26/17 04:41 Plt Count 298 K/mm3 (140-440) 09/26/17 04:41 Lymph % (Auto) 15.2 % (13.4-35.0) 09/26/17 04:41 [place] % (Auto) 8.2 % (0.0-7.3) H 09/26/17 04:41 Eos % (Auto) 0.5 % (0.0-4.3) 09/26/17 04:41 Baso % (Auto) 0.4 % (0.0-1.8) 09/26/17 04:41 Lymph # 1.3 K/mm3 (1.2-5.4) 09/26/17 04:41 [place] # 0.7 K/mm3 (0.0-0.8) 09/26/17 04:41 Eos # 0.0 K/mm3 (0.0-0.4) 09/26/17 04:41 Baso # 0.0 K/mm3 (0.0-0.1) 09/26/17 04:41 Add Manual Diff Complete 09/17/17 00:28 Total Counted 100 09/17/17 00:28 Seg Neutrophils % 75.7 % (40.0-70.0) H 09/26/17 04:41 Seg Neuts % (Manual) 41.0 % (40.0-70.0) 09/17/17 00:28 Band Neutrophils % 43.0 % 09/17/17 00:28 Lymphocytes % (Manual) 6.0 % (13.4-35.0) L 09/17/17 00:28 Reactive Lymphs % (Man) 0 % 09/17/17 00:28 Monocytes % (Manual) 10.0 % (0.0-7.3) H 09/17/17 00:28 Eosinophils % (Manual) 0 % (0.0-4.3) 09/17/17 00:28 Basophils % (Manual) 0 % (0.0-1.8) 09/17/17 00:28 Metamyelocytes % 0 % 09/17/17 00:28 Myelocytes % 0 % 09/17/17 00:28 Promyelocytes % 0 % 09/17/17 00:28 Blast Cells % 0 % 09/17/17 00:28 Nucleated RBC % Not Reportable 09/17/17 00:28 Seg Neutrophils # 6.4 K/mm3 (1.8-7.7) 09/26/17 04:41 Seg Neutrophils # Man 4.9 K/mm3 (1.8-7.7) 09/17/17 00:28 Band Neutrophils # 5.2 K/mm3 09/17/17 00:28 Lymphocytes # (Manual) 0.7 K/mm3 (1.2-5.4) L 09/17/17 00:28 Abs React Lymphs (Man) 0.0 K/mm3 09/17/17 00:28 Monocytes # (Manual) 1.2 K/mm3 (0.0-0.8) H 09/17/17 00:28 Eosinophils # (Manual) 0.0 K/mm3 (0.0-0.4) 09/17/17 00:28 Basophils # (Manual) 0.0 K/mm3 (0.0-0.1) 09/17/17 00:28 Metamyelocytes # 0.0 K/mm3 09/17/17 00:28 Myelocytes # 0.0 K/mm3 09/17/17 00:28 Promyelocytes # 0.0 K/mm3 09/17/17 00:28 Blast Cells # 0.0 K/mm3 09/17/17 00:28 WBC Morphology Not Reportable 09/17/17 00:28 Hypersegmented Neuts Not Reportable 09/17/17 00:28 Hyposegmented Neuts Not Reportable 09/17/17 00:28 Hypogranular Neuts Not Reportable 09/17/17 00:28 Smudge Cells Not Reportable 09/17/17 00:28 Toxic Granulation Not Reportable 09/17/17 00:28 Toxic Vacuolation Not Reportable 09/17/17 00:28 Dohle Bodies Not Reportable 09/17/17 00:28 Pelger-Huet Anomaly Not Reportable 09/17/17 00:28 Rufino Rods Not Reportable 09/17/17 00:28 Platelet Estimate Appears normal 09/17/17 00:28 Clumped Platelets Not Reportable 09/17/17 00:28 Plt Clumps, EDTA Not Reportable 09/17/17 00:28 Large Platelets Not Reportable 09/17/17 00:28 Giant Platelets Not Reportable 09/17/17 00:28 Platelet Satelliting Not Reportable 09/17/17 00:28 Plt Morphology Comment Not Reportable 09/17/17 00:28 RBC Morphology Not Reportable 09/17/17 00:28 Dimorphic RBCs Not Reportable 09/17/17 00:28 Polychromasia Not Reportable 09/17/17 00:28 Hypochromasia 1+ 09/17/17 00:28 Poikilocytosis Not Reportable 09/17/17 00:28 Anisocytosis 1+ 09/17/17 00:28 Microcytosis Not Reportable 09/17/17 00:28 Macrocytosis Not Reportable 09/17/17 00:28 Spherocytes Not Reportable 09/17/17 00:28 Pappenheimer Bodies Not Reportable 09/17/17 00:28 Sickle Cells Not Reportable 09/17/17 00:28 Target Cells Not Reportable 09/17/17 00:28 Tear Drop Cells Not Reportable 09/17/17 00:28 Ovalocytes Not Reportable 09/17/17 00:28 Helmet Cells Not Reportable 09/17/17 00:28 [place] Bodies Not Reportable 09/17/17 00:28 [place] Rings Not Reportable 09/17/17 00:28 [place]iera Cells Not Reportable 09/17/17 00:28 Bite Cells Not Reportable 09/17/17 00:28 Crenated Cell Not Reportable 09/17/17 00:28 Elliptocytes Not Reportable 09/17/17 00:28 Acanthocytes (Spur) Not Reportable 09/17/17 00:28 Rouleaux Not Reportable 09/17/17 00:28 Hemoglobin C Crystals Not Reportable 09/17/17 00:28 Schistocytes Not Reportable 09/17/17 00:28 Malaria parasites Not Reportable 09/17/17 00:28 Flip Bodies Not Reportable 09/17/17 00:28 Hem Pathologist Commnt No 09/17/17 00:28 Sodium 141 mmol/L (137-145) 09/26/17 04:41 Potassium 3.7 mmol/L (3.6-5.0) 09/26/17 04:41 Chloride 101.8 mmol/L (98-107) 09/26/17 04:41 Carbon Dioxide 30 mmol/L (22-30) 09/26/17 04:41 Anion Gap 13 mmol/L 09/26/17 04:41 BUN 3 mg/dL (9-20) L 09/26/17 04:41 Creatinine 0.7 mg/dL (0.8-1.5) L 09/26/17 04:41 Estimated GFR > 60 ml/min 09/26/17 04:41 BUN/Creatinine Ratio 4 % 09/26/17 04:41 Glucose 132 mg/dL (75-100) H 09/26/17 04:41 Lactic Acid 1.30 mmol/L (0.7-2.0) 09/17/17 03:09 Calcium 8.2 mg/dL (8.4-10.2) L 09/26/17 04:41 Magnesium 1.80 mg/dL (1.7-2.3) 09/26/17 04:41 Troponin T < 0.010 ng/mL (0.00-0.029) 09/26/17 18:01 C-Reactive Protein 14.60 mg/dL (0.00-1.30) H 09/22/17 20:40 Vancomycin Trough 6.8 ug/mL (5.0-20.0) 09/19/17 16:35 Urine Legionella Ag Detected (Not Detected) H 09/19/17 20:50
[2017-09-29] MEDS: ZYVOX PO SCH ×2 (10:48→22:24)
[2017-09-29] MEDS: PEPCID PO SCH ×2 (10:48→22:24)
[2017-09-29] MEDS: LEVAQUIN PO SCH (10:49)
[2017-09-29] MEDS: CLARITIN-D 24HR PO SCH (10:50)
--- NOTE | 2017-09-29 13:37 | Progress Note ---
Assessment and Plan 41 y/o male with MRSA pneumonia. 1. Abx therapy per ID, reviewed their note from yesterday. 2. Continue supplemental Oxygen and wean for sats >88%. Now down to nasal cannula and now down to room air. 3. OOB to chair as tolerated. 4. Hold on steroids for right now, does not need at discharge. 5. Smoking cessation 6. No need to repeat imaging prior to discharge with improved clinical state 7. No objection to discharge as stated by ID in their note 8. Will sign off, call if questions. Patient can follow up with ID and PCP. Smoking cessation encouraged. Subjective Date of service: 09/29/17 Principal diagnosis: persistent fever and worsening PNA Interval history: Patient weaned to room air. Good sats. Objective Vital Signs - 12hr 09/29/17 09/29/17 09/29/17 07:41 10:00 11:00 Temperature 98.4 F Pulse Rate 74 Respiratory 18 Rate Blood Pressure 162/104 O2 Sat by Pulse 100 93 97 Oximetry 09/29/17 09/29/17 12:14 12:36 Temperature 98.9 F Pulse Rate 98 H Respiratory 18 Rate Blood Pressure 121/80 O2 Sat by Pulse 95 95 Oximetry Constitutional: no acute distress, alert Eyes: non-icteric Neck: supple Effort: normal Ascultation: Right: clear, Left: rhonchi (better) Cardiovascular: regular rate and rhythm (no mrg) Gastrointestinal: normoactive bowel sounds, soft, non-tender, non-distended Integumentary: normal Extremities: no cyanosis, no edema, pink and warm Neurologic: normal mental status, non-focal exam, pupils equal and round, CN II- XII normal Psychiatric: mood appropriate, affect normal CBC and BMP: 09/26/17 04:41 09/26/17 04:41 Abnormal lab findings: Abnormal Labs 09/17/17 09/17/17 09/19/17 00:28 00:28 07:00 WBC 12.0 H 15.1 H RBC Hgb Hct MCV RDW 13.1 L Lymph % (Auto) 8.2 L [place] % (Auto) Lymph # [place] # 1.0 H Seg Neutrophils % 85.1 H Lymphocytes % (Manual) 6.0 L Monocytes % (Manual) 10.0 H Seg Neutrophils # 12.9 H Lymphocytes # (Manual) 0.7 L Monocytes # (Manual) 1.2 H Potassium 3.0 L BUN Creatinine Glucose 160 H Calcium 8.3 L D C-Reactive Protein Urine Legionella Ag 09/19/17 09/19/17 09/19/17 07:00 07:00 20:50 WBC RBC Hgb Hct MCV RDW Lymph % (Auto) [place] % (Auto) Lymph # [place] # Seg Neutrophils % Lymphocytes % (Manual) Monocytes % (Manual) Seg Neutrophils # Lymphocytes # (Manual) Monocytes # (Manual) Potassium 2.8 L* BUN Creatinine Glucose 101 H Calcium 7.8 L C-Reactive Protein 19.70 H Urine Legionella Ag Detected H 09/20/17 09/20/17 09/21/17 06:00 06:00 06:20 WBC 11.6 H RBC Hgb Hct MCV RDW Lymph % (Auto) 9.3 L 9.4 L [place] % (Auto) Lymph # 1.1 L 0.8 L [place] # Seg Neutrophils % 84.4 H 83.5 H Lymphocytes % (Manual) Monocytes % (Manual) Seg Neutrophils # 9.8 H Lymphocytes # (Manual) Monocytes # (Manual) Potassium 3.5 L D BUN Creatinine Glucose 101 H Calcium 7.9 L C-Reactive Protein Urine Legionella Ag 09/21/17 09/22/17 09/22/17 06:20 06:44 06:44 WBC RBC Hgb 11.7 L Hct 34.0 L MCV RDW Lymph % (Auto) [place] % (Auto) 8.5 H Lymph # 1.1 L [place] # Seg Neutrophils % 75.6 H Lymphocytes % (Manual) Monocytes % (Manual) Seg Neutrophils # Lymphocytes # (Manual) Monocytes # (Manual) Potassium 3.2 L 3.4 L BUN 8 L 6 L Creatinine Glucose 124 H 104 H Calcium 7.6 L 7.5 L C-Reactive Protein Urine Legionella Ag 09/22/17 09/23/17 09/26/17 20:40 06:10 04:41 WBC RBC 3.56 L Hgb 11.1 L Hct 33.8 L MCV 95 H RDW Lymph % (Auto) [place] % (Auto) 8.2 H Lymph # [place] # Seg Neutrophils % 75.7 H Lymphocytes % (Manual) Monocytes % (Manual) Seg Neutrophils # Lymphocytes # (Manual) Monocytes # (Manual) Potassium 3.3 L BUN Creatinine Glucose Calcium C-Reactive Protein 14.60 H Urine Legionella Ag 09/26/17 04:41 WBC RBC Hgb Hct MCV RDW Lymph % (Auto) [place] % (Auto) Lymph # [place] # Seg Neutrophils % Lymphocytes % (Manual) Monocytes % (Manual) Seg Neutrophils # Lymphocytes # (Manual) Monocytes # (Manual) Potassium BUN 3 L Creatinine 0.7 L Glucose 132 H Calcium 8.2 L C-Reactive Protein Urine Legionella Ag
[2017-09-29] MEDS: MOTRIN PO PRN (13:42)
[2017-09-29] MEDS: PROVENTIL IH PRN (14:08)
--- NOTE | 2017-09-29 16:55 | Discharge Summary ---
Providers - Providers Date of Admission: 09/17/17 05:07 Date of discharge: 09/30/17 Attending physician: CARLYLE BILL 09/17/17 05:52 Consult to Physician [CONS] Routine Consulting Provider: ROB CARBAJAL Reason For Exam: worsening pneumonia Place consult to:: Dr. Carbajal Notified:: Answering Service Phone number called:: [phone] Was contact made?: Yes If yes, spoke with:: Joy Time called:: 05:54 09/18/17 17:02 Consult to Physician [CONS] Routine Consulting Provider: ELBA DE ANDA Reason For Exam: persistent fever/worsening pneumonia Place consult to:: id Notified:: yes Was contact made?: Yes If yes, spoke with:: Dr Carvalho 09/28/17 10:26 Consult to Case Management [CONS] Routine Services Needed at Discharge: Other Notified:: yes Was contact made?: Yes Comment:: please assist patient order given to CM Additional Physician Instructions: zyvox 600 mg po BID and levaquin 750 mg po daily total 21 days until 10/10 Primary care physician: LAVERN OLEARY Hospitalization Condition: Serious Hospital course: Home oxygen assessment ; patient is not a candidate for home oxygen 02 sat rm air at rest 99%; 02 sat rm air during ambulation 96%; 02 sat after ambulation 96%. Disposition: - TO HOME OR SELFCARE Time spent for discharge: 34 min Core Measure Documentation - Palliative Care Palliative Care/ Comfort Measures: Not Applicable - Core Measures Any of the following diagnoses?: none Exam - Constitutional Vitals: Temp Pulse Resp BP Pulse Ox 98.5 F 83 18 153/91 98 09/29/17 16:08 09/29/17 16:08 09/29/17 16:08 09/29/17 16:08 09/29/17 16:08 General appearance: Present: no acute distress, well-nourished - EENT Eyes: Present: PERRL, EOM intact - Neck Neck: Present: supple, normal ROM - Respiratory Respiratory effort: normal Respiratory: bilateral: diminished, rhonchi, negative: rales, wheezing - Cardiovascular Rhythm: regular Heart Sounds: Present: S1 & S2 - Extremities Extremities: no ischemia, No edema Peripheral Pulses: within normal limits - Abdominal General gastrointestinal: Present: soft, non-tender, non-distended, normal bowel sounds - Integumentary Integumentary: Present: clear, warm - Musculoskeletal Musculoskeletal: strength equal bilaterally - Psychiatric Psychiatric: appropriate mood/affect, cooperative - Neurologic Neurologic: CNII-XII intact, moves all extremities Plan Activity: advance as tolerated Diet: regular Additional Instructions: Observe Contact isolation, until you see primary care physician. cover your mouth when you cough or sneeze/wear mask as needed Follow up with: LAVERN OLEARY MD [Primary Care Provider] - 7 Days JOHN YOU MD [Staff Physician] - 7 Days LINDA ROY MD [Staff Physician] - 7 Days Prescriptions: ALBUTEROL Inhaler [ProAir HFA Inhaler] 2 puff IH QID PRN #1 inhalation PRN Reason: Shortness Of Breath Famotidine [Pepcid] 20 mg PO BID #30 tablet guaiFENesin DM [Guaifenesin Dm Syrup] 10 ml PO Q4H PRN 10 Days oral.liqd PRN Reason: Cough Ibuprofen [Motrin 600 MG tab] 600 mg PO TID PRN #15 tablet PRN Reason: Pain, Mild (1-3) Levofloxacin [Levaquin TAB] 750 mg PO Q24HR #13 tablet Linezolid [Zyvox] 600 mg PO Q12HR #22 tablet Loratadine/Pseudoephedrine [Claritin-D 24HR] 1 each PO Q24HR #10 tablet
--- NOTE | 2017-09-29 18:59 | Progress Note ---
Assessment and Plan Assessment and plan: --MRSA post influenza necrotizing pneumonia/Legionella pneumonia Symptoms significantly improved, continue Zyvox and Levaquin but ideally Oxygen therapy due to O2 sats more than 90%, order fluids, IV fluids supportive care Respiratory and contact isolation, ID and pulmonary following Patient is requiring 6 L of nasal cannula oxygen Home oxygen evaluation when more stable --Persistent fevers; improved, max last 24 hours 99.9 F,supportive care --Sepsis; continue current management --Possible influenza; patient received 5 days of Tamiflu --Hypokalemia; replace per protocol and monitor levels --DVT prophylaxis; with heparin Out of bed to chair, ambulate as tolerated, physical therapy evaluation and treatment Consults recommendations noted and appreciated Plan of care discussed with the patient and his nurse, History Interval history: Patient seen and examined medical records reviewed Patient continues to have productive cough positive for want of expected isn't significantly decreased no new complaints, afebrile Vital signs reviewed Hospitalist Physical - Constitutional Vitals: Temp Pulse Resp BP Pulse Ox 98.5 F 83 18 153/91 98 09/29/17 16:08 09/29/17 16:08 09/29/17 16:08 09/29/17 16:08 09/29/17 16:08 General appearance: Present: no acute distress, well-nourished - EENT Eyes: Present: PERRL, EOM intact - Neck Neck: Present: supple, normal ROM - Respiratory Respiratory effort: normal Respiratory: bilateral: diminished, rhonchi, negative: rales, wheezing - Cardiovascular Rhythm: regular Heart Sounds: Present: S1 & S2 - Extremities Extremities: no ischemia, No edema - Abdominal General gastrointestinal: soft, non-tender, non-distended, normal bowel sounds - Integumentary Integumentary: Present: clear, warm - Psychiatric Psychiatric: appropriate mood/affect, cooperative - Neurologic Neurologic: CNII-XII intact, moves all extremities Results - Labs CBC & Chem 7: 09/26/17 04:41 09/26/17 04:41 Labs: Laboratory Last Values WBC 8.5 K/mm3 (4.5-11.0) 09/26/17 04:41 RBC 3.56 M/mm3 (3.65-5.03) L 09/26/17 04:41 Hgb 11.1 gm/dl (11.8-15.2) L 09/26/17 04:41 Hct 33.8 % (35.5-45.6) L 09/26/17 04:41 MCV 95 fl (84-94) H 09/26/17 04:41 MCH 31 pg (28-32) 09/26/17 04:41 MCHC 33 % (32-34) 09/26/17 04:41 RDW 13.7 % (13.2-15.2) 09/26/17 04:41 Plt Count 298 K/mm3 (140-440) 09/26/17 04:41 Lymph % (Auto) 15.2 % (13.4-35.0) 09/26/17 04:41 [place] % (Auto) 8.2 % (0.0-7.3) H 09/26/17 04:41 Eos % (Auto) 0.5 % (0.0-4.3) 09/26/17 04:41 Baso % (Auto) 0.4 % (0.0-1.8) 09/26/17 04:41 Lymph # 1.3 K/mm3 (1.2-5.4) 09/26/17 04:41 [place] # 0.7 K/mm3 (0.0-0.8) 09/26/17 04:41 Eos # 0.0 K/mm3 (0.0-0.4) 09/26/17 04:41 Baso # 0.0 K/mm3 (0.0-0.1) 09/26/17 04:41 Add Manual Diff Complete 09/17/17 00:28 Total Counted 100 09/17/17 00:28 Seg Neutrophils % 75.7 % (40.0-70.0) H 09/26/17 04:41 Seg Neuts % (Manual) 41.0 % (40.0-70.0) 09/17/17 00:28 Band Neutrophils % 43.0 % 09/17/17 00:28 Lymphocytes % (Manual) 6.0 % (13.4-35.0) L 09/17/17 00:28 Reactive Lymphs % (Man) 0 % 09/17/17 00:28 Monocytes % (Manual) 10.0 % (0.0-7.3) H 09/17/17 00:28 Eosinophils % (Manual) 0 % (0.0-4.3) 09/17/17 00:28 Basophils % (Manual) 0 % (0.0-1.8) 09/17/17 00:28 Metamyelocytes % 0 % 09/17/17 00:28 Myelocytes % 0 % 09/17/17 00:28 Promyelocytes % 0 % 09/17/17 00:28 Blast Cells % 0 % 09/17/17 00:28 Nucleated RBC % Not Reportable 09/17/17 00:28 Seg Neutrophils # 6.4 K/mm3 (1.8-7.7) 09/26/17 04:41 Seg Neutrophils # Man 4.9 K/mm3 (1.8-7.7) 09/17/17 00:28 Band Neutrophils # 5.2 K/mm3 09/17/17 00:28 Lymphocytes # (Manual) 0.7 K/mm3 (1.2-5.4) L 09/17/17 00:28 Abs React Lymphs (Man) 0.0 K/mm3 09/17/17 00:28 Monocytes # (Manual) 1.2 K/mm3 (0.0-0.8) H 09/17/17 00:28 Eosinophils # (Manual) 0.0 K/mm3 (0.0-0.4) 09/17/17 00:28 Basophils # (Manual) 0.0 K/mm3 (0.0-0.1) 09/17/17 00:28 Metamyelocytes # 0.0 K/mm3 09/17/17 00:28 Myelocytes # 0.0 K/mm3 09/17/17 00:28 Promyelocytes # 0.0 K/mm3 09/17/17 00:28 Blast Cells # 0.0 K/mm3 09/17/17 00:28 WBC Morphology Not Reportable 09/17/17 00:28 Hypersegmented Neuts Not Reportable 09/17/17 00:28 Hyposegmented Neuts Not Reportable 09/17/17 00:28 Hypogranular Neuts Not Reportable 09/17/17 00:28 Smudge Cells Not Reportable 09/17/17 00:28 Toxic Granulation Not Reportable 09/17/17 00:28 Toxic Vacuolation Not Reportable 09/17/17 00:28 Dohle Bodies Not Reportable 09/17/17 00:28 [place] Anomaly Not Reportable 09/17/17 00:28 Rufino Rods Not Reportable 09/17/17 00:28 Platelet Estimate Appears normal 09/17/17 00:28 Clumped Platelets Not Reportable 09/17/17 00:28 Plt Clumps, EDTA Not Reportable 09/17/17 00:28 Large Platelets Not Reportable 09/17/17 00:28 Giant Platelets Not Reportable 09/17/17 00:28 Platelet Satelliting Not Reportable 09/17/17 00:28 Plt Morphology Comment Not Reportable 09/17/17 00:28 RBC Morphology Not Reportable 09/17/17 00:28 Dimorphic RBCs Not Reportable 09/17/17 00:28 Polychromasia Not Reportable 09/17/17 00:28 Hypochromasia 1+ 09/17/17 00:28 Poikilocytosis Not Reportable 09/17/17 00:28 Anisocytosis 1+ 09/17/17 00:28 Microcytosis Not Reportable 09/17/17 00:28 Macrocytosis Not Reportable 09/17/17 00:28 Spherocytes Not Reportable 09/17/17 00:28 Pappenheimer Bodies Not Reportable 09/17/17 00:28 Sickle Cells Not Reportable 09/17/17 00:28 Target Cells Not Reportable 09/17/17 00:28 Tear Drop Cells Not Reportable 09/17/17 00:28 Ovalocytes Not Reportable 09/17/17 00:28 Helmet Cells Not Reportable 09/17/17 00:28 [place] Bodies Not Reportable 09/17/17 00:28 [place] Rings Not Reportable 09/17/17 00:28 [place] Cells Not Reportable 09/17/17 00:28 Bite Cells Not Reportable 09/17/17 00:28 Crenated Cell Not Reportable 09/17/17 00:28 Elliptocytes Not Reportable 09/17/17 00:28 Acanthocytes (Spur) Not Reportable 09/17/17 00:28 Rouleaux Not Reportable 09/17/17 00:28 Hemoglobin C Crystals Not Reportable 09/17/17 00:28 Schistocytes Not Reportable 09/17/17 00:28 Malaria parasites Not Reportable 09/17/17 00:28 Flip Bodies Not Reportable 09/17/17 00:28 Hem Pathologist Commnt No 09/17/17 00:28 Sodium 141 mmol/L (137-145) 09/26/17 04:41 Potassium 3.7 mmol/L (3.6-5.0) 09/26/17 04:41 Chloride 101.8 mmol/L (98-107) 09/26/17 04:41 Carbon Dioxide 30 mmol/L (22-30) 09/26/17 04:41 Anion Gap 13 mmol/L 09/26/17 04:41 BUN 3 mg/dL (9-20) L 09/26/17 04:41 Creatinine 0.7 mg/dL (0.8-1.5) L 09/26/17 04:41 Estimated GFR > 60 ml/min 09/26/17 04:41 BUN/Creatinine Ratio 4 % 09/26/17 04:41 Glucose 132 mg/dL (75-100) H 09/26/17 04:41 Lactic Acid 1.30 mmol/L (0.7-2.0) 09/17/17 03:09 Calcium 8.2 mg/dL (8.4-10.2) L 09/26/17 04:41 Magnesium 1.80 mg/dL (1.7-2.3) 09/26/17 04:41 Troponin T < 0.010 ng/mL (0.00-0.029) 09/26/17 18:01 C-Reactive Protein 14.60 mg/dL (0.00-1.30) H 09/22/17 20:40 Vancomycin Trough 6.8 ug/mL (5.0-20.0) 09/19/17 16:35 Urine Legionella Ag Detected (Not Detected) H 09/19/17 20:50
[2017-09-29] MEDS: RESTORIL PO PRN (22:24)
[2017-09-30] MEDS: GUAIFENESIN DM SYRUP PO PRN (05:40)
[2017-09-30] MEDS: NS/KCL 20MEQ 20 MEQ/1,000 ML BAG IV SCH ×2 (05:40→12:05)
[2017-09-30] MEDS: HEPARIN SUB-Q SCH ×2 (05:40→14:00)
[2017-09-30] MEDS: MOTRIN PO PRN ×2 (08:45→16:31)
[2017-09-30 08:57] LABS: BUN/Creatinine Ratio 9; Blood Urea Nitrogen 6 mg/dL (9-20); Calcium 8.8 mg/dL (8.4-10.2); Hemolysis Index 9
[2017-09-30] MEDS: ZYVOX PO SCH (11:00)
[2017-09-30] MEDS: LEVAQUIN PO SCH (11:00)
[2017-09-30] MEDS: PEPCID PO SCH (11:00)
[2017-09-30] MEDS: CLARITIN-D 24HR PO SCH (12:06)
[2017-09-30 17:07] VITALS: BP 143/98
== END 2017-09-30 17:30 | disposition home or self-care (01) | DRG 871 ==
LOC: ED 23:39 → CC1 09-17 05:07 → 4A 09-17 10:43 → 3A 09-23 16:35
PROVIDERS: ADMIT Internal Medicine; ATTEND Internal Medicine
PROC: 5A09357 Assistance with Respiratory Ventilation, Less than 24 Consecutive Hours, Continuous Positive Airway Pressure (ICD-10-PCS; principal; 2017-09-23)
DX: A41.9 Sepsis, unspecified organism (principal); J96.01 Acute respiratory failure with hypoxia; J10.08 Influenza due to other identified influenza virus with other specified pneumonia; Z82.49 Family history of ischemic heart disease and other diseases of the circulatory system; E87.6 Hypokalemia; F17.210 Nicotine dependence, cigarettes, uncomplicated
CPT/HCPCS: 36415; 71045; 71270; 80048; 80202; 82140; 82962; 83735; 84132; 84484; 85007; 85025; 86140; 86403; 87040; 87070; 87076; 87086; 87186; 87205; 87449; 93005; 93010; 94640; 94644; 94660; 94760; 96361; 96365; 96375; 99291; J0456; J1644; J1956; J2020; J2270; J2543; J2930; J3370; J3480; J7030; J7040; J7050

== ENCOUNTER 2017-10-07 19:59 | Emergency (ER) | payer OTHER ==
[2017-10-07 23:06] LABS: Basophils # (Auto) 0.1 K/mm3 (0.0-0.1); Basophils % (Auto) 1.1 % (0.0-1.8); Eosinophils # (Auto) 0.1 K/mm3 (0.0-0.4); Eosinophils % (Auto) 0.8 % (0.0-4.3); Hematocrit 37.1 % (35.5-45.6); Hemoglobin 12.6 gm/dl (11.8-15.2); Lymphocytes # (Auto) 2.2 K/mm3 (1.2-5.4); Lymphocytes % (Auto) 20.5 % (13.4-35.0); Mean Corpuscular HGB Conc 34 % (32-34); Mean Corpuscular Hemoglobin 32 pg (28-32); Mean Corpuscular Volume 94 fl (84-94); Monocytes # (Auto) 0.6 K/mm3 (0.0-0.8); Monocytes % (Auto) 5.2 % (0.0-7.3); Platelet Count 449 K/mm3 (140-440); Red Blood Count 3.96 M/mm3 (3.65-5.03); Red Cell Distribution Width 13.5 % (13.2-15.2)
[2017-10-07 23:18] LABS: BUN/Creatinine Ratio 6; Blood Urea Nitrogen 5 mg/dL (9-20); Calcium 9.2 mg/dL (8.4-10.2); Hemolysis Index 6
--- NOTE | 2017-10-07 23:24 | XRay Report ---
FINAL REPORT PROCEDURE: XR CHEST ROUTINE 2V TECHNIQUE: PA and lateral chest radiographs were obtained. CPT 55857 HISTORY: Shortness of breath COMPARISON: Prior chest x-ray 09/24/2017 FINDINGS: Compared to the prior exam a diffuse infiltrate in the lower half of the left lung has decreased considerably in density although there is still moderate diffuse patchy infiltrate remaining. No effusions are identified. There is improved aeration in the infiltrate in the right lower lobe as well. Heart size and pulmonary vasculature appear normal. No acute bony abnormalities are seen. IMPRESSION: Bilateral infiltrates have improved since the prior study although have not resolved. No other abnormalities are identified.
[2017-10-08] MEDS ORDERED: NACL 0.9% 1000 ML 1,000 ML IV ONE (06:36)
--- NOTE | 2017-10-08 06:44 | Emergency Department Report ---
ED Shortness of Breath HPI - General Chief Complaint: Dyspnea/Respdistress Stated Complaint: SOB Time Seen by Provider: 10/08/17 06:07 Source: patient Mode of arrival: Stretcher Limitations: No Limitations - History of Present Illness Initial Comments: 41-year-old male with no significant past medical history who was recently admitted to the hospital September 17 until September 30 for post influenza bilateral pneumonia (necrotizing MRSA pneumonia and Legionella) presents to the hospital complaining of shortness of breath that worsened last night at 7 PM. Patient had wheezing still no improvement with inhaler. Patient feels like his shortness of breath is better with oxygen in the ED. He also complains of feeling lightheaded/dizzy with standing. He continues to have cough productive of brown sputum and chills. He is compliant with his level Levaquin and Zyvox that was prescribed at discharge. Patient is supposed to be on the antibiotics for a total of 21 days ending date 10/10/2017. He is also scheduled to see the [facility] on 10/14 and has had difficulty scheduling follow-up with infectious disease. No pain reported - Related Data Previous Rx's Medication Instructions Recorded Last Taken Type Temazepam [Restoril] 15 mg PO QHS PRN #7 capsule 09/16/17 Unknown Rx ALBUTEROL Inhaler [ProAir HFA 2 puff IH QID PRN #1 inhalation 09/29/17 Unknown Rx Inhaler] Famotidine [Pepcid] 20 mg PO BID #30 tablet 09/29/17 Unknown Rx Ibuprofen [Motrin 600 MG tab] 600 mg PO TID PRN #15 tablet 09/29/17 Unknown Rx Loratadine/Pseudoephedrine 1 each PO Q24HR #10 tablet 09/29/17 Unknown Rx [Claritin-D 24HR] guaiFENesin DM [Guaifenesin Dm 10 ml PO Q4H PRN 10 Days oral.liqd 09/29/17 Unknown Rx Syrup] Ipratropium/Albuter (Nf) 2 puff IH QID #1 inha 10/08/17 Unknown Rx [Combivent (Nf)] Levofloxacin [Levaquin TAB] 750 mg PO Q24HR #7 tablet 10/08/17 Unknown Rx Linezolid [Zyvox] 600 mg PO Q12HR #14 tablet 10/08/17 Unknown Rx Allergies Allergy/AdvReac Type Severity Reaction Status Date / Time No Known Allergies Allergy Verified 05/15/17 17:01 ED Review of Systems ROS: Stated complaint: SOB Other details as noted in HPI Comment: All other systems reviewed and negative Other: Constitutional: No fevers Eyes: No eye pain visual changes ENT: No ear pain or throat pain Neck: Denies pain Respiratory: As per HPI Cardiovascular: Denies chest pain GI: Denies abdominal pain, nausea, vomiting, diarrhea : Denies dysuria Musculoskeletal: Denies back pain, joint swelling Skin: Denies rash, lesions, erythema Neurologic: Denies headache, numbness Psychiatric: Denies suicidal ideation, hallucinations ED Past Medical Hx - Past Medical History Previous Medical History?: No Hx HIV: No - Surgical History Past Surgical History?: No - Social History Smoking Status: Former Smoker Substance Use Type: None - Medications Home Medications: Home Medications Medication Instructions Recorded Confirmed Last Taken Type Temazepam [Restoril] 15 mg PO QHS PRN #7 capsule 09/16/17 09/17/17 Unknown Rx ALBUTEROL Inhaler [ProAir HFA 2 puff IH QID PRN #1 inhalation 09/29/17 Unknown Rx Inhaler] Famotidine [Pepcid] 20 mg PO BID #30 tablet 09/29/17 Unknown Rx Ibuprofen [Motrin 600 MG tab] 600 mg PO TID PRN #15 tablet 09/29/17 Unknown Rx Loratadine/Pseudoephedrine 1 each PO Q24HR #10 tablet 09/29/17 Unknown Rx [Claritin-D 24HR] guaiFENesin DM [Guaifenesin Dm 10 ml PO Q4H PRN 10 Days oral.liqd 09/29/17 Unknown Rx Syrup] Ipratropium/Albuter (Nf) 2 puff IH QID #1 inha 10/08/17 Unknown Rx [Combivent (Nf)] Levofloxacin [Levaquin TAB] 750 mg PO Q24HR #7 tablet 10/08/17 Unknown Rx Linezolid [Zyvox] 600 mg PO Q12HR #14 tablet 10/08/17 Unknown Rx ED Physical Exam - General Limitations: No Limitations - Other Other exam information: General: No limitations, patient is alert in no acute distress Head exam: Atraumatic, normocephalic Eyes exam: Normal appearance ENT: Moist mucous membrane, normal oropharynx Neck exam: Normal inspection, full range of motion, no meningismus nontender Respiratory exam: Diminished breath sounds with fine crackles in the left base compared to the right, no tachypnea or accessory muscle use Cardiovascular: Normal rate and rhythm, normal heart sounds. Increased heart rate with sitting up in the bed Abdomen: Soft, nondistended, and nontender, with normal bowel sounds, no rebound, or guarding Extremity: Full range of motion normal inspection no deformity, tenderness or edema Back: Normal Inspection, full range of motion, no tenderness Neurologic: Alert, oriented x3, cranial nerves intact, no motor or sensory deficit Psychiatric: normal affect, normal mood Skin: Warm, dry, intact ED Course Vital Signs 10/07/17 10/08/17 10/08/17 22:13 04:16 04:33 Temperature 98.6 F Pulse Rate 100 H 125 H Pulse Rate [ Bilateral] Pulse Rate [ Lying] Respiratory 18 26 H 25 H Rate Respiratory Rate [Bilateral ] Blood Pressure 121/81 Blood Pressure [Lying] O2 Sat by Pulse 98 95 99 Oximetry 10/08/17 10/08/17 10/08/17 04:35 04:37 04:39 Temperature Pulse Rate 94 H 93 H 96 H Pulse Rate [ Bilateral] Pulse Rate [ Lying] Respiratory 24 22 18 Rate Respiratory Rate [Bilateral ] Blood Pressure Blood Pressure [Lying] O2 Sat by Pulse 100 100 100 Oximetry 10/08/17 10/08/17 10/08/17 04:41 04:43 04:45 Temperature Pulse Rate 91 H 89 92 H Pulse Rate [ Bilateral] Pulse Rate [ Lying] Respiratory 19 18 18 Rate Respiratory Rate [Bilateral ] Blood Pressure Blood Pressure [Lying] O2 Sat by Pulse 100 100 100 Oximetry 10/08/17 10/08/17 10/08/17 04:47 04:49 04:51 Temperature Pulse Rate 93 H 93 H 90 Pulse Rate [ Bilateral] Pulse Rate [ Lying] Respiratory 19 19 19 Rate Respiratory Rate [Bilateral ] Blood Pressure Blood Pressure [Lying] O2 Sat by Pulse 100 100 100 Oximetry 10/08/17 10/08/17 10/08/17 04:53 04:55 04:57 Temperature Pulse Rate 91 H 91 H 92 H Pulse Rate [ Bilateral] Pulse Rate [ Lying] Respiratory 19 20 18 Rate Respiratory Rate [Bilateral ] Blood Pressure Blood Pressure [Lying] O2 Sat by Pulse 100 100 100 Oximetry 10/08/17 10/08/17 10/08/17 04:59 05:01 05:03 Temperature Pulse Rate 79 88 87 Pulse Rate [ Bilateral] Pulse Rate [ Lying] Respiratory 16 18 19 Rate Respiratory Rate [Bilateral ] Blood Pressure Blood Pressure [Lying] O2 Sat by Pulse 100 100 100 Oximetry 10/08/17 10/08/17 10/08/17 05:05 05:07 05:09 Temperature Pulse Rate 78 77 89 Pulse Rate [ Bilateral] Pulse Rate [ Lying] Respiratory 21 18 18 Rate Respiratory Rate [Bilateral ] Blood Pressure Blood Pressure [Lying] O2 Sat by Pulse 100 100 100 Oximetry 10/08/17 10/08/17 10/08/17 05:11 05:13 05:15 Temperature Pulse Rate 75 93 H 92 H Pulse Rate [ Bilateral] Pulse Rate [ Lying] Respiratory 19 22 19 Rate Respiratory Rate [Bilateral ] Blood Pressure Blood Pressure [Lying] O2 Sat by Pulse 100 100 100 Oximetry 10/08/17 10/08/17 10/08/17 05:17 05:19 05:21 Temperature Pulse Rate 91 H 91 H 89 Pulse Rate [ Bilateral] Pulse Rate [ Lying] Respiratory 18 18 18 Rate Respiratory Rate [Bilateral ] Blood Pressure Blood Pressure [Lying] O2 Sat by Pulse 100 100 100 Oximetry 10/08/17 10/08/17 10/08/17 05:23 05:25 05:27 Temperature Pulse Rate 93 H 89 90 Pulse Rate [ Bilateral] Pulse Rate [ Lying] Respiratory 18 22 19 Rate Respiratory Rate [Bilateral ] Blood Pressure Blood Pressure [Lying] O2 Sat by Pulse 100 100 100 Oximetry 10/08/17 10/08/17 10/08/17 05:29 05:31 05:33 Temperature Pulse Rate 90 90 95 H Pulse Rate [ Bilateral] Pulse Rate [ Lying] Respiratory 16 17 18 Rate Respiratory Rate [Bilateral ] Blood Pressure Blood Pressure [Lying] O2 Sat by Pulse 100 100 100 Oximetry 10/08/17 10/08/17 10/08/17 05:35 05:37 05:39 Temperature Pulse Rate 92 H 94 H 105 H Pulse Rate [ Bilateral] Pulse Rate [ Lying] Respiratory 17 18 22 Rate Respiratory Rate [Bilateral ] Blood Pressure Blood Pressure [Lying] O2 Sat by Pulse 100 100 100 Oximetry 10/08/17 10/08/17 10/08/17 05:41 05:43 05:45 Temperature Pulse Rate 91 H 95 H 84 Pulse Rate [ Bilateral] Pulse Rate [ Lying] Respiratory 20 16 17 Rate Respiratory Rate [Bilateral ] Blood Pressure Blood Pressure [Lying] O2 Sat by Pulse 100 100 100 Oximetry 10/08/17 10/08/17 10/08/17 05:47 05:49 05:51 Temperature Pulse Rate 83 85 97 H Pulse Rate [ Bilateral] Pulse Rate [ Lying] Respiratory 18 16 17 Rate Respiratory Rate [Bilateral ] Blood Pressure Blood Pressure [Lying] O2 Sat by Pulse 100 100 100 Oximetry 10/08/17 10/08/17 10/08/17 05:53 05:55 05:57 Temperature Pulse Rate 87 88 91 H Pulse Rate [ Bilateral] Pulse Rate [ Lying] Respiratory 20 20 22 Rate Respiratory Rate [Bilateral ] Blood Pressure Blood Pressure [Lying] O2 Sat by Pulse 100 100 100 Oximetry 10/08/17 10/08/17 10/08/17 05:59 06:01 06:03 Temperature Pulse Rate 87 80 88 Pulse Rate [ Bilateral] Pulse Rate [ Lying] Respiratory 18 18 19 Rate Respiratory Rate [Bilateral ] Blood Pressure Blood Pressure [Lying] O2 Sat by Pulse 100 100 100 Oximetry 10/08/17 10/08/17 10/08/17 06:05 06:07 06:09 Temperature Pulse Rate 86 87 88 Pulse Rate [ Bilateral] Pulse Rate [ Lying] Respiratory 19 18 19 Rate Respiratory Rate [Bilateral ] Blood Pressure Blood Pressure [Lying] O2 Sat by Pulse 100 100 100 Oximetry 10/08/17 10/08/17 10/08/17 06:11 06:13 06:15 Temperature Pulse Rate 89 89 104 H Pulse Rate [ Bilateral] Pulse Rate [ Lying] Respiratory 19 19 17 Rate Respiratory Rate [Bilateral ] Blood Pressure Blood Pressure [Lying] O2 Sat by Pulse 100 100 100 Oximetry 10/08/17 10/08/17 10/08/17 06:17 06:19 06:21 Temperature Pulse Rate 82 89 76 Pulse Rate [ Bilateral] Pulse Rate [ Lying] Respiratory 16 19 18 Rate Respiratory Rate [Bilateral ] Blood Pressure Blood Pressure [Lying] O2 Sat by Pulse 100 100 100 Oximetry 10/08/17 10/08/17 10/08/17 06:23 06:25 06:27 Temperature Pulse Rate 87 89 89 Pulse Rate [ Bilateral] Pulse Rate [ Lying] Respiratory 19 16 17 Rate Respiratory Rate [Bilateral ] Blood Pressure Blood Pressure [Lying] O2 Sat by Pulse 100 100 100 Oximetry 10/08/17 10/08/17 10/08/17 06:29 06:31 06:33 Temperature Pulse Rate 93 H 90 97 H Pulse Rate [ Bilateral] Pulse Rate [ Lying] Respiratory 21 19 21 Rate Respiratory Rate [Bilateral ] Blood Pressure Blood Pressure [Lying] O2 Sat by Pulse 100 100 100 Oximetry 10/08/17 10/08/17 10/08/17 06:35 06:37 06:39 Temperature Pulse Rate 103 H 96 H 94 H Pulse Rate [ Bilateral] Pulse Rate [ Lying] Respiratory 15 21 18 Rate Respiratory Rate [Bilateral ] Blood Pressure Blood Pressure [Lying] O2 Sat by Pulse 100 100 99 Oximetry 10/08/17 10/08/17 10/08/17 06:41 06:43 06:45 Temperature Pulse Rate 91 H 102 H 100 H Pulse Rate [ Bilateral] Pulse Rate [ Lying] Respiratory 21 33 H 16 Rate Respiratory Rate [Bilateral ] Blood Pressure Blood Pressure [Lying] O2 Sat by Pulse 99 100 100 Oximetry 10/08/17 10/08/17 10/08/17 06:47 06:49 06:51 Temperature Pulse Rate 91 H 96 H 88 Pulse Rate [ Bilateral] Pulse Rate [ Lying] Respiratory 17 24 15 Rate Respiratory Rate [Bilateral ] Blood Pressure Blood Pressure [Lying] O2 Sat by Pulse 100 100 98 Oximetry 10/08/17 10/08/17 10/08/17 06:53 06:54 06:55 Temperature Pulse Rate 115 H 94 H 101 H Pulse Rate [ Bilateral] Pulse Rate [ Lying] Respiratory 23 26 H 28 H Rate Respiratory Rate [Bilateral ] Blood Pressure 122/80 118/82 Blood Pressure [Lying] O2 Sat by Pulse 99 98 98 Oximetry 10/08/17 10/08/17 10/08/17 06:56 06:57 06:59 Temperature Pulse Rate 111 H 99 H 91 H Pulse Rate [ Bilateral] Pulse Rate [ Lying] Respiratory 33 H 27 H 29 H Rate Respiratory Rate [Bilateral ] Blood Pressure 128/80 128/80 128/80 Blood Pressure [Lying] O2 Sat by Pulse 98 97 98 Oximetry 10/08/17 10/08/17 10/08/17 07:00 07:01 07:05 Temperature Pulse Rate Pulse Rate [ Bilateral] Pulse Rate [ 91 H Lying] Respiratory Rate Respiratory Rate [Bilateral ] Blood Pressure 112/86 112/86 Blood Pressure 122/80 [Lying] O2 Sat by Pulse 97 96 Oximetry 10/08/17 10/08/17 10/08/17 07:27 07:31 07:46 Temperature Pulse Rate Pulse Rate [ 88 92 H Bilateral] Pulse Rate [ Lying] Respiratory Rate Respiratory 18 18 Rate [Bilateral ] Blood Pressure 118/75 Blood Pressure [Lying] O2 Sat by Pulse 100 Oximetry 10/08/17 10/08/17 10/08/17 07:57 08:09 08:31 Temperature Pulse Rate 118 H 92 H Pulse Rate [ Bilateral] Pulse Rate [ Lying] Respiratory 21 Rate Respiratory Rate [Bilateral ] Blood Pressure 121/79 116/87 Blood Pressure [Lying] O2 Sat by Pulse 100 98 Oximetry 10/08/17 09:00 Temperature 99.1 F Pulse Rate Pulse Rate [ Bilateral] Pulse Rate [ Lying] Respiratory Rate Respiratory Rate [Bilateral ] Blood Pressure Blood Pressure [Lying] O2 Sat by Pulse Oximetry - Reevaluation(s) Reevaluation #1: 10/08/17 09:08 Patient feel better after ED treatment. - Consultations Consultation #1: 10/08/17 08:53 case D/w Dr Rowley [employer] pulm: rec to extend antibiotics for another 7 days. Recommend follow-up as suggested since no desaturation, leukocytosis and, or worsening pneumonia. Recommended to add Combivent to meds ED Medical Decision Making - Lab Data Result diagrams: 10/07/17 22:44 10/07/17 22:44 Lab Results 10/07/17 10/07/17 10/08/17 Range/Units 22:44 22:44 07:13 WBC 10.9 (4.5-11.0) K/mm3 RBC 3.96 (3.65-5.03) M/mm3 Hgb 12.6 (11.8-15.2) gm/dl Hct 37.1 (35.5-45.6) % MCV 94 (84-94) fl MCH 32 (28-32) pg MCHC 34 (32-34) % RDW 13.5 (13.2-15.2) % Plt Count 449 H (140-440) K/mm3 Lymph % (Auto) 20.5 (13.4-35.0) % [place] % (Auto) 5.2 (0.0-7.3) % Eos % (Auto) 0.8 (0.0-4.3) % Baso % (Auto) 1.1 (0.0-1.8) % Lymph # 2.2 (1.2-5.4) K/mm3 [place] # 0.6 (0.0-0.8) K/mm3 Eos # 0.1 (0.0-0.4) K/mm3 Baso # 0.1 (0.0-0.1) K/mm3 Seg Neutrophils % 72.4 H (40.0-70.0) % Seg Neutrophils # 7.9 H (1.8-7.7) K/mm3 POC ABG pH 7.423 (7.35-7.45) POC ABG pCO2 39.3 (35-45) POC ABG pO2 71 L (80-105) POC ABG HCO3 25.6 POC ABG Total CO2 27 POC ABG O2 Sat 94 POC ABG Base Excess 1 FiO2 21 % Sodium 138 (137-145) mmol/L Potassium 3.8 (3.6-5.0) mmol/L Chloride 96.7 L (98-107) mmol/L Carbon Dioxide 27 (22-30) mmol/L Anion Gap 18 mmol/L BUN 5 L (9-20) mg/dL Creatinine 0.8 (0.8-1.5) mg/dL Estimated GFR > 60 ml/min BUN/Creatinine Ratio 6 % Glucose 108 H (75-100) mg/dL Calcium 9.2 (8.4-10.2) mg/dL - EKG Data -: EKG Interpreted by Nv EKG shows normal: sinus rhythm, axis (25), QRS complexes (95), ST-T waves (no stemi/t inv) Rate: normal (89) - EKG Data When compared to previous EKG there are: no significant change - Radiology Data Radiology results: report reviewed Read by radiologist Chest x-ray PA and lateral: Bilateral infiltrates have improved since prior study although have not resolved - Medical Decision Making Patient recently infected with MRSA necrotizing pneumonia and Legionella pneumonia. Symptoms as improvement outpatient treatment. As per pulmonology discontinued 6-8 weeks to completely resolve. Recommend to extend his antibiotics for another days and to follow up as scheduled. Patient informed to call the [facility] [employer] [facility] office on Tuesday if he requires help with obtaining the Zyvox. Combivent will be prescribed as recommended. ABG does not reveal indication for home oxygen therapy or acid-base disturbance. Patient was ambulating in the ED and no desaturation or respiratory distress noted. - Differential Diagnosis pneumonia, bronchitis, anemia, dehydration, hypoxia Critical Care Time: No Critical care attestation.: If time is entered above; I have spent that time in minutes in the direct care of this critically ill patient, excluding procedure time. ED Disposition Clinical Impression: Legionella pneumonia, MRSA pneumonia, Shortness of breath Disposition: DC- TO HOME OR SELFCARE Is pt being admited?: No Does the pt Need Aspirin: No Condition: Stable Instructions: Bacterial Pneumonia (ED) Additional Instructions: Continue your current antibiotics. I have prescribed an additional 7 days of your medication. Follow up with the [facility] [employer] [facility] as scheduled. Try to call the office on Tuesday to see if you can be seen sooner than scheduled. Also the office may be able to help you afford the additional Zyvox prescription. Please return if symptoms worsen as indicated by your discharge instructions. Prescriptions: Ipratropium/Albuter (Nf) [Combivent (Nf)] 2 puff IH QID #1 inha Levofloxacin [Levaquin TAB] 750 mg PO Q24HR #7 tablet Linezolid [Zyvox] 600 mg PO Q12HR #14 tablet Referrals: ROB CHUNG MD [Staff Physician] - 2-3 Days Time of Disposition: 09:12
[2017-10-08] MEDS ORDERED: DUONEB *Not for PRN Use IH ONE (07:12)
[2017-10-08] MEDS ORDERED: NORCO 5/325 PO ONE (08:03)
[2017-10-08] MEDS ORDERED: LEVAQUIN PO ONE (08:51)
[2017-10-08] MEDS ORDERED: ZYVOX PO ONE (09:07)
[2017-10-08 10:22] VITALS: BP 118/85
== END 2017-10-08 10:21 | disposition home or self-care (01) ==
LOC: ED 19:59
DX: A48.1 Legionnaires' disease (principal); Z87.891 Personal history of nicotine dependence
CPT/HCPCS: 36415; 71046; 80048; 82803; 85025; 93005; 93010; 94640; 96360

== ENCOUNTER 2019-07-02 10:05 | Emergency (ER) | payer SELFPAY ==
[2019-07-02 10:33] VITALS: BP 137/90
[2019-07-02] MEDS ORDERED: ALBUTEROL 2.5 MG/3 ML NEBU IH ONE (11:21)
[2019-07-02] MEDS ORDERED: IPRATROPIUM 0.02% NEBU 2.5 ML IH ONE (11:21)
[2019-07-02] MEDS ORDERED: predniSONE 20 MG TAB PO ONE (11:22)
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
== END 2019-07-02 13:20 | disposition home or self-care (01) ==
LOC: ED 10:05
DX: J45.901 Unspecified asthma with (acute) exacerbation (principal); T22.20XA Burn of second degree of shoulder and upper limb, except wrist and hand, unspecified site, initial encounter; X19.XXXA Contact with other heat and hot substances, initial encounter; Y93.89 Activity, other specified; Y92.89 Other specified places as the place of occurrence of the external cause; Y99.8 Other external cause status
CPT/HCPCS: 99282; J7512

== ENCOUNTER 2020-12-05 12:18 | Emergency (ER) | payer SELFPAY ==
--- NOTE | 2020-12-05 14:08 | XRay Report ---
RIGHT KNEE 3 VIEWS INDICATION / CLINICAL INFORMATION: Acute right knee pain. Right knee began locking up this morning per patient. COMPARISON: None available. FINDINGS: BONES and JOINT(S): No acute fracture or subluxation. No significant arthritis. SOFT TISSUES: No significant abnormality. ADDITIONAL FINDINGS: None. IMPRESSION: 1. No acute findings. Signer Name: Raúl Nam MD Signed: 12/05/2020 2:03 PM Workstation Name: [id number]
--- NOTE | 2020-12-05 15:20 | Emergency Department Report ---
ED General Adult HPI - General Chief complaint: Extremity Problem,Nontraumatic Stated complaint: RT KNEE/LEG PAIN Time Seen by Provider: 12/05/20 15:12 Source: patient Mode of arrival: Wheelchair Limitations: Physical Limitation - History of Present Illness Initial comments: 44-year-old immunocompetent male patient presents to the emergency department wi th complaints of nontraumatic right knee pain starting yesterday. Patient states he was standing upright when his knee "locked up" on him, causing him to fall. There is no subsequent head injury or loss of consciousness. Pain is localized to the right knee. He does not have a history of prior knee injuries. No recent illness. Pain is worse with weightbearing. Denies hip pain, lower leg pain, ankle pain, foot pain, paresthesias, skin color changes. Denies all other complaints at this time. - Related Data Previous Rx's Medication Instructions Recorded Last Taken Type Temazepam [Restoril] 15 mg PO QHS PRN #7 capsule 09/16/17 Unknown Rx Albuterol Mdi (or & Nicu Only) 2 puff IH QID PRN #1 inhalation 09/29/17 Unknown Rx [ProAir HFA Inhaler] Famotidine [Pepcid] 20 mg PO BID #30 tablet 09/29/17 Unknown Rx Ibuprofen [Motrin 600 MG tab] 600 mg PO TID PRN #15 tablet 09/29/17 Unknown Rx Loratadine/Pseudoephedrine 1 each PO Q24HR #10 tablet 09/29/17 Unknown Rx [Claritin-D 24HR] guaiFENesin DM [Guaifenesin Dm 10 ml PO Q4H PRN 10 Days oral.liqd 09/29/17 Unknown Rx Syrup] Ipratropium/Albuter (Nf) 2 puff IH QID #1 inha 10/08/17 Unknown Rx [Combivent (Nf)] Linezolid [Zyvox] 600 mg PO Q12HR #14 tablet 10/08/17 Unknown Rx levoFLOXacin [Levaquin TAB] 750 mg PO Q24HR #7 tablet 10/08/17 Unknown Rx Silver Sulfadiazine [Silvadene] 1 applicatio TP BID #50 cream..g. 07/02/19 Unknown Rx predniSONE [Deltasone] 20 mg PO QDAY #5 tab 11/04/19 Unknown Rx traMADoL [Ultram] 50 mg PO Q6HR PRN #12 tablet 07/02/19 Unknown Rx ALBUTEROL NEB's [Proventil 0.083% 2.5 mg IH TID PRN #1 box 01/18/20 Unknown Rx NEBS] Albuterol Mdi (or & Nicu Only) 2 puff IH QID PRN #1 inhalation 01/18/20 Unknown Rx [ProAir HFA Inhaler] Azithromycin [Zithromax Z-ABRAHAM] 250 mg PO DAILY #6 tab 01/18/20 Unknown Rx predniSONE [Deltasone] 60 mg PO QDAY #20 tab 01/18/20 Unknown Rx Naproxen 500 mg PO BID #20 tablet 12/05/20 Unknown Rx Allergies Allergy/AdvReac Type Severity Reaction Status Date / Time No Known Allergies Allergy Verified 01/18/20 09:10 ED Review of Systems ROS: Stated complaint: RT KNEE/LEG PAIN Other details as noted in HPI Other: GENERAL: Negative for fever. CARDIOVASCULAR: Negative for chest pain. PULMONARY: Negative for shortness of breath. GASTROINTESTINAL: Negative for abdominal pain. MUSCULOSKELETAL: Positive for knee pain. NEUROLOGICAL: Negative for headache. INTEGUMENTARY: Negative for rash. ED Past Medical Hx - Past Medical History Hx Asthma: Yes Hx HIV: No - Surgical History Past Surgical History?: No - Social History Smoking Status: Former Smoker Substance Use Type: None - Medications Home Medications: Home Medications Medication Instructions Recorded Confirmed Last Taken Type Temazepam [Restoril] 15 mg PO QHS PRN #7 capsule 09/16/17 09/17/17 Unknown Rx Albuterol Mdi (or & Nicu Only) 2 puff IH QID PRN #1 inhalation 09/29/17 Unknown Rx [ProAir HFA Inhaler] Famotidine [Pepcid] 20 mg PO BID #30 tablet 09/29/17 Unknown Rx Ibuprofen [Motrin 600 MG tab] 600 mg PO TID PRN #15 tablet 09/29/17 Unknown Rx Loratadine/Pseudoephedrine 1 each PO Q24HR #10 tablet 09/29/17 Unknown Rx [Claritin-D 24HR] guaiFENesin DM [Guaifenesin Dm 10 ml PO Q4H PRN 10 Days oral.liqd 09/29/17 Unknown Rx Syrup] Ipratropium/Albuter (Nf) 2 puff IH QID #1 inha 10/08/17 Unknown Rx [Combivent (Nf)] Linezolid [Zyvox] 600 mg PO Q12HR #14 tablet 10/08/17 Unknown Rx levoFLOXacin [Levaquin TAB] 750 mg PO Q24HR #7 tablet 10/08/17 Unknown Rx Silver Sulfadiazine [Silvadene] 1 applicatio TP BID #50 cream..g. 07/02/19 Unknown Rx predniSONE [Deltasone] 20 mg PO QDAY #5 tab 07/02/19 Unknown Rx traMADoL [Ultram] 50 mg PO Q6HR PRN #12 tablet 07/02/19 Unknown Rx ALBUTEROL NEB's [Proventil 0.083% 2.5 mg IH TID PRN #1 box 01/18/20 Unknown Rx NEBS] Albuterol Mdi (or & Nicu Only) 2 puff IH QID PRN #1 inhalation 01/18/20 Unknown Rx [ProAir HFA Inhaler] Azithromycin [Zithromax Z-ABRAHAM] 250 mg PO DAILY #6 tab 01/18/20 Unknown Rx predniSONE [Deltasone] 60 mg PO QDAY #20 tab 01/18/20 Unknown Rx Naproxen 500 mg PO BID #20 tablet 12/05/20 Unknown Rx ED Physical Exam - General Limitations: Physical Limitation - Other Other exam information: General: Awake, appropriately interactive, no acute distress. Neck: Supple. Full range of motion intact. Cardiovascular: Normal peripheral perfusion. Pulmonary: No respiratory distress. Patient is speaking normally without use of accessory muscles. Skin: No apparent rashes or lesions. Neurological: No facial asymmetry. Speech is clear. Follows commands. Patient is alert and oriented. Musculoskeletal: Tenderness to palpation throughout the right knee without obvious deformity, dislocation, or discoloration. No appreciable joint effusion. Anterior drawer sign is negative. Valgus and varus stress tests are negative. Flexion and extension mechanisms painful but intact. There is no overlying erythema or warmth. Distal neurovascular motor/sensory function intact. Psych: Cooperative. Appropriate mood and affect. ED Course Vital Signs 12/05/20 13:02 Temperature 98.3 F Pulse Rate 89 Respiratory 18 Rate Blood Pressure 139/98 O2 Sat by Pulse 95 Oximetry ED Medical Decision Making - Medical Decision Making Differential diagnosis including but not limited to: sprain, strain, fracture, contusion, dislocation, meniscal injury, septic arthritis, osteoarthritis, rheumatoid arthritis On reevaluation, patient remains stable. Repeat neurovascular exam remains intact. Patient is not an appropriate candidate for rule out using [place] knee rules due to inability to bear weight on the right knee. X-rays obtained; no acute process identified. Patient is not exhibiting pain out of proportion to exam findings, he is immunocompetent, and he has no overlying warmth/erythema to the affected joint; low clinical suspicion for underlying infection. History and exam findings suggestive of soft tissue injury, likely involving meniscus or collateral ligament. Patient will be discharged home with knee immobilizer, crutches, appropriate analgesics, and referral to orthopedics. Patient expr essed understanding and is agreeable to plan of care. RICE precautions discussed. Strict return precautions provided. Repeat exam is unremarkable and benign. History, exam, diagnostic testing, and current condition do not suggest worrisome pathology to warrant further testing, continued ED treatment, admission, or surgical evaluation at this point. Given the low probability of a significant medical illness, it would be more likely to result in harm than benefit to perform further testing at this stage. Discussed findings, presumptive diagnosis, need for follow-up and specific signs/symptoms that should prompt immediate return to the emergency department. Instructions were explained in detail to the patient in addition to giving written discharge information. Patient expressed understanding and was given the opportunity to ask questions, all of which were satisfactorily answered prior to discharge home. Critical care attestation.: If time is entered above; I have spent that time in minutes in the direct care of this critically ill patient, excluding procedure time. ED Disposition Clinical Impression: Right knee pain Qualifiers: Chronicity: acute Qualified Code(s): M25.561 - Pain in right knee Disposition: DC-01 TO HOME OR SELFCARE Is pt being admited?: No Does the pt Need Aspirin: No Condition: Stable Instructions: Acute Knee Pain, Adult Additional Instructions: Take Tylenol every 4 hours as needed for pain. Take Naprosyn twice daily with food as needed for pain. Apply ice to affected area as needed for pain. Wear knee immobilizer as directed. Use crutches as needed. Follow-up with Dr. Millan, orthopedics, within 1 week. Call tomorrow to schedule an appointment. Return to the emergency department immediately for new or worsening symptoms. Specifically, return to the emergency department immediately for fever, increased pain, swelling, numbness/tingling, skin color changes, or any other concerns. Prescriptions: Naproxen 500 mg PO BID #20 tablet Referrals: DIDIER MILLAN MD [Staff Physician] - 3-5 Days Time of Disposition: 15:20
[2020-12-05 15:21] VITALS: BP 139/98
== END 2020-12-05 16:20 | disposition home or self-care (01) ==
LOC: ED 12:18
DX: M25.561 Pain in right knee (principal); J45.909 Unspecified asthma, uncomplicated; Z79.899 Other long term (current) drug therapy; Z87.891 Personal history of nicotine dependence
CPT/HCPCS: 99283

== ENCOUNTER 2022-04-09 12:22 | Emergency (ER) | payer OTHER ==
[2022-04-09] MEDS ORDERED: CYCLOBENZAPRINE 10 MG TAB PO ONE (18:29)
[2022-04-09] MEDS ORDERED: oxyCODONE /ACETAMINOPHEN 5-325MG TAB PO ONE (18:29)
[2022-04-09] MEDS ORDERED: KETOROLAC 10 MG TAB PO ONE (18:29)
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
[2022-04-09 20:43] VITALS: BP 137/84
== END 2022-04-09 20:43 | disposition home or self-care (01) ==
LOC: ED 12:22
DX: R07.81 Pleurodynia (principal); J45.909 Unspecified asthma, uncomplicated; Z87.891 Personal history of nicotine dependence; V89.2XXA Person injured in unspecified motor-vehicle accident, traffic, initial encounter; Y93.89 Activity, other specified; Y92.89 Other specified places as the place of occurrence of the external cause; Y99.8 Other external cause status
CPT/HCPCS: 99283